=== PATIENT | female | born 1940 | race Caucasian/White ===

== ENCOUNTER 2018-06-20 01:19 | Inpatient (IN) | payer MEDICARE, OTHER ==
[~2018-06-20] VITALS: Ht 167.6 cm; Wt 76.4 kg
[2018-06-20] VITALS (7 sets, daily range): BP systolic 95–132; BP diastolic 48–68
[2018-06-20] MEDS ORDERED: Isovue-300 100ml vial INJ PRN (02:00)
[2018-06-20] MEDS ORDERED: Morphine Sulfate 4mg/ml Inj (IV/IM USE ONLY) IVP ONE ×2 (02:00→03:30)
--- NOTE | 2018-06-20 02:21 | Emergency Room Report ---
History of Present Illness General Chief Complaint: Abdominal Pain Source: Patient, Family Member Present Illness HPI Patient presents with severe abdominal pain. The began earlier this morning. She feels it across her lower abdomen. She states that she feels that her colon is going to explode. She moved her bowels last night without difficulty. She feels nausea without vomiting. There is no blood in the stool. She denies any dysuria. She's never had this pain before. The pain is constant and nonradiating. The pain is rated 10/10. No medicines were taken. No fevers. No URI sy, chest pain, cough, dyspnea, rashes, headache, joint pain. The pain makes her feel anxious. She feels like she needs to pass gas. H/O valve surgery (details unclear), not on anticoagulation. No DM, HTN. Allergies: Coded Allergies: No Known Allergies (Unverified , 06/20/18) Patient History Past Medical History: see triage record Past Surgical History: other - valve surgery Social History: Denies: smoking, alcohol use, drug use Social History Narrative with sig other Last Menstrual Period: 4 decades ago Now: No Reviewed Nursing Documentation: PMH: Agreed; PSxH: Agreed Nursing Documentation-PMH Hx Cardiac Problems: Yes - heart valve surgery Review of Systems All Other Systems: negative except mentioned in HPI Physical Exam Vital Signs Date Time Temp Pulse Resp B/P (MAP) Pulse Ox O2 Delivery O2 Flow Rate FiO2 06/20/18 01:39 99.5 66 12 127/64 96 Room Air Sp02 EP Interpretation: reviewed, normal General Appearance: no apparent distress, GCS 15, mild distress Head: normocephalic Eyes: bilateral eye normal inspection, bilateral eye PERRL ENT: moist mucus membranes Neck: supple Respiratory: lungs clear, normal breath sounds Cardiovascular #1: regular rate, rhythm Cardiovascular #2: 2+ radial (R) Gastrointestinal: normal inspection, no mass, non-distended, no rebound, guarding, tenderness - diffuse, other - no referred pain Genitourinary: no CVA tenderness Musculoskeletal: back normal, gait/station normal, normal range of motion Neurologic: alert, oriented x3, grossly normal Psychiatric: anxious Skin: normal inspection, warm/dry Medical Decision Making Diagnostic Impression: Primary Impression: Abdominal pain Qualified Codes: R10.84 - Generalized abdominal pain Additional Impressions: Duodenitis Pancratic lesions Cholelithiasis Qualified Codes: K80.20 - Calculus of gallbladder without cholecystitis without obstruction ER Course Patient presents with severe lower abdominal pain. Differential includes appendicitis, diverticulitis, UTI, pyelonephritis amongst others. Evaluation will be with labs, CT the abdomen and pelvis, EKG and chest x-ray. The patient will be treated with IV hydration and analgesia. Temporal low threshold for starting antibiotics based on the CT read report. EKG with normal sinus rhythm with a right axis deviation no acute changes. Leukocytosis. Awaiting CT but will need admission as still with pain (though improved). Delay due to problems with CT scan. CT with question of pancreatitis vs duodenitis. (Lipase normal). Start Cefepime and Flagyl. Patient still with pain but periods of improvement. Contact Dr. Romero for admission. Also contact Dr. Carlson. Laboratory Tests Test 06/20/18 01:45 06/20/18 01:50 Urine Color Yellow Urine Appearance Clear Urine pH 7 (4.5-8.0) Urine Specific [place] 1.010 (1.005-1.035) Urine Protein 1+ (NEGATIVE) H Urine Glucose (UA) Negative (NEGATIVE) Urine Ketones Negative (NEGATIVE) Urine Blood 3+ (NEGATIVE) H Urine Nitrite Negative (NEGATIVE) Urine Bilirubin Negative (NEGATIVE) Urine Urobilinogen 1 MG/DL (0.0-1.0) H Urine Leukocyte Esterase 1+ (NEGATIVE) H Urine RBC 2-4 /HPF (0 - 2) H Urine WBC 2-4 /HPF (0 - 2) Urine Squamous Epithelial Cells Occasional /LPF Urine Bacteria Occasional /HPF (NONE) White Blood Count 14.3 K/UL (4.8-10.8) H Red Blood Count 4.98 M/UL (4.20-5.40) Hemoglobin 14.6 G/DL (12.0-16.0) Hematocrit 43.7 % (37.0-47.0) Mean Corpuscular Volume 88 FL (80-99) Mean Corpuscular Hemoglobin 29.4 PG (27.0-31.0) Mean Corpuscular Hemoglobin Concent 33.5 G/DL (32.0-36.0) Red Cell Distribution Width 11.6 % (11.6-14.8) Platelet Count 241 K/UL (150-450) Mean Platelet Volume 7.4 FL (6.5-10.1) Neutrophils (%) (Auto) 83.3 % (45.0-75.0) H Lymphocytes (%) (Auto) 8.6 % (20.0-45.0) L Monocytes (%) (Auto) 6.8 % (1.0-10.0) Eosinophils (%) (Auto) 0.6 % (0.0-3.0) Basophils (%) (Auto) 0.7 % (0.0-2.0) Prothrombin Time 12.3 SEC (9.30-11.50) H Prothrombin Time INR 1.2 (0.9-1.1) H PTT 32 SEC (23-33) Sodium Level 135 MMOL/L (136-145) L Potassium Level 4.2 MMOL/L (3.5-5.1) Chloride Level 99 MMOL/L (98-107) Carbon Dioxide Level 34 MMOL/L (21-32) H Anion Gap 3 mmol/L (5-15) L Blood Urea Nitrogen 13 mg/dL (7-18) Creatinine 0.8 MG/DL (0.55-1.30) Estimate Glomerular Filtration Rate mL/min (>60) Glucose Level 149 MG/DL (74-106) H Calcium Level 9.4 MG/DL (8.5-10.1) Total Bilirubin 0.8 MG/DL (0.2-1.0) Aspartate Amino Transferase (AST) 14 U/L (15-37) L Alanine Aminotransferase (ALT) 16 U/L (12-78) Alkaline Phosphatase 46 U/L (46-116) Troponin I 0.000 ng/mL (0.000-0.056) Total Protein 8.3 G/DL (6.4-8.2) H Albumin 3.4 G/DL (3.4-5.0) Globulin 4.9 g/dL Albumin/Globulin Ratio 0.7 (1.0-2.7) L Lipase 309 U/L (73-393) EKG Diagnostic Results Rate: normal Rhythm: NSR ST Segments: no acute changes - R axis Rhythm Strip Diag. Results EP Interpretation: yes Rhythm: NSR, no PVC's, no ectopy Chest X-Ray Diagnostic Results Chest X-Ray Diagnostic Results : Chest X-Ray Ordered: Yes # of Views/Limited/Complete: 1 View Indication: Other EP Interpretation: Yes Interpretation: no consolidation, no effusion, no pneumothorax Impression: No acute disease Electronically Signed by: Roverto Acosta MD CT/MRI/US Diagnostic Results CT/MRI/US Diagnostic Results : Imaging Test Ordered: abd/pelvis Impression Cholelithiasis. Infiltration mesenteric root - non-specific though suspect infiltration around duodenum and pancreas. Ectatic biliary tree with punctate debris in CBD. Cystic lesions in region of uncinate process of pancreas. Wall thickening of duodenum Diverticulosis. Appendix normal. Fibroid uterus. Last Vital Signs Date Time Temp Pulse Resp B/P (MAP) Pulse Ox O2 Delivery O2 Flow Rate FiO2 06/20/18 10:51 Room Air 06/20/18 09:00 97.7 65 18 108/55 (72) 98 Status: improved Disposition: ADMITTED INPATIENT Condition: Serious Roverto Acosta MD Jun 20, 2018 02:21
[2018-06-20 02:23] LABS: APPEARANCE,URINE CLEAR; BILIRUBIN, URINE NEGATIVE (NEGATIVE); GLUCOSE, URINE (UA) NEGATIVE (NEGATIVE); KETONES,URINE NEGATIVE (NEGATIVE); LEUKOCYTE ESTERASE ,URINE 1+ (NEGATIVE); NITRITE,URINE NEGATIVE (NEGATIVE); PH,URINE 7 (4.5-8.0); PROTEIN,URINE 1+ (NEGATIVE); UROBILINOGEN,URINE 1 MG/DL (0.0-1.0)
[2018-06-20 02:23] LABS: BASOPHILS % (AUTO) 0.7 % (0.0-2.0); EOSINOPHILS % (AUTO) 0.6 % (0.0-3.0); HEMATOCRIT 43.7 % (37.0-47.0); HEMOGLOBIN 14.6 G/DL (12.0-16.0); LYMPHOCYTES % (AUTO) 8.6 % (20.0-45.0); MEAN CORPUSCULAR VOLUME 88 FL (80-99); MONOCYTES % (AUTO) 6.8 % (1.0-10.0); NEUTROPHILS % (AUTO) 83.3 % (45.0-75.0); PLATELET COUNT 241 K/UL (150-450); RED BLOOD COUNT 4.98 M/UL (4.20-5.40); RED CELL DISTRIBUTION WIDTH 11.6 % (11.6-14.8); WHITE BLOOD COUNT 14.3 K/UL (4.8-10.8)
[2018-06-20 02:29] LABS: COLOR,URINE YELLOW
[2018-06-20 02:32] LABS: ANION GAP 3 mmol/L (5-15); BLOOD UREA NITROGEN 13 mg/dL (7-18); CALCIUM 9.4 MG/DL (8.5-10.1); CARBON DIOXIDE 34 MMOL/L (21-32); CHLORIDE 99 MMOL/L (98-107); CREATININE 0.8 MG/DL (0.55-1.30); POTASSIUM 4.2 MMOL/L (3.5-5.1); SODIUM 135 MMOL/L (136-145)
[2018-06-20 02:33] LABS: INR 1.2 (0.9-1.1)
[2018-06-20 02:37] LABS: ALANINE AMINOTRANSFERASE 16 U/L (12-78); ALBUMIN 3.4 G/DL (3.4-5.0); ALBUMIN/GLOBULIN RATIO 0.7 (1.0-2.7); ALKALINE PHOSPHATASE 46 U/L (46-116); ASPARTATE AMINO TRANSFERASE 14 U/L (15-37); BILIRUBIN,TOTAL 0.8 MG/DL (0.2-1.0)
--- NOTE | 2018-06-20 03:42 | Diagnostic Imaging Report ---
EXAM: XR Chest, 1 View CLINICAL HISTORY: ABD PAIN TECHNIQUE: Frontal view of the chest. COMPARISON: 01/26/07 chest radiography. FINDINGS: Lungs: No consolidation, pleural effusion or pneumothorax. Pleural space: See above. Heart: Cardiomegaly demonstrated. Mediastinum: No mediastinal or hilar enlargement. Trachea is unremarkable. Bones/joints: Evidence of prior valvuloplasty with intact sternotomy wires. No concerning bony abnormalities. Vasculature: Atherosclerotic calcifications of the nonenlarged thoracic aortic arch. IMPRESSION: No acute cardiopulmonary disease.
[2018-06-20] MEDS ORDERED: Cefepime HCl 1 GM in D5W 55 ML IVPB ONE (06:30)
[2018-06-20] MEDS ORDERED: Morphine Sulfate 4mg/ml Inj (IV/IM USE ONLY) ONE (06:58)
[2018-06-20] MEDS: Morphine Sulfate 4mg/ml Inj (IV/IM USE ONLY) IVP PRN ×2 (07:00→20:27)
[2018-06-20] MEDS ORDERED: UNOBMED (07:29)
--- NOTE | 2018-06-20 07:32 | Diagnostic Imaging Report ---
EXAM: CT Abdomen and Pelvis With Intravenous Contrast. CLINICAL HISTORY: ABD PAIN TECHNIQUE: Axial computed tomography images of the abdomen and pelvis with intravenous contrast. CTDI is 16.7 mGy and DLP is 757 mGy-cm. One or more of the following dose reduction techniques were used: automated exposure control, adjustment of the mA and/or kV according to patient size, use of iterative reconstruction technique. COMPARISON: No relevant prior studies available. FINDINGS: Lower thorax: No acute findings. ABDOMEN: Liver: Unremarkable. No mass. Gallbladder and bile ducts: A gallstone is seen within the gallbladder lumen. No gallbladder distention. No evidence of biliary obstruction. Pancreas: Moderate edema seen within the pancreatic head and uncinate process, with peripancreatic infiltrative changes. Findings are most likely due to a focal acute pancreatitis. There is a cyst or dilated side duct within the uncinate process, measuring up to 20 mm in diameter. The main pancreatic duct is of normal caliber. The pancreatic body and tail are within normal limits. Spleen: Unremarkable. No splenomegaly. Adrenals: Unremarkable. No mass. Kidneys and ureters: Unremarkable. No hydronephrosis. No solid mass. PELVIS: Bladder: Unremarkable. No mass. Reproductive: Unremarkable as visualized. Appendix: No findings to suggest acute appendicitis. ABDOMEN + PELVIS: Stomach and bowel: Mild reactive wall thickening of the duodenum. No bowel obstruction. Scattered colonic diverticulosis without evidence of an acute diverticulitis. Peritoneum: Unremarkable. No significant fluid collection. No free air. Lymph nodes: Unremarkable. No enlarged lymph nodes. Vasculature: Unremarkable. No aortic aneurysm. Bones: No acute fracture. IMPRESSION: Peripancreatic infiltrative changes with edema of the pancreatic head and uncinate process, as well as reactive wall thickening of the adjacent duodenum. Findings are most likely due to an acute pancreatitis. Please correlate with serum pancreatic enzymes. A primary infectious/inflammatory duodenitis is less likely. Dilated pancreatic side duct or 2 cm cyst seen within the uncinate process. This can be further evaluated on follow-up CT or MRI. Cholelithiasis, without evidence of biliary obstruction. Colonic diverticulosis, without evidence of acute diverticulitis.
[2018-06-20] MEDS ORDERED: Cefepime 1gm vial ONE (07:50)
--- NOTE | 2018-06-20 08:59 | History and Physical ---
History of Present Illness General Date patient seen: Jun 20, 2018 Time patient seen: 08:48 Reason for Hospitalization: Abdominal Pain Present Illness HPI 78 yo female with h/o cad s/p cabg presents with severe epigastric pain. States pain is midepigastric, nonradiating, burning, 10/10 in severity, associated with nausea and vomiting. Patient states this started two days ago. Denies any diarrhea/constipation or dysuria. social hx: denies alcohol use, denies drug use, denies smoking. code status reviewed with patient: FULL CODE fam hx: reviewed, denies any significant past family history Allergies: Coded Allergies: No Known Allergies (Unverified , 06/20/18) Medication History Miscellaneous Medications Unable to Obtain Medications (Unable To Obtain Meds), (Reported) Patient History History Provided By: Patient Healthcare decision maker Resuscitation status Advanced Directive on File Review of Systems Constitutional: Reports: weakness; Denies: no symptoms, see HPI, chills, sweats , fever, malaise, other Eye: Denies: no symptoms, see HPI, eye pain, blurred vision, tearing, double vision, nose pain, nose congestion, acuity changes, discharge, other ENT: Denies: no symptoms, see HPI, ear pain, ear discharge, nose pain, nose congestion, throat pain, throat swelling, mouth pain, hearing loss, nasal discharge, other Respiratory: Denies: no symptoms, see HPI, cough, orthopnea, shortness of breath, stridor, wheezing, LALA, sputum, other Cardiovascular: Denies: no symptoms, see HPI, chest pain, edema, palpitations, syncope, PND, other Gastrointestinal: Reports: abdominal pain; Denies: no symptoms, see HPI, constipation, diarrhea, nausea, vomiting, melena, hematemesis, other Genitourinary: Denies: no symptoms, see HPI, discharge, dysuria, frequency, hematuria, pain, retention, incontinence, urgency, vag bleed/dc, other Musculoskeletal: Denies: no symptoms, see HPI, back pain, gout, joint pain, joint swelling, muscle pain, muscle stiffness, other Skin: Denies: no symptoms, see HPI, rash, change in color, change in hair/nails , dryness, lesions, other Psychiatric: Denies: no symptoms, see HPI, prior hx, anxiety, depressed feelings, emotional problems, SI, HI, hallucinations, other Neurological: Denies: no symptoms, see HPI, headache, numbness, paresthesia, seizure, tingling, tremors, focal weakness, syncope, dizziness, other Endocrine: Denies: no symptoms, see HPI, excessive sweating, flushing, intolerance to temperature, increased thirst, increased urine, unexplained weight loss, other Hematologic/Lymphatic: Denies: no symptoms, see HPI, anemia, blood clots, easy bleeding, easy bruising, swollen glands, diathesis, other Physical Exam General Appearance: WD/WN, alert, moderate distress Lines, tubes and drains: peripheral HEENT: normocephalic, atraumatic, anicteric, mucous membranes moist, PERRL Neck: non-tender, normal alignment, supple, normal inspection Respiratory/Chest: chest wall non-tender, lungs clear, normal breath sounds, no respiratory distress, no accessory muscle use Cardiovascular/Chest: normal peripheral pulses Abdomen: normal bowel sounds, soft, no organomegaly, no mass, tender - midepigastric ttp Extremities: normal range of motion, non-tender, normal inspection, no calf tenderness, normal capillary refill Skin Exam: normal pigmentation, warm/dry 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, no motor/sensory deficits, alert, oriented x 3, responsive, normal mood/affect Last 24 Hour Vital Signs Date Time Temp Pulse Resp B/P (MAP) Pulse Ox O2 Delivery O2 Flow Rate FiO2 06/20/18 08:40 98.0 90 16 102/73 100 Room Air 06/20/18 07:35 97.5 06/20/18 07:18 97.5 79 14 99/56 100 Room Air 06/20/18 05:15 99.5 81 18 124/48 98 Room Air 06/20/18 04:05 99.5 06/20/18 03:00 99.0 84 12 129/58 99 Room Air 06/20/18 02:50 99.5 06/20/18 02:00 66 12 Room Air 06/20/18 01:39 99.5 66 12 127/64 96 Room Air Laboratory Tests Test 06/20/18 01:45 06/20/18 01:50 Urine Color Yellow Urine Appearance Clear Urine pH 7 (4.5-8.0) Urine Specific [place] 1.010 (1.005-1.035) Urine Protein 1+ (NEGATIVE) H Urine Glucose (UA) Negative (NEGATIVE) Urine Ketones Negative (NEGATIVE) Urine Blood 3+ (NEGATIVE) H Urine Nitrite Negative (NEGATIVE) Urine Bilirubin Negative (NEGATIVE) Urine Urobilinogen 1 MG/DL (0.0-1.0) H Urine Leukocyte Esterase 1+ (NEGATIVE) H Urine RBC 2-4 /HPF (0 - 2) H Urine WBC 2-4 /HPF (0 - 2) Urine Squamous Epithelial Cells Occasional /LPF Urine Bacteria Occasional /HPF (NONE) White Blood Count 14.3 K/UL (4.8-10.8) H Red Blood Count 4.98 M/UL (4.20-5.40) Hemoglobin 14.6 G/DL (12.0-16.0) Hematocrit 43.7 % (37.0-47.0) Mean Corpuscular Volume 88 FL (80-99) Mean Corpuscular Hemoglobin 29.4 PG (27.0-31.0) Mean Corpuscular Hemoglobin Concent 33.5 G/DL (32.0-36.0) Red Cell Distribution Width 11.6 % (11.6-14.8) Platelet Count 241 K/UL (150-450) Mean Platelet Volume 7.4 FL (6.5-10.1) Neutrophils (%) (Auto) 83.3 % (45.0-75.0) H Lymphocytes (%) (Auto) 8.6 % (20.0-45.0) L Monocytes (%) (Auto) 6.8 % (1.0-10.0) Eosinophils (%) (Auto) 0.6 % (0.0-3.0) Basophils (%) (Auto) 0.7 % (0.0-2.0) Prothrombin Time 12.3 SEC (9.30-11.50) H Prothromb Time International Ratio 1.2 (0.9-1.1) H Activated Partial Thromboplast Time 32 SEC (23-33) Sodium Level 135 MMOL/L (136-145) L Potassium Level 4.2 MMOL/L (3.5-5.1) Chloride Level 99 MMOL/L (98-107) Carbon Dioxide Level 34 MMOL/L (21-32) H Anion Gap 3 mmol/L (5-15) L Blood Urea Nitrogen 13 mg/dL (7-18) Creatinine 0.8 MG/DL (0.55-1.30) Estimat Glomerular Filtration Rate mL/min (>60) Glucose Level 149 MG/DL (74-106) H Calcium Level 9.4 MG/DL (8.5-10.1) Total Bilirubin 0.8 MG/DL (0.2-1.0) Aspartate Amino Transf (AST/SGOT) 14 U/L (15-37) L Alanine Aminotransferase (ALT/SGPT) 16 U/L (12-78) Alkaline Phosphatase 46 U/L (46-116) Troponin I 0.000 ng/mL (0.000-0.056) Total Protein 8.3 G/DL (6.4-8.2) H Albumin 3.4 G/DL (3.4-5.0) Globulin 4.9 g/dL Albumin/Globulin Ratio 0.7 (1.0-2.7) L Lipase 309 U/L (73-393) Serum Alcohol Pending Height (Feet): 5 Height (Inches): 6.00 Weight (Pounds): 152 Medications Current Medications Medications (Trade) Dose Ordered Sig/Bettina Route PRN Reason Start Time Stop Time Status Last Admin Dose Admin Barium Sulfate (Readi-Cat 2) 450 ml NOW PRN ORAL Radiology Procedure 06/20/18 02:00 06/22/18 01:56 Cefepime HCl 1 gm/ Dextrose 55 ml @ 110 mls/hr EVERY 12 HOURS IVPB 06/20/18 09:00 06/27/18 08:59 UNV Heparin Sodium (Porcine) (Heparin 5000 units/ml) 5,000 units EVERY 12 HOURS SUBQ 06/20/18 09:00 07/20/18 08:59 Iopamidol (Isovue-300 100ml) 100 ml NOW PRN INJ Radiology Procedure 06/20/18 02:00 Metronidazole 100 ml @ 100 mls/hr Q8HR IVPB 06/20/18 14:00 06/27/18 13:59 UNV Morphine Sulfate (Morphine Sulfate) 4 mg Q4H PRN IVP For Pain 06/20/18 06:45 06/27/18 06:44 06/20/18 07:00 Sodium Chloride 1,000 ml @ 100 mls/hr Q10H IV 06/20/18 08:45 07/20/18 08:44 Sodium Chloride 1,000 ml @ 300 mls/hr Q3H20M IV 06/20/18 02:00 07/20/18 01:59 06/20/18 05:51 Assessment/Plan Problem List: (1) Acute pancreatitis Assessment & Plan: Lipase 309 CT abd/pelvis reviewed, showing concerns for pancreatitis gen surg consulted by ED pending recs npo IVF prn antiemetics pain control monitor closely ICD Codes: K85.90 - Acute pancreatitis without necrosis or infection, unspecified SNOMED: 317825304 (2) Intractable nausea and vomiting Assessment & Plan: prn antiemetics due to pancreatitis bowel rest pain control ICD Codes: R11.2 - Nausea with vomiting, unspecified SNOMED: 081393106 (3) Intractable abdominal pain Assessment & Plan: pain control due to pancreatitis/duodenitis cont current management with abx and sx management ICD Codes: R10.9 - Unspecified abdominal pain SNOMED: 44139221, 168394301 (4) Duodenitis Assessment & Plan: per ct read cefepime flagyl bcx x 2 sent ICD Codes: K29.80 - Duodenitis without bleeding SNOMED: 43775857 (5) Leukocytosis Assessment & Plan: wbc 14 not septic criteria abx fluids npo except for meds pain control gen surg consulted ICD Codes: D72.829 - Elevated white blood cell count, unspecified SNOMED: 362658346, 934173116 (6) CAD (coronary artery disease) Assessment & Plan: family to bring her home meds start asa for now resume home meds when arrives ICD Codes: I25.10 - Atherosclerotic heart disease of [place] coronary artery without angina pectoris SNOMED: 75342344 (7) S/P CABG (coronary artery bypass graft) Assessment & Plan: resume home meds when arrives stable ICD Codes: Z95.1 - Presence of aortocoronary bypass graft SNOMED: 42306189, 433665047, 852994763 Status: stable Assessment/Plan ppx: heparin, scd diet: npo except for meds I have have spent over77 minutes regarding patient care and counseling and 46 minutes of face to face time Liliana Romero MD Jun 20, 2018 08:59
[2018-06-20] MEDS ORDERED: Heparin 5000 units/ml inj SUBQ SCH (09:00)
[2018-06-20] MEDS: Aspirin Baby 81mg NG SCH (09:31)
[2018-06-20] MEDS ORDERED: Tubing IV Secondary IV ONE (14:55)
[2018-06-20] MEDS ORDERED: AMIODARONE HCL400 M1 ORAL (16:18)
[2018-06-20] MEDS ORDERED: WARFARIN SODIUM3 MG ORAL (16:18)
[2018-06-20] MEDS ORDERED: ATORVASTATIN CA20 MG ORAL (16:18)
[2018-06-20] MEDS ORDERED: VITAMIN D250000 UNI1 ORAL (16:18)
[2018-06-20] MEDS ORDERED: FEMHRT 0.5 MG-1 EACH PO (16:18)
[2018-06-20] MEDS ORDERED: CARDIZEM CD120 MG ORAL (16:18)
[2018-06-20] MEDS ORDERED: FUROSEMIDE40 MG ORAL (16:18)
[2018-06-20] MEDS ORDERED: DONEPEZIL HCL10 M2 ORAL (16:18)
[2018-06-20] MEDS ORDERED: OMEPRAZOLE20 M2 ORAL (16:18)
[2018-06-20] MEDS ORDERED: ROPINIROLE HC0.25 MG PO (16:18)
[2018-06-20] MEDS ORDERED: Vitamin D 1000 IU Tab ORAL SCH (16:30)
--- NOTE | 2018-06-20 17:53 | Consultation ---
History of Present Illness General Date patient seen: Jun 20, 2018 Chief Complaint: Abdominal Pain Reason for Consultation: abdominal pain Present Illness HPI 78 year old female with history of CAD s/p CABG presented with severe epigastric pain since 1-2 days ago. States pain is midepigastric, nonradiating, burning, 10/10 in severity, associated with nausea and vomiting. Was unable to tolerate pain and came for evaluation. Noted to have leukocytosis, abnormal labs, and CT with possible duodenitis / pancreatic head inflammation. Surgery called to evaluate. patient seen, chart reviewed, patient examined. Currently still with pain but states more generalized and somewhat improved. currently no n/v/f/c. Allergies: Coded Allergies: No Known Allergies (Unverified , 06/20/18) Medication History Scheduled Amiodarone Hcl* (Amiodarone Hcl*), 200 MG ORAL DAILY, (Reported) Atorvastatin Calcium* (Atorvastatin Calcium*), 20 MG ORAL BEDTIME, (Reported) Diltiazem Hcl* (Cardizem Cd*), 120 MG ORAL DAILY, (Reported) Donepezil Hcl* (Donepezil Hcl*), 10 MG ORAL DAILY, (Reported) Ergocalciferol (Vitamin D2)* (Vitamin D*), 50,000 UNIT ORAL ONCE A WEEK, ( Reported) Furosemide* (Lasix*), 40 MG ORAL DAILY, (Reported) Norethind Ac/Ethinyl Estradiol (Femhrt 0.5 Mg-2.5 Mcg Tablet), 1 EACH PO DAILY, (Reported) Omeprazole (Omeprazole), 20 MG ORAL DAILY, (Reported) Ropinirole Hcl* (Ropinirole Hcl*), 0.25 MG PO TID, (Reported) Warfarin Sod* (Warfarin Sod*), 3 MG ORAL DAILY, (Reported) Miscellaneous Medications Unable to Obtain Medications (Unable To Obtain Meds), (Reported) Patient History History Provided By: Patient, Medical Record, PMD Healthcare decision maker Resuscitation status Full Code Advanced Directive on File Past Medical/Surgical History Past Medical/Surgical History: (1) Acute pancreatitis (2) Leukocytosis (3) Intractable abdominal pain (4) Intractable nausea and vomiting (5) CAD (coronary artery disease) (6) Cholelithiasis (7) Abdominal pain (8) Duodenitis Review of Systems All Other Systems: negative except mentioned in HPI Physical Exam General Appearance: no apparent distress, alert Lines, tubes and drains: peripheral HEENT: mucous membranes moist Neck: supple, normal inspection Respiratory/Chest: normal breath sounds, no respiratory distress, no accessory muscle use Cardiovascular/Chest: normal peripheral pulses, normal rate Abdomen: normal bowel sounds, soft, no organomegaly, no mass, guarding, tender Extremities: normal inspection Skin Exam: warm/dry Neurologic: alert, responsive Last 24 Hour Vital Signs Date Time Temp Pulse Resp B/P (MAP) Pulse Ox O2 Delivery O2 Flow Rate FiO2 06/20/18 16:00 99.1 65 19 109/54 (72) 98 06/20/18 11:52 98.9 64 19 95/58 (70) 98 06/20/18 10:51 Room Air 06/20/18 09:00 97.7 65 18 108/55 (72) 98 06/20/18 07:35 97.5 06/20/18 07:18 97.5 79 14 99/56 100 Room Air 06/20/18 05:15 99.5 81 18 124/48 98 Room Air 06/20/18 04:05 99.5 06/20/18 03:00 99.0 84 12 129/58 99 Room Air 06/20/18 02:50 99.5 06/20/18 02:00 66 12 Room Air 06/20/18 01:39 99.5 66 12 127/64 96 Room Air Laboratory Tests Test 06/20/18 01:45 06/20/18 01:50 06/20/18 11:25 Urine Color Yellow Urine Appearance Clear Urine pH 7 (4.5-8.0) Urine Specific [place] 1.010 (1.005-1.035) Urine Protein 1+ (NEGATIVE) H Urine Glucose (UA) Negative (NEGATIVE) Urine Ketones Negative (NEGATIVE) Urine Blood 3+ (NEGATIVE) H Urine Nitrite Negative (NEGATIVE) Urine Bilirubin Negative (NEGATIVE) Urine Urobilinogen 1 MG/DL (0.0-1.0) H Urine Leukocyte Esterase 1+ (NEGATIVE) H Urine RBC 2-4 /HPF (0 - 2) H Urine WBC 2-4 /HPF (0 - 2) Urine Squamous Epithelial Cells Occasional /LPF Urine Bacteria Occasional /HPF (NONE) White Blood Count 14.3 K/UL (4.8-10.8) H Red Blood Count 4.98 M/UL (4.20-5.40) Hemoglobin 14.6 G/DL (12.0-16.0) Hematocrit 43.7 % (37.0-47.0) Mean Corpuscular Volume 88 FL (80-99) Mean Corpuscular Hemoglobin 29.4 PG (27.0-31.0) Mean Corpuscular Hemoglobin Concent 33.5 G/DL (32.0-36.0) Red Cell Distribution Width 11.6 % (11.6-14.8) Platelet Count 241 K/UL (150-450) Mean Platelet Volume 7.4 FL (6.5-10.1) Neutrophils (%) (Auto) 83.3 % (45.0-75.0) H Lymphocytes (%) (Auto) 8.6 % (20.0-45.0) L Monocytes (%) (Auto) 6.8 % (1.0-10.0) Eosinophils (%) (Auto) 0.6 % (0.0-3.0) Basophils (%) (Auto) 0.7 % (0.0-2.0) Prothrombin Time 12.3 SEC (9.30-11.50) H Prothromb Time International Ratio 1.2 (0.9-1.1) H Activated Partial Thromboplast Time 32 SEC (23-33) Sodium Level 135 MMOL/L (136-145) L Potassium Level 4.2 MMOL/L (3.5-5.1) Chloride Level 99 MMOL/L (98-107) Carbon Dioxide Level 34 MMOL/L (21-32) H Anion Gap 3 mmol/L (5-15) L Blood Urea Nitrogen 13 mg/dL (7-18) Creatinine 0.8 MG/DL (0.55-1.30) Estimat Glomerular Filtration Rate mL/min (>60) Glucose Level 149 MG/DL (74-106) H Calcium Level 9.4 MG/DL (8.5-10.1) Total Bilirubin 0.8 MG/DL (0.2-1.0) Aspartate Amino Transf (AST/SGOT) 14 U/L (15-37) L Alanine Aminotransferase (ALT/SGPT) 16 U/L (12-78) Alkaline Phosphatase 46 U/L (46-116) Troponin I 0.000 ng/mL (0.000-0.056) Total Protein 8.3 G/DL (6.4-8.2) H Albumin 3.4 G/DL (3.4-5.0) Globulin 4.9 g/dL Albumin/Globulin Ratio 0.7 (1.0-2.7) L Lipase 309 U/L (73-393) Serum Alcohol < 3 mg/dL Urine Opiates Screen Positive (NEGATIVE) H Urine Barbiturates Screen Negative (NEGATIVE) Phencyclidine (PCP) Screen Negative (NEGATIVE) Urine Amphetamines Screen Negative (NEGATIVE) Urine Benzodiazepines Screen Negative (NEGATIVE) Urine Cocaine Screen Negative (NEGATIVE) Urine Marijuana (THC) Screen Negative (NEGATIVE) Height (Feet): 5 Height (Inches): 6.00 Weight (Pounds): 152 Medications Current Medications Medications (Trade) Dose Ordered Sig/Bettina Route PRN Reason Start Time Stop Time Status Last Admin Dose Admin Amiodarone HCl (Cordarone) 400 mg DAILY ORAL 06/21/18 09:00 07/21/18 08:59 Aspirin (ASA) 81 mg DAILY NG 06/20/18 09:00 07/20/18 08:59 06/20/18 09:31 Atorvastatin Calcium (Lipitor) 20 mg BEDTIME ORAL 06/20/18 21:00 07/20/18 20:59 Barium Sulfate (Readi-Cat 2) 450 ml NOW PRN ORAL Radiology Procedure 06/20/18 02:00 06/22/18 01:56 Cefepime HCl 1 gm/ Dextrose 55 ml @ 110 mls/hr Q24H IVPB 06/20/18 18:00 06/27/18 17:59 Donepezil HCl (Aricept) 10 mg QHS ORAL 06/20/18 21:00 07/20/18 20:59 Ergocalciferol (Drisdol) 50,000 intlu ONCE A WEEK ORAL 06/20/18 18:00 07/20/18 17:59 Furosemide (Lasix) 40 mg DAILY ORAL 06/21/18 09:00 07/21/18 08:59 Heparin Sodium (Porcine) (Heparin 5000 units/ml) 5,000 units EVERY 12 HOURS SUBQ 06/20/18 09:00 07/20/18 08:59 06/20/18 09:35 Iopamidol (Isovue-300 100ml) 100 ml NOW PRN INJ Radiology Procedure 06/20/18 02:00 Metronidazole 100 ml @ 100 mls/hr Q8HR IVPB 06/20/18 14:00 06/27/18 13:59 06/20/18 14:14 Morphine Sulfate (Morphine Sulfate) 4 mg Q4H PRN IVP For Pain 06/20/18 06:45 06/27/18 06:44 06/20/18 07:00 Ondansetron HCl (Zofran) 4 mg Q6H PRN IVP Nausea & Vomiting 06/20/18 09:00 07/20/18 08:59 Patient Own Medication (Patient's Own Med) 1 ea DAILY ORAL 06/21/18 09:00 07/21/18 08:59 Patient Own Medication (Patient's Own Med) 1 ea DAILY ORAL 06/21/18 09:00 07/21/18 08:59 Ropinirole HCl (Requip) 0.25 mg THREE TIMES A DAY ORAL 06/20/18 18:00 07/20/18 17:59 Sodium Chloride 1,000 ml @ 100 mls/hr Q10H IV 06/20/18 08:45 07/20/18 08:44 06/20/18 09:31 Warfarin Sodium (Coumadin per pharmacy) 1 ea DAILY PRN MISC Per rx protocol 06/20/18 16:30 07/20/18 16:29 Warfarin Sodium (Coumadin) 5 mg COUMADIN ORAL 06/21/18 17:00 06/21/18 18:00 Assessment/Plan Problem List: (1) Acute pancreatitis Assessment & Plan: seen as radiographic finding and clinically symptoms can correlate lipase normal possible resolving trend labs will treat clinically ICD Codes: K85.90 - Acute pancreatitis without necrosis or infection, unspecified SNOMED: 221295024 (2) Leukocytosis Assessment & Plan: UTI? on Abx trend labs ICD Codes: D72.829 - Elevated white blood cell count, unspecified SNOMED: 976916606, 486024131 (3) Intractable abdominal pain Assessment & Plan: possibly related to duodenitis or pancreatitis labs noted CT noted will follow clinically serial exams thank you US ordered may consider MRI ICD Codes: R10.9 - Unspecified abdominal pain SNOMED: 24490875, [id number] Eliel Carlson Jun 20, 2018 17:53
[2018-06-20] MEDS: Cefepime HCl 1 GM in D5W 55 ML IVPB SCH (18:10)
[2018-06-20] MEDS: rOPINIRole 0.25mg tab ORAL SCH (18:10)
[2018-06-20] MEDS: Vitamin D 50,000 units cap ORAL SCH (18:10)
[2018-06-20] MEDS ORDERED: Warfarin Sodium 5mg ORAL SCH (19:00)
[2018-06-20] MEDS: Donepezil 10mg tab ORAL SCH (20:21)
[2018-06-20] MEDS: Atorvastatin 20mg tab ORAL SCH (20:21)
[2018-06-21] VITALS (7 sets, daily range): BP systolic 97–141; BP diastolic 44–61
[2018-06-21 07:16] LABS: HEMATOCRIT 37.8 % (37.0-47.0); HEMOGLOBIN 12.5 G/DL (12.0-16.0); MEAN CORPUSCULAR VOLUME 91 FL (80-99); PLATELET COUNT 195 K/UL (150-450); RED BLOOD COUNT 4.16 M/UL (4.20-5.40); WHITE BLOOD COUNT 15.2 K/UL (4.8-10.8)
[2018-06-21 07:41] LABS: ALANINE AMINOTRANSFERASE 14 U/L (12-78); ALBUMIN 2.6 G/DL (3.4-5.0); ALBUMIN/GLOBULIN RATIO 0.6 (1.0-2.7); ALKALINE PHOSPHATASE 40 U/L (46-116); AMYLASE 45 U/L (25-115); ANION GAP 8 mmol/L (5-15); ASPARTATE AMINO TRANSFERASE 13 U/L (15-37); BILIRUBIN,TOTAL 0.6 MG/DL (0.2-1.0); BLOOD UREA NITROGEN 15 mg/dL (7-18); CALCIUM 8.2 MG/DL (8.5-10.1); CARBON DIOXIDE 28 MMOL/L (21-32); CHLORIDE 105 MMOL/L (98-107); CREATININE 0.7 MG/DL (0.55-1.30); POTASSIUM 3.9 MMOL/L (3.5-5.1); SODIUM 141 MMOL/L (136-145)
[2018-06-21] MEDS: rOPINIRole 0.25mg tab ORAL SCH ×3 (09:16→19:03)
[2018-06-21] MEDS: Aspirin Baby 81mg NG SCH (09:16)
[2018-06-21] MEDS: Amiodarone 200mg tab ORAL SCH (09:16)
[2018-06-21] MEDS: Furosemide 40mg tab ORAL SCH (09:16)
[2018-06-21] MEDS: OMEPRAZOLE 20MG ORAL SCH (09:17)
[2018-06-21] MEDS: NORETHINDRONE ACETATE ORAL SCH (09:17)
[2018-06-21] MEDS: ETHINYL ESTRADIOL ORAL SCH (09:17)
--- NOTE | 2018-06-21 09:57 | General Progress Note ---
Assessment/Plan Problem List: (1) Acute pancreatitis Assessment & Plan: Lipase 309 CT abd/pelvis reviewed, showing concerns for pancreatitis gen surg recs much appreciated clear liquid diet IVF prn antiemetics pain control monitor closely ICD Codes: K85.90 - Acute pancreatitis without necrosis or infection, unspecified SNOMED: 565362375 (2) Intractable nausea and vomiting Assessment & Plan: prn antiemetics due to pancreatitis bowel rest pain control ICD Codes: R11.2 - Nausea with vomiting, unspecified SNOMED: 821975962 (3) Intractable abdominal pain Assessment & Plan: pain control due to pancreatitis/duodenitis cont current management with abx and sx management abdomen is very distended, NO bms overnight, will focus on bowel care today as this could be hunt to all her sx... enema, docusate/senna clear liquid diet ICD Codes: R10.9 - Unspecified abdominal pain SNOMED: 25669245, 552366997 (4) Duodenitis Assessment & Plan: per ct read cefepime flagyl bcx x 2 sent ICD Codes: K29.80 - Duodenitis without bleeding SNOMED: 15359078 (5) Leukocytosis Assessment & Plan: wbc 14 not septic criteria abx fluids npo except for meds pain control gen surg consulted ICD Codes: D72.829 - Elevated white blood cell count, unspecified SNOMED: 830460460, 822232494 (6) CAD (coronary artery disease) Assessment & Plan: resume home meds stable ICD Codes: I25.10 - Atherosclerotic heart disease of [place] coronary artery without angina pectoris SNOMED: 50154924 Qualifiers: Qualified Codes: I25.10 - Atherosclerotic heart disease of [place] coronary artery without angina pectoris (7) S/P CABG (coronary artery bypass graft) Assessment & Plan: resume home meds when arrives stable ICD Codes: Z95.1 - Presence of aortocoronary bypass graft SNOMED: 19539168, 496340755, 359356737 Status: stable Assessment/Plan ppx: coumadin, scd diet:clear liquid diet as tolerated I have have spent over 44 minutes regarding patient care and counseling and 30 minutes of face to face time Subjective Date patient seen: Jun 21, 2018 Time patient seen: 09:52 Allergies: Coded Allergies: No Known Allergies (Unverified , 06/20/18) Subjective f/u intractable abdominal pain, intractable nausea/vomiting, pancreatitis nausea and vomiting seem to be improving a bit however still has occasional sx denies any BMs still denies any fevers/chills states abd pain is improving however patient is on opiates and antiemetics ROS: 12 point ros reviewed and negative except for the above Objective Last 24 Hour Vital Signs Date Time Temp Pulse Resp B/P (MAP) Pulse Ox O2 Delivery O2 Flow Rate FiO2 06/21/18 04:00 98.1 72 19 111/57 (75) 92 06/21/18 00:46 66 110/53 (72) 06/21/18 00:40 97.7 67 19 97/44 (61) 94 06/21/18 00:10 67 20 Nasal Cannula 2.0 28 06/20/18 21:28 Nasal Cannula 2.0 06/20/18 20:57 99.1 06/20/18 20:00 99.1 69 19 132/68 (89) 95 06/20/18 16:00 99.1 65 19 109/54 (72) 98 06/20/18 11:52 98.9 64 19 95/58 (70) 98 06/20/18 10:51 Room Air Intake and Output 06/20/18 06/21/18 19:00 07:00 Intake Total 800 ml 1000 ml Balance 800 ml 1000 ml Intake IV Total 800 ml 1000 ml # Voids 3 4 Laboratory Tests 06/20/18 11:25: Urine Opiates Screen PositiveH, Urine Barbiturates Screen Negative, Phencyclidine (PCP) Screen Negative, Urine Amphetamines Screen Negative, Urine Benzodiazepines Screen Negative, Urine Cocaine Screen Negative, Urine Marijuana (THC) Screen Negative 06/21/18 05:50: White Blood Count 15.2H, Red Blood Count 4.16L, Hemoglobin 12.5, Hematocrit 37.8 , Mean Corpuscular Volume 91, Mean Corpuscular Hemoglobin 30.0, Mean Corpuscular Hemoglobin Concent 33.1, Red Cell Distribution Width 12.0, Platelet Count 195, Mean Platelet Volume 7.0, Neutrophils (%) (Auto) , Lymphocytes (%) ( Auto) , Monocytes (%) (Auto) , Eosinophils (%) (Auto) , Basophils (%) (Auto) , Differential Total Cells Counted 100, Neutrophils % (Manual) 84H, Lymphocytes % (Manual) 11L, Monocytes % (Manual) 5, Eosinophils % (Manual) 0, Basophils % ( Manual) 0, Band Neutrophils 0, Platelet Estimate Adequate, Platelet Morphology Normal, Red Blood Cell Morphology Normal, Erythrocyte Sedimentation Rate 64H, Sodium Level 141, Potassium Level 3.9, Chloride Level 105, Carbon Dioxide Level 28, Anion Gap 8, Blood Urea Nitrogen 15, Creatinine 0.7, Estimat Glomerular Filtration Rate , Glucose Level 75, Calcium Level 8.2L, Total Bilirubin 0.6, Aspartate Amino Transf (AST/SGOT) 13L, Alanine Aminotransferase (ALT/SGPT) 14, Alkaline Phosphatase 40L, C-Reactive Protein, Quantitative 33.0H, Total Protein 7.2, Albumin 2.6L, Globulin 4.6, Albumin/Globulin Ratio 0.6L, Amylase Level 45, Lipase 116 Height (Feet): 5 Height (Inches): 6.00 Weight (Pounds): 152 General Appearance: WD/WN, no apparent distress EENT: PERRL/EOMI, normal ENT inspection, TMs normal, pharynx normal Neck: non-tender, normal alignment, supple Cardiovascular: normal peripheral pulses, normal rate, regular rhythm Respiratory/Chest: chest wall non-tender, lungs clear, normal breath sounds, no respiratory distress, no accessory muscle use, respiratory distress Abdomen: distended, other - mild ttp, tense abdomen Extremities: normal range of motion, non-tender, normal inspection, no calf tenderness 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
[2018-06-21] MEDS ORDERED: Docusate Sod/Senna tab ORAL PRN (10:00)
[2018-06-21 10:19] LABS: INR 1.8 (0.9-1.1)
[2018-06-21] MEDS ORDERED: Gadavist 7.5mMol/7.5ml vial IV ONE (10:45)
[2018-06-21] MEDS ORDERED: Gadavist 7.5mMol/7.5ml vial IV PRN (10:45)
--- NOTE | 2018-06-21 11:00 | Diagnostic Imaging Report ---
Indication: Abdominal distention Technique: Supine view of the abdomen Comparison: [employer] image from CT scan dated 06/20/2018 Findings: Contrast from previously demonstrated CT scan is seen in the ascending and transverse colon. Prominent but not frankly dilated descending and sigmoid colon loops are demonstrated. No evidence of small bowel distention. Bowel gas pattern is similar to that seen on prior topogram except that colonic stool appears less abundant currently Impression: No acute process. Note transit of bowel contrast ingested for the CT scan into the colon
--- NOTE | 2018-06-21 11:01 | General Surgery Progress Note ---
General Surgery-Progress Note Subjective Additional Comments states abdominal pain improved today. still distended. no BM. no n/v/f/c. hungry. KUB noted labs noted Objective Last 24 Hour Vital Signs Date Time Temp Pulse Resp B/P (MAP) Pulse Ox O2 Delivery O2 Flow Rate FiO2 06/21/18 08:06 53 20 Nasal Cannula 2.0 28 06/21/18 04:00 98.1 72 19 111/57 (75) 92 06/21/18 00:46 66 110/53 (72) 06/21/18 00:40 97.7 67 19 97/44 (61) 94 06/21/18 00:10 67 20 Nasal Cannula 2.0 28 06/20/18 21:28 Nasal Cannula 2.0 06/20/18 20:57 99.1 06/20/18 20:00 99.1 69 19 132/68 (89) 95 06/20/18 16:00 99.1 65 19 109/54 (72) 98 06/20/18 11:52 98.9 64 19 95/58 (70) 98 I&O Intake and Output 06/20/18 06/21/18 19:00 07:00 Intake Total 800 ml 1000 ml Balance 800 ml 1000 ml Intake IV Total 800 ml 1000 ml # Voids 3 4 Drains: none Cardiovascular: RSR Respiratory: clear Abdomen: soft, distended, non-tender, present bowel sounds Extremities: no tenderness, no cyanosis Laboratory Tests Test 06/20/18 11:25 06/21/18 05:50 06/21/18 09:50 Urine Opiates Screen Positive (NEGATIVE) H Urine Barbiturates Screen Negative (NEGATIVE) Phencyclidine (PCP) Screen Negative (NEGATIVE) Urine Amphetamines Screen Negative (NEGATIVE) Urine Benzodiazepines Screen Negative (NEGATIVE) Urine Cocaine Screen Negative (NEGATIVE) Urine Marijuana (THC) Screen Negative (NEGATIVE) White Blood Count 15.2 K/UL (4.8-10.8) H Red Blood Count 4.16 M/UL (4.20-5.40) L Hemoglobin 12.5 G/DL (12.0-16.0) Hematocrit 37.8 % (37.0-47.0) Mean Corpuscular Volume 91 FL (80-99) Mean Corpuscular Hemoglobin 30.0 PG (27.0-31.0) Mean Corpuscular Hemoglobin Concent 33.1 G/DL (32.0-36.0) Red Cell Distribution Width 12.0 % (11.6-14.8) Platelet Count 195 K/UL (150-450) Mean Platelet Volume 7.0 FL (6.5-10.1) Neutrophils (%) (Auto) % (45.0-75.0) Lymphocytes (%) (Auto) % (20.0-45.0) Monocytes (%) (Auto) % (1.0-10.0) Eosinophils (%) (Auto) % (0.0-3.0) Basophils (%) (Auto) % (0.0-2.0) Differential Total Cells Counted 100 Neutrophils % (Manual) 84 % (45-75) H Lymphocytes % (Manual) 11 % (20-45) L Monocytes % (Manual) 5 % (1-10) Eosinophils % (Manual) 0 % (0-3) Basophils % (Manual) 0 % (0-2) Band Neutrophils 0 % (0-8) Platelet Estimate Adequate Platelet Morphology Normal Red Blood Cell Morphology Normal Erythrocyte Sedimentation Rate 64 MM/HR (0-30) H Sodium Level 141 MMOL/L (136-145) Potassium Level 3.9 MMOL/L (3.5-5.1) Chloride Level 105 MMOL/L (98-107) Carbon Dioxide Level 28 MMOL/L (21-32) Anion Gap 8 mmol/L (5-15) Blood Urea Nitrogen 15 mg/dL (7-18) Creatinine 0.7 MG/DL (0.55-1.30) Estimat Glomerular Filtration Rate mL/min (>60) Glucose Level 75 MG/DL (74-106) Calcium Level 8.2 MG/DL (8.5-10.1) L Total Bilirubin 0.6 MG/DL (0.2-1.0) Aspartate Amino Transf (AST/SGOT) 13 U/L (15-37) L Alanine Aminotransferase (ALT/SGPT) 14 U/L (12-78) Alkaline Phosphatase 40 U/L (46-116) L C-Reactive Protein, Quantitative 33.0 mg/dL (0.00-0.90) H Total Protein 7.2 G/DL (6.4-8.2) Albumin 2.6 G/DL (3.4-5.0) L Globulin 4.6 g/dL Albumin/Globulin Ratio 0.6 (1.0-2.7) L Amylase Level 45 U/L (25-115) Lipase 116 U/L (73-393) Prothrombin Time 18.1 SEC (9.30-11.50) H Prothromb Time International Ratio 1.8 (0.9-1.1) H Plan Problems: (1) Acute pancreatitis Assessment & Plan: seen as radiographic finding and clinically symptoms can correlate lipase normal possible resolving trend labs will treat clinically (2) Leukocytosis Assessment & Plan: UTI? on Abx trend labs (3) Intractable abdominal pain Assessment & Plan: possibly related to duodenitis or pancreatitis labs noted CT noted will follow clinically serial exams will start clear liquids bowel care as seems to be constipated thank you Eliel Carlson Jun 21, 2018 11:01
[2018-06-21] MEDS ORDERED: Fleet's Mineral Oil Enema RECTAL SCH (13:30)
[2018-06-21] MEDS: Docusate 100mg cap ORAL SCH ×2 (14:34→19:03)
--- NOTE | 2018-06-21 15:52 | Diagnostic Imaging Report ---
Indication: Abdominal pain, nausea, vomiting, abnormal lipase Technique: Uriostegui-scale and duplex images of the upper abdomen were obtained. Doppler interrogation of the hepatic and pancreatic vessels Comparison: CT abdomen and pelvis 06/20/2018 Findings: There is trace right pleural effusion. Gallbladder demonstrates a gallstone. No gallbladder wall thickening nor pericholecystic fluid Sonographic Zurita's sign is negative. Common bile duct measures 7 mm in diameter. No intrahepatic biliary ductal dilatation. Liver demonstrates normal echogenicity, no focal abnormality. Portal vein and hepatic veins are patent. The pancreas demonstrates ectasia of the main pancreatic duct, which measures 3 mm in diameter. A cyst is seen in the uncinate process of the pancreas, measuring 18 x 17 mm. This is also described on recent CT. Spleen is unremarkable. Left kidney measures 11.4 cm in length. Right kidney measures 11.1 cm length. Both kidneys demonstrate normal echogenicity. There is mild fullness the right renal collecting system. No focal abnormality. Bilateral ureteral jets are noted within the bladder indicating ureteral patency. Abdominal aorta is partially obscured by bowel gas, visualized portions are non-aneurysmal . Impression: Cholelithiasis, also described on recent CT scan Mildly ectatic common bile duct. Significance uncertain as recent CT did not demonstrate any downstream obstructive lesion. Correlate with liver function tests Mildly ectatic main pancreatic duct, significance uncertain. Note patient has diagnosis of pancreatitis on recent CT 18 x 17 mm cyst within the uncinate process of the pancreas. Given history of pancreatitis, likely a small pseudocyst. However, a cystic neoplasm such as branch duct intraductal papillary mucinous neoplasm is also a possibility Mild right renal collecting system fullness, but no evidence of ureteral obstruction Note incomplete visualization of the abdominal aorta
[2018-06-21] MEDS ORDERED: Warfarin Sodium 3mg ORAL ONE (17:00)
[2018-06-21] MEDS ORDERED: Warfarin Sodium 5mg ORAL SCH (17:00)
[2018-06-21] MEDS ORDERED: Magnesium Citrate Liq Btl ORAL ONE (17:30)
[2018-06-21] MEDS: Cefepime HCl 1 GM in D5W 55 ML IVPB SCH (19:03)
[2018-06-21] MEDS: Donepezil 10mg tab ORAL SCH (20:14)
[2018-06-21] MEDS: Atorvastatin 20mg tab ORAL SCH (20:15)
[2018-06-22] VITALS: BP 131/80
[2018-06-22 04:00] VITALS: BP 111/58
[2018-06-22 07:06] LABS: INR 2.8 (0.9-1.1)
[2018-06-22 07:12] LABS: HEMOGLOBIN 12.2 G/DL (12.0-16.0); MEAN CORPUSCULAR VOLUME 90 FL (80-99); PLATELET COUNT 208 K/UL (150-450); RED CELL DISTRIBUTION WIDTH 11.9 % (11.6-14.8); WHITE BLOOD COUNT 14.1 K/UL (4.8-10.8)
[2018-06-22 07:28] LABS: ALANINE AMINOTRANSFERASE 11 U/L (12-78); ALBUMIN 2.5 G/DL (3.4-5.0); ALBUMIN/GLOBULIN RATIO 0.5 (1.0-2.7); ALKALINE PHOSPHATASE 44 U/L (46-116); ANION GAP 2 mmol/L (5-15); ASPARTATE AMINO TRANSFERASE 18 U/L (15-37); BILIRUBIN,TOTAL 0.4 MG/DL (0.2-1.0); BLOOD UREA NITROGEN 13 mg/dL (7-18); CALCIUM 8.1 MG/DL (8.5-10.1); CARBON DIOXIDE 35 MMOL/L (21-32); CHLORIDE 104 MMOL/L (98-107); CREATININE 0.6 MG/DL (0.55-1.30); SODIUM 141 MMOL/L (136-145)
[2018-06-22 08:00] VITALS: BP 121/63
--- NOTE | 2018-06-22 08:49 | General Progress Note ---
Assessment/Plan Problem List: (1) Acute pancreatitis Assessment & Plan: Lipase 309 CT abd/pelvis reviewed, showing concerns for pancreatitis gen surg recs much appreciated clear liquid diet IVF prn antiemetics pain control monitor closely ICD Codes: K85.90 - Acute pancreatitis without necrosis or infection, unspecified SNOMED: 300538100 (2) Intractable nausea and vomiting Assessment & Plan: prn antiemetics due to pancreatitis bowel rest pain control ICD Codes: R11.2 - Nausea with vomiting, unspecified SNOMED: 509981518 (3) Intractable abdominal pain Assessment & Plan: pain control due to pancreatitis/duodenitis cont current management with abx and sx management abdomen is very distended, NO bms overnight, will focus on bowel care today as this could be hunt to all her sx... cont liquid diet appreciate surgery recs cont bowel care, magnesium citrate to be given again and possibly another enema ICD Codes: R10.9 - Unspecified abdominal pain SNOMED: 87578132, 689154263 (4) Duodenitis Assessment & Plan: per ct read cefepime flagyl bcx x 2 sent ICD Codes: K29.80 - Duodenitis without bleeding SNOMED: 66290887 (5) Leukocytosis Assessment & Plan: wbc 14 not septic criteria abx fluids npo except for meds pain control gen surg consulted ICD Codes: D72.829 - Elevated white blood cell count, unspecified SNOMED: 230441744, 632531758 (6) CAD (coronary artery disease) Assessment & Plan: resume home meds stable ICD Codes: I25.10 - Atherosclerotic heart disease of [place] coronary artery without angina pectoris SNOMED: 14887619 Qualifiers: Qualified Codes: I25.10 - Atherosclerotic heart disease of [place] coronary artery without angina pectoris (7) S/P CABG (coronary artery bypass graft) Assessment & Plan: resume home meds when arrives stable ICD Codes: Z95.1 - Presence of aortocoronary bypass graft SNOMED: 40025634, 058808189, 263005418 (8) Constipation Assessment & Plan: continue with bowel care likely main cause of her sx appreciate surg recs ICD Codes: K59.00 - Constipation, unspecified SNOMED: 99203501 (9) Weakness generalized Assessment & Plan: will get PT and OT eval seems that she has become more weak during admission needs to start ambulating more, discussed with RN ICD Codes: R53.1 - Weakness SNOMED: 90070280 Assessment/Plan ppx: coumadin, scd diet:clear liquid diet as tolerated I have have spent over 44 minutes regarding patient care and counseling and 30 minutes of face to face time Subjective Allergies: Coded Allergies: No Known Allergies (Unverified , 06/20/18) Subjective f/u intractable abdominal pain, intractable nausea/vomiting, pancreatitis states nausea and vomiting improving, patient had two bowel movements yesterday after enema and magnesium citrate was given.. still feels constipated. 2nd BM was small. states she still doesnt have much of an appetite gen surg ofllowing denies any fevers/chills ROS: 12 point ros reviewed and negative except for the above Objective Last 24 Hour Vital Signs Date Time Temp Pulse Resp B/P (MAP) Pulse Ox O2 Delivery O2 Flow Rate FiO2 06/22/18 04:00 100.1 79 18 111/58 (75) 94 06/22/18 00:00 97.7 72 18 131/80 (97) 98 06/21/18 21:00 Nasal Cannula 2.0 Room Air 06/21/18 20:00 99.5 72 18 141/61 (87) 98 06/21/18 20:00 Nasal Cannula 2.0 28 06/21/18 20:00 92 Nasal Cannula 2.0 28 06/21/18 20:00 60 20 Nasal Cannula 2.0 28 06/21/18 16:00 98.2 66 20 103/50 (67) 95 06/21/18 12:00 97.7 69 21 117/60 (79) 96 06/21/18 09:00 Nasal Cannula 2.0 Intake and Output 06/21/18 06/22/18 18:59 06:59 Intake Total 480 ml Output Total 700 ml 600 ml Balance -220 ml -600 ml Intake Oral 480 ml Output Urine Total 700 ml 600 ml # Voids 2 # Bowel Movements 5 Laboratory Tests 06/21/18 09:50: Prothrombin Time 18.1H, Prothromb Time International Ratio 1.8H 06/22/18 06:00: Prothrombin Time 27.7H, Prothromb Time International Ratio 2.8H, White Blood Count 14.1H, Red Blood Count 4.10L, Hemoglobin 12.2, Hematocrit 37.0, Mean Corpuscular Volume 90, Mean Corpuscular Hemoglobin 29.7, Mean Corpuscular Hemoglobin Concent 32.9, Red Cell Distribution Width 11.9, Platelet Count 208, Mean Platelet Volume 7.0, Neutrophils (%) (Auto) , Lymphocytes (%) (Auto) , Monocytes (%) (Auto) , Eosinophils (%) (Auto) , Basophils (%) (Auto) , Neutrophils % (Manual) [Pending], Lymphocytes % (Manual) [Pending], Platelet Estimate [Pending], Platelet Morphology [Pending], Sodium Level 141, Potassium Level 4.0, Chloride Level 104, Carbon Dioxide Level 35H, Anion Gap 2L, Blood Urea Nitrogen 13, Creatinine 0.6, Estimat Glomerular Filtration Rate , Glucose Level 128H, Calcium Level 8.1L, Total Bilirubin 0.4, Aspartate Amino Transf (AST /SGOT) 18, Alanine Aminotransferase (ALT/SGPT) 11L, Alkaline Phosphatase 44L, Total Protein 7.1, Albumin 2.5L, Globulin 4.6, Albumin/Globulin Ratio 0.5L Height (Feet): 5 Height (Inches): 6.00 Weight (Pounds): 152 General Appearance: no apparent distress, alert EENT: PERRL/EOMI, normal ENT inspection, TMs normal, pharynx normal Neck: non-tender, normal alignment, supple, normal inspection Cardiovascular: normal peripheral pulses, normal rate, regular rhythm Respiratory/Chest: chest wall non-tender, lungs clear, normal breath sounds, no respiratory distress, no accessory muscle use Abdomen: normal bowel sounds, distended - distended and tense abdomen, non ttp Extremities: normal range of motion, non-tender, normal inspection 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
[2018-06-22] MEDS: Aspirin Baby 81mg NG SCH (09:03)
[2018-06-22] MEDS: Docusate 100mg cap ORAL SCH ×3 (09:04→17:42)
[2018-06-22] MEDS: Amiodarone 200mg tab ORAL SCH (09:05)
[2018-06-22] MEDS: ETHINYL ESTRADIOL ORAL SCH (09:06)
[2018-06-22] MEDS: Furosemide 40mg tab ORAL SCH (09:06)
[2018-06-22] MEDS: NORETHINDRONE ACETATE ORAL SCH (09:06)
[2018-06-22] MEDS: OMEPRAZOLE 20MG ORAL SCH (09:07)
[2018-06-22] MEDS: rOPINIRole 0.25mg tab ORAL SCH ×3 (09:08→17:42)
[2018-06-22] MEDS ORDERED: Magnesium Citrate Liq Btl ORAL SCH (10:00)
--- NOTE | 2018-06-22 10:11 | Diagnostic Imaging Report ---
Indication: Abdominal distention Technique: Supine view of the abdomen Comparison: 06/21/2018 Findings: Previously demonstrated: Contrast is no longer evident. Colon is prominent, gas-filled, but nondistended. Gas-filled nondilated small bowel loops are again demonstrated. No unusual masses or calcifications. There are degenerative changes of the thoracic and lumbar spine Impression: No acute process
--- NOTE | 2018-06-22 10:55 | General Surgery Progress Note ---
General Surgery-Progress Note Subjective Additional Comments low grade fevers. pain resolving. no n/v/f/c. tolerating clears labs improved Objective Last 24 Hour Vital Signs Date Time Temp Pulse Resp B/P (MAP) Pulse Ox O2 Delivery O2 Flow Rate FiO2 06/22/18 04:00 100.1 79 18 111/58 (75) 94 06/22/18 00:00 97.7 72 18 131/80 (97) 98 06/21/18 21:00 Nasal Cannula 2.0 Room Air 06/21/18 20:00 99.5 72 18 141/61 (87) 98 06/21/18 20:00 Nasal Cannula 2.0 28 06/21/18 20:00 92 Nasal Cannula 2.0 28 06/21/18 20:00 60 20 Nasal Cannula 2.0 28 06/21/18 16:00 98.2 66 20 103/50 (67) 95 06/21/18 12:00 97.7 69 21 117/60 (79) 96 I&O Intake and Output 06/21/18 06/22/18 19:00 07:00 Intake Total 480 ml Output Total 700 ml 600 ml Balance -220 ml -600 ml Intake Oral 480 ml Output Urine Total 700 ml 600 ml # Voids 2 # Bowel Movements 5 Drains: none Cardiovascular: RSR Respiratory: clear Abdomen: soft, distended, non-tender, present bowel sounds Extremities: no cyanosis Laboratory Tests Test 06/22/18 06:00 White Blood Count 14.1 K/UL (4.8-10.8) H Red Blood Count 4.10 M/UL (4.20-5.40) L Hemoglobin 12.2 G/DL (12.0-16.0) Hematocrit 37.0 % (37.0-47.0) Mean Corpuscular Volume 90 FL (80-99) Mean Corpuscular Hemoglobin 29.7 PG (27.0-31.0) Mean Corpuscular Hemoglobin Concent 32.9 G/DL (32.0-36.0) Red Cell Distribution Width 11.9 % (11.6-14.8) Platelet Count 208 K/UL (150-450) Mean Platelet Volume 7.0 FL (6.5-10.1) Neutrophils (%) (Auto) % (45.0-75.0) Lymphocytes (%) (Auto) % (20.0-45.0) Monocytes (%) (Auto) % (1.0-10.0) Eosinophils (%) (Auto) % (0.0-3.0) Basophils (%) (Auto) % (0.0-2.0) Differential Total Cells Counted 100 Neutrophils % (Manual) 94 % (45-75) H Lymphocytes % (Manual) 3 % (20-45) L Monocytes % (Manual) 3 % (1-10) Eosinophils % (Manual) 0 % (0-3) Basophils % (Manual) 0 % (0-2) Band Neutrophils 0 % (0-8) Platelet Estimate Adequate Platelet Morphology Normal Red Blood Cell Morphology Normal Prothrombin Time 27.7 SEC (9.30-11.50) H Prothromb Time International Ratio 2.8 (0.9-1.1) H Sodium Level 141 MMOL/L (136-145) Potassium Level 4.0 MMOL/L (3.5-5.1) Chloride Level 104 MMOL/L (98-107) Carbon Dioxide Level 35 MMOL/L (21-32) H Anion Gap 2 mmol/L (5-15) L Blood Urea Nitrogen 13 mg/dL (7-18) Creatinine 0.6 MG/DL (0.55-1.30) Estimat Glomerular Filtration Rate mL/min (>60) Glucose Level 128 MG/DL (74-106) H Calcium Level 8.1 MG/DL (8.5-10.1) L Total Bilirubin 0.4 MG/DL (0.2-1.0) Aspartate Amino Transf (AST/SGOT) 18 U/L (15-37) Alanine Aminotransferase (ALT/SGPT) 11 U/L (12-78) L Alkaline Phosphatase 44 U/L (46-116) L Total Protein 7.1 G/DL (6.4-8.2) Albumin 2.5 G/DL (3.4-5.0) L Globulin 4.6 g/dL Albumin/Globulin Ratio 0.5 (1.0-2.7) L Plan Problems: (1) Acute pancreatitis Assessment & Plan: seen as radiographic finding and clinically symptoms can correlate lipase normal possible resolving trend labs will treat clinically (2) Leukocytosis Assessment & Plan: UTI? on Abx trend labs (3) Intractable abdominal pain Assessment & Plan: possibly related to duodenitis or pancreatitis labs noted CT noted will follow clinically serial exams will start clear liquids advance diet as tolerated bowel care as seems to be constipated thank you Eliel Carlson Jun 22, 2018 10:55
[2018-06-22 12:00] VITALS: BP 123/59
[2018-06-22 16:00] VITALS: BP 106/53
[2018-06-22] MEDS ORDERED: Warfarin Sodium 1mg ORAL SCH (17:00)
[2018-06-22] MEDS: Cefepime HCl 1 GM in D5W 55 ML IVPB SCH (17:42)
[2018-06-22 20:00] VITALS: BP 127/66
[2018-06-22] MEDS ORDERED: Zolpidem 5mg tab ORAL SCH (21:30)
[2018-06-22] MEDS: Atorvastatin 20mg tab ORAL SCH (21:32)
[2018-06-22] MEDS: Donepezil 10mg tab ORAL SCH (21:32)
[2018-06-23] VITALS: BP 133/73
[2018-06-23 04:00] VITALS: BP 141/79
[2018-06-23 06:32] LABS: HEMATOCRIT 39.9 % (37.0-47.0); HEMOGLOBIN 12.9 G/DL (12.0-16.0); MEAN CORPUSCULAR VOLUME 92 FL (80-99); PLATELET COUNT 236 K/UL (150-450); RED BLOOD COUNT 4.36 M/UL (4.20-5.40); WHITE BLOOD COUNT 11.3 K/UL (4.8-10.8)
[2018-06-23 06:33] LABS: INR 3.3 (0.9-1.1)
[2018-06-23 06:54] LABS: ALANINE AMINOTRANSFERASE 11 U/L (12-78); ALBUMIN 2.4 G/DL (3.4-5.0); ALBUMIN/GLOBULIN RATIO 0.5 (1.0-2.7); ALKALINE PHOSPHATASE 50 U/L (46-116); AMYLASE 24 U/L (25-115); ANION GAP 1 mmol/L (5-15); ASPARTATE AMINO TRANSFERASE 17 U/L (15-37); BILIRUBIN,TOTAL 0.3 MG/DL (0.2-1.0); BLOOD UREA NITROGEN 11 mg/dL (7-18); CARBON DIOXIDE 39 MMOL/L (21-32); CHLORIDE 103 MMOL/L (98-107); CREATININE 0.6 MG/DL (0.55-1.30); POTASSIUM 3.7 MMOL/L (3.5-5.1); SODIUM 143 MMOL/L (136-145)
[2018-06-23] MEDS ORDERED: Fleet's Mineral Oil Enema RECTAL SCH (07:47)
--- NOTE | 2018-06-23 07:50 | General Progress Note ---
Assessment/Plan Problem List: (1) Acute pancreatitis Assessment & Plan: Lipase 309 CT abd/pelvis reviewed, showing concerns for pancreatitis gen surg recs much appreciated clear liquid diet , advance as tolerated IVF prn antiemetics pain control monitor closely ICD Codes: K85.90 - Acute pancreatitis without necrosis or infection, unspecified SNOMED: 681017334 (2) Intractable nausea and vomiting Assessment & Plan: prn antiemetics due to pancreatitis bowel rest pain control ICD Codes: R11.2 - Nausea with vomiting, unspecified SNOMED: 806381941 (3) Intractable abdominal pain Assessment & Plan: pain control due to pancreatitis/duodenitis cont current management with abx and sx management abdomen is very distended, NO bms overnight, will focus on bowel care today as this could be hunt to all her sx... cont liquid diet appreciate surgery recs cont bowel care, magnesium citrate to be given again and possibly another enema ICD Codes: R10.9 - Unspecified abdominal pain SNOMED: 96073653, 689126153 (4) Duodenitis Assessment & Plan: per ct read cefepime flagyl bcx x 2 sent ICD Codes: K29.80 - Duodenitis without bleeding SNOMED: 57209300 (5) Leukocytosis Assessment & Plan: wbc 14 not septic criteria abx fluids npo except for meds pain control gen surg consulted ICD Codes: D72.829 - Elevated white blood cell count, unspecified SNOMED: 863698482, 755519275 (6) CAD (coronary artery disease) Assessment & Plan: resume home meds stable ICD Codes: I25.10 - Atherosclerotic heart disease of [place] coronary artery without angina pectoris SNOMED: 75661504 Qualifiers: Qualified Codes: I25.10 - Atherosclerotic heart disease of [place] coronary artery without angina pectoris (7) S/P CABG (coronary artery bypass graft) Assessment & Plan: resume home meds when arrives stable ICD Codes: Z95.1 - Presence of aortocoronary bypass graft SNOMED: 91415839, 640926126, 160624940 (8) Constipation Assessment & Plan: continue with bowel care likely main cause of her sx appreciate surg recs ICD Codes: K59.00 - Constipation, unspecified SNOMED: 11673773 (9) Weakness generalized Assessment & Plan: will get PT and OT eval seems that she has become more weak during admission needs to start ambulating more, discussed with RN ICD Codes: R53.1 - Weakness SNOMED: 62201195 Status: stable Assessment/Plan ppx: coumadin, scd diet:clear liquid diet as tolerated I have have spent over 44 minutes regarding patient care and counseling and 32 minutes of face to face time Subjective Date patient seen: Jun 23, 2018 Time patient seen: 07:46 Allergies: Coded Allergies: No Known Allergies (Unverified , 06/20/18) Subjective f/u intractable abdominal pain, intractable nausea/vomiting, pancreatitis, duodenitis, uti n/v slowly improving still having abdominal distention having liquid BMs however she still feels as if she has a lot of stool denies any fevers or chills is very uncomfortable tolerated clear liquid diet cont to advance diet as tolerated will need to continue bowel care gen surg following ROS: 12 point ros reviewed and negative except for the above Objective Last 24 Hour Vital Signs Date Time Temp Pulse Resp B/P (MAP) Pulse Ox O2 Delivery O2 Flow Rate FiO2 06/23/18 04:00 97.3 104 20 141/79 (99) 99 06/23/18 00:00 97.7 111 20 133/73 (93) 93 06/22/18 21:00 Room Air Room Air 06/22/18 20:00 97.2 90 20 127/66 (86) 98 06/22/18 16:00 98.1 80 18 106/53 (70) 98 06/22/18 12:00 96.7 84 18 123/59 (80) 98 06/22/18 09:00 Nasal Cannula 2.0 Room Air 06/22/18 08:00 97.9 98 19 121/63 (82) 94 Intake and Output 06/22/18 06/23/18 18:59 06:59 Intake Total 680 ml 1100 ml Balance 680 ml 1100 ml Intake Oral 680 ml IV Total 1100 ml # Voids 1 5 # Bowel Movements 4 3 Laboratory Tests 06/22/18 11:20: Lactic Acid Level 0.70 06/23/18 05:05: White Blood Count 11.3H, Red Blood Count 4.36, Hemoglobin 12.9, Hematocrit 39.9 , Mean Corpuscular Volume 92, Mean Corpuscular Hemoglobin 29.7, Mean Corpuscular Hemoglobin Concent 32.4, Red Cell Distribution Width 12.0, Platelet Count 236, Mean Platelet Volume 6.7, Neutrophils (%) (Auto) , Lymphocytes (%) ( Auto) , Monocytes (%) (Auto) , Eosinophils (%) (Auto) , Basophils (%) (Auto) , Neutrophils % (Manual) [Pending], Lymphocytes % (Manual) [Pending], Platelet Estimate [Pending], Platelet Morphology [Pending], Erythrocyte Sedimentation Rate [Pending], Prothrombin Time 32.6H, Prothromb Time International Ratio 3.3H , Sodium Level 143, Potassium Level 3.7, Chloride Level 103, Carbon Dioxide Level 39H, Anion Gap 1L, Blood Urea Nitrogen 11, Creatinine 0.6, Estimat Glomerular Filtration Rate , Glucose Level 126H, Calcium Level 8.0L, Total Bilirubin 0.3, Aspartate Amino Transf (AST/SGOT) 17, Alanine Aminotransferase ( ALT/SGPT) 11L, Alkaline Phosphatase 50, C-Reactive Protein, Quantitative 36.4H, Total Protein 7.2, Albumin 2.4L, Globulin 4.8, Albumin/Globulin Ratio 0.5L, Amylase Level 24L Height (Feet): 5 Height (Inches): 6.00 Weight (Pounds): 168 General Appearance: no apparent distress, alert EENT: PERRL/EOMI, normal ENT inspection, TMs normal, pharynx normal Neck: non-tender, normal alignment, supple Cardiovascular: normal peripheral pulses, normal rate, regular rhythm Respiratory/Chest: chest wall non-tender, lungs clear, normal breath sounds Abdomen: normal bowel sounds, non tender, no organomegaly, no mass, distended Extremities: normal range of motion, non-tender 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
[2018-06-23 08:00] VITALS: BP 129/67
[2018-06-23] MEDS: Docusate 100mg cap ORAL SCH ×3 (08:29→17:19)
[2018-06-23] MEDS: Aspirin Baby 81mg ORAL SCH (08:29)
[2018-06-23] MEDS: Furosemide 40mg tab ORAL SCH (08:29)
[2018-06-23] MEDS: Amiodarone 200mg tab ORAL SCH (08:29)
[2018-06-23] MEDS: ETHINYL ESTRADIOL ORAL SCH (08:39)
[2018-06-23] MEDS: OMEPRAZOLE 20MG ORAL SCH (08:39)
[2018-06-23] MEDS: NORETHINDRONE ACETATE ORAL SCH (08:39)
[2018-06-23] MEDS: rOPINIRole 0.25mg tab ORAL SCH ×3 (08:49→17:19)
[2018-06-23] MEDS ORDERED: Fleet's Enema 133ml RECTAL ONE (11:45)
--- NOTE | 2018-06-23 11:56 | General Surgery Progress Note ---
General Surgery-Progress Note Subjective Additional Comments no acute events. +BM. states she still feels unwell. no n/v. low grade fevers Objective Last 24 Hour Vital Signs Date Time Temp Pulse Resp B/P (MAP) Pulse Ox O2 Delivery O2 Flow Rate FiO2 06/23/18 09:00 Room Air Room Air 06/23/18 08:00 99.5 99 20 129/67 (87) 96 06/23/18 04:00 97.3 104 20 141/79 (99) 99 06/23/18 00:00 97.7 111 20 133/73 (93) 93 06/22/18 21:00 Room Air Room Air 06/22/18 20:00 97.2 90 20 127/66 (86) 98 06/22/18 16:00 98.1 80 18 106/53 (70) 98 06/22/18 12:00 96.7 84 18 123/59 (80) 98 I&O Intake and Output 06/22/18 06/23/18 18:59 06:59 Intake Total 680 ml 1100 ml Balance 680 ml 1100 ml Intake Oral 680 ml IV Total 1100 ml # Voids 1 5 # Bowel Movements 4 3 Drains: none Cardiovascular: RSR Respiratory: clear Abdomen: soft, distended, non-tender, present bowel sounds Extremities: no cyanosis Laboratory Tests Test 06/23/18 05:05 White Blood Count 11.3 K/UL (4.8-10.8) H Red Blood Count 4.36 M/UL (4.20-5.40) Hemoglobin 12.9 G/DL (12.0-16.0) Hematocrit 39.9 % (37.0-47.0) Mean Corpuscular Volume 92 FL (80-99) Mean Corpuscular Hemoglobin 29.7 PG (27.0-31.0) Mean Corpuscular Hemoglobin Concent 32.4 G/DL (32.0-36.0) Red Cell Distribution Width 12.0 % (11.6-14.8) Platelet Count 236 K/UL (150-450) Mean Platelet Volume 6.7 FL (6.5-10.1) Neutrophils (%) (Auto) % (45.0-75.0) Lymphocytes (%) (Auto) % (20.0-45.0) Monocytes (%) (Auto) % (1.0-10.0) Eosinophils (%) (Auto) % (0.0-3.0) Basophils (%) (Auto) % (0.0-2.0) Differential Total Cells Counted 100 Neutrophils % (Manual) 86 % (45-75) H Lymphocytes % (Manual) 6 % (20-45) L Monocytes % (Manual) 5 % (1-10) Eosinophils % (Manual) 3 % (0-3) Basophils % (Manual) 0 % (0-2) Band Neutrophils 0 % (0-8) Platelet Estimate Adequate Platelet Morphology Normal Erythrocyte Sedimentation Rate 48 MM/HR (0-30) H Prothrombin Time 32.6 SEC (9.30-11.50) H Prothromb Time International Ratio 3.3 (0.9-1.1) H Sodium Level 143 MMOL/L (136-145) Potassium Level 3.7 MMOL/L (3.5-5.1) Chloride Level 103 MMOL/L (98-107) Carbon Dioxide Level 39 MMOL/L (21-32) H Anion Gap 1 mmol/L (5-15) L Blood Urea Nitrogen 11 mg/dL (7-18) Creatinine 0.6 MG/DL (0.55-1.30) Estimat Glomerular Filtration Rate mL/min (>60) Glucose Level 126 MG/DL (74-106) H Calcium Level 8.0 MG/DL (8.5-10.1) L Total Bilirubin 0.3 MG/DL (0.2-1.0) Aspartate Amino Transf (AST/SGOT) 17 U/L (15-37) Alanine Aminotransferase (ALT/SGPT) 11 U/L (12-78) L Alkaline Phosphatase 50 U/L (46-116) C-Reactive Protein, Quantitative 36.4 mg/dL (0.00-0.90) H Total Protein 7.2 G/DL (6.4-8.2) Albumin 2.4 G/DL (3.4-5.0) L Globulin 4.8 g/dL Albumin/Globulin Ratio 0.5 (1.0-2.7) L Amylase Level 24 U/L (25-115) L Plan Problems: (1) Acute pancreatitis Assessment & Plan: seen as radiographic finding and clinically symptoms can correlate lipase normal possible resolving trend labs will treat clinically (2) Leukocytosis Assessment & Plan: UTI? colitis/enteritis? on Abx trend labs (3) Intractable abdominal pain Assessment & Plan: possibly related to duodenitis or pancreatitis labs noted CT noted will follow clinically serial exams will start clear liquids advance diet as tolerated bowel care as seems to be constipated thank you Eliel Carlson Jun 23, 2018 11:56
[2018-06-23 12:00] VITALS: BP 135/79
[2018-06-23 16:00] VITALS: BP 136/79
--- NOTE | 2018-06-23 17:02 | Cardiology Report ---
APPROVED REPORT EKG Measurement Heart [id number] Sinus bradycardia with sinus arrhythmia Rightward axis Prolonged QT Abnormal ECG
[2018-06-23] MEDS: Cefepime HCl 1 GM in D5W 55 ML IVPB SCH (17:20)
[2018-06-23 20:00] VITALS: BP 155/82
[2018-06-23] MEDS: Pantoprazole Inj IVP SCH (21:07)
[2018-06-23] MEDS: Atorvastatin 20mg tab ORAL SCH (21:07)
[2018-06-23] MEDS: Donepezil 10mg tab ORAL SCH (21:08)
[2018-06-24] VITALS: BP 124/74
[2018-06-24 04:00] VITALS: BP 136/80
[2018-06-24 07:12] LABS: BASOPHILS % (AUTO) 0.5 % (0.0-2.0); EOSINOPHILS % (AUTO) 2.8 % (0.0-3.0); HEMATOCRIT 38.5 % (37.0-47.0); HEMOGLOBIN 12.7 G/DL (12.0-16.0); LYMPHOCYTES % (AUTO) 8.4 % (20.0-45.0); MEAN CORPUSCULAR VOLUME 90 FL (80-99); MONOCYTES % (AUTO) 7.6 % (1.0-10.0); NEUTROPHILS % (AUTO) 80.8 % (45.0-75.0); PLATELET COUNT 232 K/UL (150-450); RED BLOOD COUNT 4.26 M/UL (4.20-5.40); RED CELL DISTRIBUTION WIDTH 11.7 % (11.6-14.8); WHITE BLOOD COUNT 10.2 K/UL (4.8-10.8)
[2018-06-24 07:37] LABS: INR 3.3 (0.9-1.1)
[2018-06-24 07:44] LABS: ALANINE AMINOTRANSFERASE 13 U/L (12-78); ALBUMIN 2.4 G/DL (3.4-5.0); ALBUMIN/GLOBULIN RATIO 0.5 (1.0-2.7); ALKALINE PHOSPHATASE 48 U/L (46-116); AMYLASE 25 U/L (25-115); ANION GAP 1 mmol/L (5-15); ASPARTATE AMINO TRANSFERASE 15 U/L (15-37); BILIRUBIN,TOTAL 0.2 MG/DL (0.2-1.0); BLOOD UREA NITROGEN 6 mg/dL (7-18); CALCIUM 8.2 MG/DL (8.5-10.1); CARBON DIOXIDE 40 MMOL/L (21-32); CHLORIDE 102 MMOL/L (98-107); CREATININE 0.5 MG/DL (0.55-1.30); POTASSIUM 3.5 MMOL/L (3.5-5.1); SODIUM 143 MMOL/L (136-145)
[2018-06-24 08:00] VITALS: BP 149/69
--- NOTE | 2018-06-24 08:23 | General Progress Note ---
Assessment/Plan Problem List: (1) Acute pancreatitis Assessment & Plan: Lipase 309 CT abd/pelvis reviewed, showing concerns for pancreatitis gen surg recs much appreciated clear liquid diet , advance as tolerated IVF prn antiemetics pain control monitor closely ICD Codes: K85.90 - Acute pancreatitis without necrosis or infection, unspecified SNOMED: 638759375 (2) Intractable nausea and vomiting Assessment & Plan: prn antiemetics due to pancreatitis bowel rest pain control stable ICD Codes: R11.2 - Nausea with vomiting, unspecified SNOMED: 660118273 (3) Intractable abdominal pain Assessment & Plan: pain control due to pancreatitis/duodenitis/severe constipation continue bowel care, having a lot of BMs overnight however abd still distended GI consulted for evaluation as well, may need disimpaction ICD Codes: R10.9 - Unspecified abdominal pain SNOMED: 87518108, 014137015 (4) Duodenitis Assessment & Plan: per ct read cefepime flagyl bcx x 2 sent ICD Codes: K29.80 - Duodenitis without bleeding SNOMED: 51800840 (5) Leukocytosis Assessment & Plan: wbc 14 on admit, now 10.2 not septic criteria abx fluids pain control gen surg consulted ICD Codes: D72.829 - Elevated white blood cell count, unspecified SNOMED: 449383948, 811925707 Qualifiers: Qualified Codes: D72.829 - Elevated white blood cell count, unspecified (6) CAD (coronary artery disease) Assessment & Plan: resume home meds stable ICD Codes: I25.10 - Atherosclerotic heart disease of [place] coronary artery without angina pectoris SNOMED: 27953499 Qualifiers: Qualified Codes: I25.10 - Atherosclerotic heart disease of [place] coronary artery without angina pectoris (7) S/P CABG (coronary artery bypass graft) Assessment & Plan: resume home meds when arrives stable ICD Codes: Z95.1 - Presence of aortocoronary bypass graft SNOMED: 87906792, 376853385, 394208904 (8) Constipation Assessment & Plan: continue with bowel care likely main cause of her sx appreciate surg recs Gi consulted, may need manual disimpaction ICD Codes: K59.00 - Constipation, unspecified SNOMED: 92790694 (9) Weakness generalized Assessment & Plan: is able to ambulate however poor effort discussed with nursing to ambulate patient ICD Codes: R53.1 - Weakness SNOMED: 62539384 Status: unchanged Assessment/Plan ppx: coumadin, scd diet:clear liquid diet as tolerated I have have spent over 49 minutes regarding patient care and counseling and 35 minutes of face to face time Subjective Date patient seen: Jun 24, 2018 Time patient seen: 08:23 Allergies: Coded Allergies: No Known Allergies (Unverified , 06/20/18) Subjective f/u intractable abdominal pain, intractable nausea/vomiting, pancreatitis, duodenitis, constipation. n/v stable still having abdominal distention has been having multiple BMs overnight with laxative/enemas given GI consulted today AM for evaluation, may need manual disimpaction gen surg following patient is in distress due to discomfort from abd distention ROS: 12 point ros reviewed and negative except for the above Objective Last 24 Hour Vital Signs Date Time Temp Pulse Resp B/P (MAP) Pulse Ox O2 Delivery O2 Flow Rate FiO2 06/24/18 05:54 98.2 06/24/18 04:00 98.2 103 18 136/80 (98) 95 06/24/18 00:00 99.4 94 20 124/74 (91) 93 06/23/18 20:01 Room Air Room Air 06/23/18 20:00 99.7 84 20 155/82 (106) 100 06/23/18 16:00 98.4 91 20 136/79 (98) 98 06/23/18 12:00 98.7 100 20 135/79 (97) 98 06/23/18 09:00 Room Air Room Air Intake and Output 06/23/18 06/24/18 18:59 06:59 Intake Total 1635 ml 1240 ml Output Total 504 ml Balance 1635 ml 736 ml Intake Oral 180 ml IV Total 1455 ml 1000 ml Other 240 ml Output Urine Total 500 ml Stool Total 4 ml # Voids 5 # Bowel Movements 3 4 Laboratory Tests 06/23/18 23:00: Stool Occult Blood [Pending] 06/24/18 05:20: White Blood Count 10.2, Red Blood Count 4.26, Hemoglobin 12.7, Hematocrit 38.5, Mean Corpuscular Volume 90, Mean Corpuscular Hemoglobin 29.7, Mean Corpuscular Hemoglobin Concent 32.9, Red Cell Distribution Width 11.7, Platelet Count 232, Mean Platelet Volume 6.8, Neutrophils (%) (Auto) 80.8H, Lymphocytes (%) (Auto) 8.4L, Monocytes (%) (Auto) 7.6, Eosinophils (%) (Auto) 2.8, Basophils (%) (Auto ) 0.5, Erythrocyte Sedimentation Rate [Pending], Prothrombin Time 32.3H, Prothromb Time International Ratio 3.3H, Sodium Level 143, Potassium Level 3.5, Chloride Level 102, Carbon Dioxide Level 40H, Anion Gap 1L, Blood Urea Nitrogen 6L, Creatinine 0.5L, Estimat Glomerular Filtration Rate , Glucose Level 116H, Calcium Level 8.2L, Total Bilirubin 0.2, Aspartate Amino Transf (AST/SGOT) 15, Alanine Aminotransferase (ALT/SGPT) 13, Alkaline Phosphatase 48, C-Reactive Protein, Quantitative 22.5H, Total Protein 7.1, Albumin 2.4L, Globulin 4.7, Albumin/Globulin Ratio 0.5L, Amylase Level 25, Lipase 117 Height (Feet): 5 Height (Inches): 6.00 Weight (Pounds): 168 General Appearance: moderate distress EENT: PERRL/EOMI, normal ENT inspection, TMs normal, pharynx normal Neck: non-tender, normal alignment, supple, normal inspection Cardiovascular: normal peripheral pulses, normal rate, regular rhythm Respiratory/Chest: chest wall non-tender, lungs clear, normal breath sounds, no respiratory distress, no accessory muscle use Abdomen: normal bowel sounds, non tender, distended, tender Extremities: normal range of motion, non-tender, normal inspection 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
[2018-06-24] MEDS: Aspirin Baby 81mg ORAL SCH (08:51)
[2018-06-24] MEDS: Docusate 100mg cap ORAL SCH ×4 (08:51→17:33)
[2018-06-24] MEDS: Furosemide 40mg tab ORAL SCH (08:51)
[2018-06-24] MEDS: Amiodarone 200mg tab ORAL SCH (08:51)
[2018-06-24] MEDS: rOPINIRole 0.25mg tab ORAL SCH ×3 (08:51→17:18)
[2018-06-24] MEDS: ETHINYL ESTRADIOL ORAL SCH (08:52)
[2018-06-24] MEDS: Pantoprazole Inj IVP SCH ×2 (08:52→22:03)
[2018-06-24] MEDS: NORETHINDRONE ACETATE ORAL SCH (08:52)
[2018-06-24] MEDS: OMEPRAZOLE 20MG ORAL SCH (08:52)
[2018-06-24] MEDS ORDERED: Isovue-300 100ml vial INJ PRN ×2 (11:00→11:45)
--- NOTE | 2018-06-24 11:12 | GI Initial Consult Note ---
History of Present Illness General Date patient seen: Jun 24, 2018 Time patient seen: 11:39 Reason for Hospitalization: Abdominal Pain Referring physician: [place] Reason for Consultation: abdominal pain Present Illness HPI Patient presents with severe abdominal pain. The began earlier this morning. She feels it across her lower abdomen. She states that she feels that her colon is going to explode. She moved her bowels last night without difficulty. She feels nausea without vomiting. There is no blood in the stool. She denies any dysuria. She's never had this pain before. The pain is constant and nonradiating. The pain is rated 10/10. No medicines were taken. No fevers. No URI sy, chest pain, cough, dyspnea, rashes, headache, joint pain. The pain makes her feel anxious. She feels like she needs to pass gas. H/O valve surgery (details unclear), not on anticoagulation. No DM, HTN. GI consulted for abdominal distention. Pt seen, awake A&O NAD c/o of abdominal distention. Abdomen assessed noted with bloating and mild distention, tympanic , tenderness with guarding. The patient reports she' had a normal bowel movement last night. CTAP shows 18 x 17 mm cyst within the uncinate process of the pancreas, otherwise negative. KUB and abdominal US also unremarkable. Labs reviewed; no anemia, no leukocytosis, no transaminitis. Denies any history of endoscopy / colonoscopy. Home Meds Reported Medications Norethind Ac/Ethinyl Estradiol (FEMHRT 0.5 MG-2.5 MCG TABLET) 1 Each Tablet, 1 EACH PO DAILY, TAB 06/20/18 Atorvastatin Calcium* (ATORVASTATIN CALCIUM*) 20 Mg Tablet, 20 MG ORAL BEDTIME, TAB 06/20/18 Warfarin Sod* (WARFARIN SOD*) 3 Mg Tablet, 3 MG ORAL DAILY, TAB 06/20/18 Omeprazole (OMEPRAZOLE) 20 Mg Capsule.dr, 20 MG ORAL DAILY, CAP 06/20/18 Diltiazem Hcl* (CARDIZEM CD*) 120 Mg Cap.er.24h, 120 MG ORAL DAILY, CAP Do not open, chew or crush capsule; swallow whole 06/20/18 Ergocalciferol (Vitamin D2)* (VITAMIN D*) 50,000 Unit Capsule, 77209 UNIT ORAL ONCE A WEEK, CAP 06/20/18 Donepezil Hcl* (DONEPEZIL HCL*) 10 Mg Tab.rapdis, 10 MG ORAL DAILY, TAB 06/20/18 Furosemide* (LASIX*) 40 Mg Tablet, 40 MG ORAL DAILY, TAB 06/20/18 Amiodarone Hcl* (AMIODARONE HCL*) 400 Mg Tablet, 200 MG ORAL DAILY, TAB 06/20/18 Ropinirole Hcl* (ROPINIROLE HCL*) 0.25 Mg Tablet, 0.25 MG PO TID, TAB 06/20/18 Unable to Obtain Medications (UNABLE TO OBTAIN MEDS) 1 Ea Ea 06/20/18 Med list reviewed/reconciled: Yes Allergies: Coded Allergies: No Known Allergies (Unverified , 06/20/18) Patient History History Provided By: Patient, Family Member PMH Narrative Past Medical History: see triage record Past Surgical History: other - valve surgery Social History: Denies: smoking, alcohol use, drug use Social History Narrative with sig other Last Menstrual Period: 4 decades ago Now: No Reviewed Nursing Documentation: PMH: Agreed; PSxH: Agreed Social History: Denies: smoking, alcohol use, drug use, other Review of Systems All Other Systems: negative except mentioned in HPI Physical Exam Vital Signs Date Time Temp Pulse Resp B/P (MAP) Pulse Ox O2 Delivery O2 Flow Rate FiO2 06/20/18 07:18 97.5 79 14 99/56 100 Room Air 06/20/18 21:28 2.0 06/21/18 00:10 28 Sp02 EP Interpretation: reviewed, normal Labs Laboratory Tests Test 06/23/18 23:00 06/24/18 05:20 Stool Occult Blood Negative (NEGATIVE) White Blood Count 10.2 K/UL (4.8-10.8) Red Blood Count 4.26 M/UL (4.20-5.40) Hemoglobin 12.7 G/DL (12.0-16.0) Hematocrit 38.5 % (37.0-47.0) Mean Corpuscular Volume 90 FL (80-99) Mean Corpuscular Hemoglobin 29.7 PG (27.0-31.0) Mean Corpuscular Hemoglobin Concent 32.9 G/DL (32.0-36.0) Red Cell Distribution Width 11.7 % (11.6-14.8) Platelet Count 232 K/UL (150-450) Mean Platelet Volume 6.8 FL (6.5-10.1) Neutrophils (%) (Auto) 80.8 % (45.0-75.0) H Lymphocytes (%) (Auto) 8.4 % (20.0-45.0) L Monocytes (%) (Auto) 7.6 % (1.0-10.0) Eosinophils (%) (Auto) 2.8 % (0.0-3.0) Basophils (%) (Auto) 0.5 % (0.0-2.0) Erythrocyte Sedimentation Rate 55 MM/HR (0-30) H Prothrombin Time 32.3 SEC (9.30-11.50) H Prothromb Time International Ratio 3.3 (0.9-1.1) H Sodium Level 143 MMOL/L (136-145) Potassium Level 3.5 MMOL/L (3.5-5.1) Chloride Level 102 MMOL/L (98-107) Carbon Dioxide Level 40 MMOL/L (21-32) H Anion Gap 1 mmol/L (5-15) L Blood Urea Nitrogen 6 mg/dL (7-18) L Creatinine 0.5 MG/DL (0.55-1.30) L Estimat Glomerular Filtration Rate mL/min (>60) Glucose Level 116 MG/DL (74-106) H Calcium Level 8.2 MG/DL (8.5-10.1) L Total Bilirubin 0.2 MG/DL (0.2-1.0) Aspartate Amino Transf (AST/SGOT) 15 U/L (15-37) Alanine Aminotransferase (ALT/SGPT) 13 U/L (12-78) Alkaline Phosphatase 48 U/L (46-116) C-Reactive Protein, Quantitative 22.5 mg/dL (0.00-0.90) H Total Protein 7.1 G/DL (6.4-8.2) Albumin 2.4 G/DL (3.4-5.0) L Globulin 4.7 g/dL Albumin/Globulin Ratio 0.5 (1.0-2.7) L Amylase Level 25 U/L (25-115) Lipase 117 U/L (73-393) General Appearance: well appearing, no apparent distress, alert Head: normocephalic EENT: PERRL/EOMI, normal ENT inspection Neck: supple Respiratory: normal breath sounds, no respiratory distress Cardiovascular: normal rate Gastrointestinal: normal inspection, non tender, soft, normal bowel sounds, non -distended, distended Rectal: deferred Genitourinary: no CVA tenderness Musculoskeletal: normal inspection, back normal Neurologic: normal inspection, alert, oriented x3, responsive Psychiatric: normal inspection, judgement/insight normal, memory normal Skin: normal inspection, normal color, no rash, warm/dry, palpation normal, well hydrated Lymphatic: normal inspection, no adenopathy Current Medications Current Medications Medications (Trade) Dose Ordered Sig/Bettina Route PRN Reason Start Time Stop Time Status Last Admin Dose Admin Acetaminophen (Tylenol) 650 mg Q6H PRN ORAL Mild Pain/Temp > 100.5 06/21/18 20:00 07/21/18 19:59 06/24/18 05:25 Amiodarone HCl (Cordarone) 400 mg DAILY ORAL 06/21/18 09:00 07/21/18 08:59 06/24/18 08:51 Aspirin (ASA) 81 mg DAILY ORAL 06/23/18 09:00 07/20/18 08:59 06/24/18 08:51 Atorvastatin Calcium (Lipitor) 20 mg BEDTIME ORAL 06/20/18 21:00 07/20/18 20:59 06/23/18 21:07 Barium Sulfate (Readi-Cat 2) 450 ml NOW PRN ORAL Radiology Procedure 06/24/18 11:00 06/26/18 10:59 Bisacodyl (Dulcolax) 10 mg DAILYPRN PRN RECTAL Constipation 06/23/18 07:45 07/23/18 07:44 06/23/18 17:16 Cefepime HCl 1 gm/ Dextrose 55 ml @ 110 mls/hr Q24H IVPB 06/20/18 18:00 06/27/18 17:59 06/23/18 17:20 Docusate Sodium (Colace) 100 mg THREE TIMES A DAY ORAL 06/21/18 13:00 07/21/18 12:59 06/23/18 17:19 Donepezil HCl (Aricept) 10 mg QHS ORAL 06/20/18 21:00 07/20/18 20:59 06/23/18 21:08 Ergocalciferol (Drisdol) 50,000 intlu ONCE A WEEK ORAL 06/20/18 18:00 07/20/18 17:59 06/20/18 18:10 Furosemide (Lasix) 40 mg DAILY ORAL 06/21/18 09:00 07/21/18 08:59 06/24/18 08:51 Iopamidol (Isovue-300 100ml) 100 ml NOW PRN INJ Radiology Procedure 06/24/18 11:00 06/26/18 10:59 Metronidazole 100 ml @ 100 mls/hr Q8HR IVPB 06/20/18 14:00 06/27/18 13:59 06/24/18 05:04 Ondansetron HCl (Zofran) 4 mg Q6H PRN IVP Nausea & Vomiting 06/20/18 09:00 07/20/18 08:59 Pantoprazole (Protonix) 40 mg EVERY 12 HOURS IVP 06/23/18 21:00 07/23/18 20:59 06/24/18 08:52 Patient Own Medication (Patient's Own Med) 1 ea DAILY ORAL 06/21/18 09:00 07/21/18 08:59 06/24/18 08:52 Patient Own Medication (Patient's Own Med) 1 ea DAILY ORAL 06/21/18 09:00 07/21/18 08:59 06/24/18 08:52 Ropinirole HCl (Requip) 0.25 mg THREE TIMES A DAY ORAL 06/20/18 18:00 07/20/18 17:59 06/24/18 08:51 Senna/Docusate Sodium (Jania-Colace) 1 tab BID PRN ORAL Constipation 06/21/18 10:00 07/21/18 09:59 Sodium Chloride 1,000 ml @ 100 mls/hr Q10H IV 06/20/18 08:45 07/20/18 08:44 06/24/18 04:13 Warfarin Sodium (Coumadin per pharmacy) 1 ea DAILY PRN MISC Per rx protocol 06/20/18 16:30 07/20/18 16:29 Warfarin Sodium (Coumadin) 0.5 mg ONCE ORAL 06/24/18 17:00 06/24/18 19:00 GI: Plan Problems: (1) Abdominal bloating (2) Ileus (3) Constipation (4) Abdominal pain (5) Intractable nausea and vomiting (6) Acute pancreatitis Plan abdominal distention most likely from post pancreatic ileus fu CT AP with oral contrast IV hydration encourage turning q2 hours and ambulation as tolerated zofran prn fu labs, CA19-9, lipid panel needs outpatient EGD/colonoscopy screening, EUS to evaluate pancreatic cyst. Discussed with Dr. Garcia. Thank you for this patient referral, we will follow. The patient was seen and examined at bedside and all new and available data was reviewed in the patients chart. I agree with the above findings, impression and plan. (Patient seen earlier today. Signature stamp does not reflect patient encounter time.). - MD Moira Issa,[facility] THEATRICAL PERFORMER Jun 24, 2018 11:12
[2018-06-24] MEDS ORDERED: Simethicone 80mg tab ORAL SCH (11:15)
[2018-06-24 12:00] VITALS: BP 134/77
[2018-06-24] MEDS ORDERED: Simethicone 80mg tab ORAL PRN (13:00)
[2018-06-24 16:00] VITALS: BP 140/79
--- NOTE | 2018-06-24 16:15 | Diagnostic Imaging Report ---
Clinical Indication: Intractable abdominal pain, acute pancreatitis, leukocytosis Technique: Patient given oral contrast. IV administration nonionic contrast. Venous phase spiral acquisition obtained through the abdomen and pelvis. Multiplanar reconstructions were generated. Total dose length product 863.65 mGycm. CTDIvol(s) 17.73 mGy. Dose reduction achieved using automated exposure control Comparison: 06/20/2018 Findings: There is enlargement of the pancreatic head and uncinate process. Multiple cysts are seen within the uncinate, measuring up to 2 cm in diameter. There is extensive infiltration of the fat of the mesenteric root inferior to the pancreas and ligament of [place]. Prominent lymph nodes are seen within the mesentery this level. These appear somewhat larger than on the prior exam, currently measuring up to 11 mm long axis dimension. The pancreas enhances normally. The amount of infiltration of the fat appears slightly increased, with both increased attenuation and slightly greater inferior extent of the phlegmon. No new fluid collections are demonstrated. The gallbladder contains a small gallbladder neck stone, as previously. There is mild ectasia of the extrahepatic bile ducts, but no definite downstream obstructive process is demonstrated. The liver demonstrates a few subcentimeter low-attenuation lesions which are too small to characterize. The spleen, adrenals, kidneys are unremarkable. Some inflammatory change and fluid is seen surrounding the uterus and bilateral ovaries. There is suggestion of slight wall thickening of the distal rectum. There is circumferential edema of the posterior pelvic fat which is a new finding since the prior study. A small amount of fluid is seen in the mesenteric root immediately anterior and superior to the urinary bladder. There is equivocal mild wall thickening of the distal rectum. There is colonic diverticulosis. No evidence of diverticulitis. Normal appendix. Contrast is seen throughout the entirety of the small bowel and the colon. No small bowel distention or small bowel wall thickening. No free intraperitoneal gas. The distal esophagus demonstrates small sliding type hiatal hernia. The remainder the stomach is unremarkable. The duodenum demonstrates slight wall thickening which is probably reactive due to the surrounding peripancreatic inflammation and appears similar to the previous exam. The included lung bases demonstrate interim development of moderate to large bilateral pleural effusions. There are compressive atelectatic changes of the posterior lower lobes bilaterally. There is on the lung window images, on the highest cut a questionable 12 mm masslike lesion. This is not seen previously but may have been excluded from the prior imaging volume. The bones demonstrate degenerative spondylosis changes. A tricuspid valve prosthesis is demonstrated, not included on the prior images. Impression: Findings compatible with acute pancreatitis of the pancreatic head and uncinate, also previously reported. There is slight progression of phlegmon along the adjacent mesenteric root. Extensive disease otherwise similar to previous exam. No evidence of necrosis or new peripancreatic fluid collection demonstrated Enlarged lymph nodes in the mesenteric root near its inflammation, slightly larger than on the prior study. Presumed reactive secondary to the pancreatic inflammation Small cystic lesions versus multilobulated single lesion within the in segment 8 process of the pancreas. This may reflect an old pseudocyst or a branch duct intraductal papillary mucinous neoplasm. Further follow-up imaging recommended when the acute disease subsides. Inflammatory changes in the pelvis with stranding of the pelvic fat. These are nonspecific, may be related to the pancreatic inflammation (although somewhat remote from such),, or could indicate pelvic inflammatory changes either of the uterus/ovaries or rectum Mild distal rectal wall thickening, may be artifact of under distention, but could indicate proctitis and possibly explain the above findings Cholelithiasis, also previously described Subcentimeter low-attenuation liver lesions, to small to characterize, most likely benign simple cysts or bile hamartomas. No further follow-up necessary Moderate to large bilateral pleural effusions, new since the previous exam. Questionable 12 mm masslike lesion, seen on the highest cut of the lung window images on the right. Consider follow-up chest CT for further evaluation Other findings as noted, including degenerative spondylosis, tricuspid valve prosthesis The CT scanner at [facility] is accredited by the [employer] and the scans are performed using protocols designed to limit radiation exposure to as low as reasonably achievable to attain images of sufficient resolution adequate for diagnostic evaluation.
[2018-06-24] MEDS ORDERED: Warfarin Sodium 1mg ORAL SCH (17:00)
[2018-06-24] MEDS: Cefepime HCl 1 GM in D5W 55 ML IVPB SCH (17:18)
--- NOTE | 2018-06-24 17:50 | General Surgery Progress Note ---
General Surgery-Progress Note Subjective Symptoms: improved, tolerating diet, passing flatus, BM Additional Comments states abdominal pain present but improving. feels bloated. no n/v/f/c. tolerating full liquids without pain. leukocytosis resolved. CT noted Objective Last 24 Hour Vital Signs Date Time Temp Pulse Resp B/P (MAP) Pulse Ox O2 Delivery O2 Flow Rate FiO2 06/24/18 16:00 99.0 75 20 140/79 (99) 99 06/24/18 12:00 98.7 84 20 134/77 (96) 99 06/24/18 09:00 Room Air Room Air 06/24/18 08:00 97.7 105 20 149/69 (95) 99 06/24/18 05:54 98.2 06/24/18 04:00 98.2 103 18 136/80 (98) 95 06/24/18 00:00 99.4 94 20 124/74 (91) 93 06/23/18 20:01 Room Air Room Air 06/23/18 20:00 99.7 84 20 155/82 (106) 100 I&O Intake and Output 06/23/18 06/24/18 19:00 07:00 Intake Total 1735 ml 1240 ml Output Total 504 ml Balance 1735 ml 736 ml Intake Oral 180 ml IV Total 1555 ml 1000 ml Other 240 ml Output Urine Total 500 ml Stool Total 4 ml # Voids 5 # Bowel Movements 3 4 Drains: none Cardiovascular: RSR Respiratory: clear Abdomen: soft, distended, non-tender, present bowel sounds Extremities: no tenderness, no cyanosis Laboratory Tests Test 06/23/18 23:00 06/24/18 05:20 Stool Occult Blood Negative (NEGATIVE) White Blood Count 10.2 K/UL (4.8-10.8) Red Blood Count 4.26 M/UL (4.20-5.40) Hemoglobin 12.7 G/DL (12.0-16.0) Hematocrit 38.5 % (37.0-47.0) Mean Corpuscular Volume 90 FL (80-99) Mean Corpuscular Hemoglobin 29.7 PG (27.0-31.0) Mean Corpuscular Hemoglobin Concent 32.9 G/DL (32.0-36.0) Red Cell Distribution Width 11.7 % (11.6-14.8) Platelet Count 232 K/UL (150-450) Mean Platelet Volume 6.8 FL (6.5-10.1) Neutrophils (%) (Auto) 80.8 % (45.0-75.0) H Lymphocytes (%) (Auto) 8.4 % (20.0-45.0) L Monocytes (%) (Auto) 7.6 % (1.0-10.0) Eosinophils (%) (Auto) 2.8 % (0.0-3.0) Basophils (%) (Auto) 0.5 % (0.0-2.0) Erythrocyte Sedimentation Rate 55 MM/HR (0-30) H Prothrombin Time 32.3 SEC (9.30-11.50) H Prothromb Time International Ratio 3.3 (0.9-1.1) H Sodium Level 143 MMOL/L (136-145) Potassium Level 3.5 MMOL/L (3.5-5.1) Chloride Level 102 MMOL/L (98-107) Carbon Dioxide Level 40 MMOL/L (21-32) H Anion Gap 1 mmol/L (5-15) L Blood Urea Nitrogen 6 mg/dL (7-18) L Creatinine 0.5 MG/DL (0.55-1.30) L Estimat Glomerular Filtration Rate mL/min (>60) Glucose Level 116 MG/DL (74-106) H Calcium Level 8.2 MG/DL (8.5-10.1) L Total Bilirubin 0.2 MG/DL (0.2-1.0) Aspartate Amino Transf (AST/SGOT) 15 U/L (15-37) Alanine Aminotransferase (ALT/SGPT) 13 U/L (12-78) Alkaline Phosphatase 48 U/L (46-116) C-Reactive Protein, Quantitative 22.5 mg/dL (0.00-0.90) H Total Protein 7.1 G/DL (6.4-8.2) Albumin 2.4 G/DL (3.4-5.0) L Globulin 4.7 g/dL Albumin/Globulin Ratio 0.5 (1.0-2.7) L Amylase Level 25 U/L (25-115) Lipase 117 U/L (73-393) Plan Problems: (1) Acute pancreatitis Assessment & Plan: seen as radiographic finding and clinically symptoms can correlate lipase normal possible resolving trend labs will treat clinically Ct noted. worsening phlegmon/edema clinically improving and tolerating diet cont current care. if condition changes need to manage. not ready for d/c ct impressive (2) Leukocytosis Assessment & Plan: UTI? colitis/enteritis? pancreatitis resolved on Abx trend labs (3) Intractable abdominal pain Assessment & Plan: possibly related to duodenitis or pancreatitis labs noted CT noted will follow clinically serial exams will start clear liquids advance diet as tolerated bowel care as seems to be constipated thank you Eliel Carlson Jun 24, 2018 17:50
[2018-06-24 20:00] VITALS: BP 130/79
[2018-06-24] MEDS: Hydromorphone 0.5mg/0.5ml inj IVP PRN (22:03)
[2018-06-24] MEDS: Donepezil 10mg tab ORAL SCH (22:03)
[2018-06-24] MEDS: Atorvastatin 20mg tab ORAL SCH (22:03)
[2018-06-25] VITALS: BP 122/73
[2018-06-25 04:00] VITALS: BP 153/92
[2018-06-25] MEDS: Hydromorphone 0.5mg/0.5ml inj IVP PRN (06:38)
[2018-06-25 08:00] VITALS: BP 138/84
[2018-06-25] MEDS: Aspirin Baby 81mg ORAL SCH (08:56)
[2018-06-25] MEDS: Pantoprazole Inj IVP SCH ×2 (08:56→21:18)
[2018-06-25] MEDS: Docusate 100mg cap ORAL SCH ×3 (08:57→18:12)
[2018-06-25] MEDS: Amiodarone 200mg tab ORAL SCH (08:57)
[2018-06-25] MEDS: rOPINIRole 0.25mg tab ORAL SCH ×3 (08:57→18:12)
[2018-06-25] MEDS: Furosemide 40mg tab ORAL SCH (08:57)
[2018-06-25] MEDS: OMEPRAZOLE 20MG ORAL SCH (08:58)
[2018-06-25] MEDS: NORETHINDRONE ACETATE ORAL SCH (08:58)
[2018-06-25] MEDS: ETHINYL ESTRADIOL ORAL SCH (08:58)
[2018-06-25 09:14] LABS: INR 2.6 (0.9-1.1)
[2018-06-25 09:39] LABS: BASOPHILS % (AUTO) 0.7 % (0.0-2.0); EOSINOPHILS % (AUTO) 3.2 % (0.0-3.0); HEMATOCRIT 40.1 % (37.0-47.0); HEMOGLOBIN 13.1 G/DL (12.0-16.0); LYMPHOCYTES % (AUTO) 8.6 % (20.0-45.0); MEAN CORPUSCULAR VOLUME 91 FL (80-99); MONOCYTES % (AUTO) 7.4 % (1.0-10.0); NEUTROPHILS % (AUTO) 80.1 % (45.0-75.0); PLATELET COUNT 267 K/UL (150-450); RED BLOOD COUNT 4.42 M/UL (4.20-5.40); RED CELL DISTRIBUTION WIDTH 11.7 % (11.6-14.8); WHITE BLOOD COUNT 10.1 K/UL (4.8-10.8)
[2018-06-25 09:49] LABS: ANION GAP 5 mmol/L (5-15); BLOOD UREA NITROGEN 8 mg/dL (7-18); CALCIUM 8.6 MG/DL (8.5-10.1); CARBON DIOXIDE 37 MMOL/L (21-32); CHLORIDE 101 MMOL/L (98-107); CHOLESTEROL 109 MG/DL (< 200); CREATININE 0.5 MG/DL (0.55-1.30); HDL CHOLESTEROL 51 MG/DL (40-60); POTASSIUM 3.6 MMOL/L (3.5-5.1); SODIUM 143 MMOL/L (136-145); TRIGLYCERIDES 57 MG/DL (30-150)
--- NOTE | 2018-06-25 11:40 | General Progress Note ---
Assessment/Plan Problem List: (1) Acute pancreatitis Assessment & Plan: Lipase 309 CT abd/pelvis reviewed, showing concerns for pancreatitis gen surg recs much appreciated ADAT, will try regular diet IVF prn antiemetics pain control monitor closely repeat ct showing fat stranding with pseudocyst ICD Codes: K85.90 - Acute pancreatitis without necrosis or infection, unspecified SNOMED: 639561408 (2) Intractable nausea and vomiting Assessment & Plan: prn antiemetics due to pancreatitis bowel rest pain control stable ICD Codes: R11.2 - Nausea with vomiting, unspecified SNOMED: 895449493 (3) Intractable abdominal pain Assessment & Plan: pain control due to pancreatitis/duodenitis/severe constipation continue bowel care, having a lot of BMs overnight however abd still distended GI consulted for evaluation as well, may need disimpaction ICD Codes: R10.9 - Unspecified abdominal pain SNOMED: 20518376, 415901437 (4) Duodenitis Assessment & Plan: per ct read cefepime flagyl bcx x 2 sent ICD Codes: K29.80 - Duodenitis without bleeding SNOMED: 84256967 (5) Leukocytosis Assessment & Plan: wbc 14 on admit, now 10.2 not septic criteria abx fluids pain control gen surg consulted ICD Codes: D72.829 - Elevated white blood cell count, unspecified SNOMED: 039008990, 637182783 Qualifiers: Qualified Codes: D72.829 - Elevated white blood cell count, unspecified (6) CAD (coronary artery disease) Assessment & Plan: resume home meds stable ICD Codes: I25.10 - Atherosclerotic heart disease of [place] coronary artery without angina pectoris SNOMED: 94994937 Qualifiers: Qualified Codes: I25.10 - Atherosclerotic heart disease of [place] coronary artery without angina pectoris (7) S/P CABG (coronary artery bypass graft) Assessment & Plan: resume home meds when arrives stable ICD Codes: Z95.1 - Presence of aortocoronary bypass graft SNOMED: 63733235, 320214644, 412228568 (8) Constipation Assessment & Plan: continue with bowel care likely main cause of her sx appreciate surg recs Gi consulted, may need manual disimpaction ICD Codes: K59.00 - Constipation, unspecified SNOMED: 36830006 (9) Weakness generalized Assessment & Plan: is able to ambulate however poor effort discussed with nursing to ambulate patient ICD Codes: R53.1 - Weakness SNOMED: 54770834 (10) Failure to thrive Assessment & Plan: advance diet as tolerated will try to give regular diet prn antiemetics pain control appreciate gen surg recs 2/2 severe acute pancreatitis with pseudocyst noted on ct. SNOMED: 35285570 (11) Pseudocyst of pancreas Assessment & Plan: will need outpt f/u rrepeat ct in 6 weeks outpt ICD Codes: K86.3 - Pseudocyst of pancreas SNOMED: 512875354 Status: stable Assessment/Plan ppx: coumadin, scd diet:clear liquid diet as tolerated I have have spent over 44 minutes regarding patient care and counseling and 35 minutes of face to face time patient's case has been complicated by acute severe pancreatitis, repeat ct scan still showing inflammatory pancreatic changes along with pseudocyst will need outpt repeat ct scan in 6 weeks Subjective Date patient seen: Jun 25, 2018 Time patient seen: 11:36 Allergies: Coded Allergies: No Known Allergies (Unverified , 06/20/18) Subjective f/u intractable abdominal pain, intractable nausea/vomiting, pancreatitis, duodenitis, constipation. n/v improving a bit still having abdominal pain, severe difficult to tolerate diet discussed case with gen surg, this is acute severe pancreatitis patient also noted to have pseudocyst on ct will need to continue pain control ROS: 12 point ros reviewed and negative except for the above Objective Last 24 Hour Vital Signs Date Time Temp Pulse Resp B/P (MAP) Pulse Ox O2 Delivery O2 Flow Rate FiO2 06/25/18 09:00 Room Air Room Air 06/25/18 08:00 97.9 116 20 138/84 (102) 95 06/25/18 04:00 97.4 100 20 153/92 (112) 93 06/25/18 00:00 96.6 94 20 122/73 (89) 96 06/24/18 21:00 Room Air Room Air 06/24/18 20:00 97.9 84 20 130/79 (96) 100 06/24/18 16:00 99.0 75 20 140/79 (99) 99 06/24/18 12:00 98.7 84 20 134/77 (96) 99 Intake and Output 06/24/18 06/25/18 18:59 06:59 Intake Total 835 ml 1120 ml Output Total 2 ml Balance 833 ml 1120 ml Intake Oral 480 ml 120 ml IV Total 355 ml 1000 ml Output Urine Total 2 ml # Voids 4 3 # Bowel Movements 3 Laboratory Tests 06/25/18 06:35: White Blood Count 10.1, Red Blood Count 4.42, Hemoglobin 13.1, Hematocrit 40.1, Mean Corpuscular Volume 91, Mean Corpuscular Hemoglobin 29.7, Mean Corpuscular Hemoglobin Concent 32.7, Red Cell Distribution Width 11.7, Platelet Count 267, Mean Platelet Volume 6.0L, Neutrophils (%) (Auto) 80.1H, Lymphocytes (%) (Auto) 8.6L, Monocytes (%) (Auto) 7.4, Eosinophils (%) (Auto) 3.2H, Basophils (%) (Auto ) 0.7, Prothrombin Time 26.5H, Prothromb Time International Ratio 2.6H, Sodium Level 143, Potassium Level 3.6, Chloride Level 101, Carbon Dioxide Level 37H, Anion Gap 5, Blood Urea Nitrogen 8, Creatinine 0.5L, Estimat Glomerular Filtration Rate , Glucose Level 115H, Calcium Level 8.6, Triglycerides Level 57 , Cholesterol Level 109, LDL Cholesterol 42, HDL Cholesterol 51, Cholesterol/ HDL Ratio 2.1L, CA 19-9 Antigen [Pending] Height (Feet): 5 Height (Inches): 6.00 Weight (Pounds): 168 General Appearance: no apparent distress, alert EENT: PERRL/EOMI, normal ENT inspection Neck: non-tender, normal alignment, supple Cardiovascular: normal peripheral pulses, normal rate, regular rhythm Respiratory/Chest: chest wall non-tender, lungs clear Abdomen: normal bowel sounds, non tender, soft, no organomegaly, no mass Extremities: normal range of motion, non-tender, normal inspection, no calf tenderness 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
[2018-06-25] MEDS ORDERED: Fleet's Enema 133ml RECTAL PRN (11:45)
[2018-06-25 12:00] VITALS: BP 155/89
--- NOTE | 2018-06-25 12:34 | GI Progress Note ---
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 - Pseudocyst of pancreas SNOMED: 351772057 (2) Abdominal bloating ICD Codes: R14.0 - Abdominal distension (gaseous) SNOMED: 778126479 (3) Ileus ICD Codes: K56.7 - Ileus, unspecified SNOMED: 087748917 (4) Constipation ICD Codes: K59.00 - Constipation, unspecified SNOMED: 54898479 (5) Abdominal pain ICD Codes: R10.9 - Unspecified abdominal pain SNOMED: 29247839 Qualifiers: Qualified Codes: R10.84 - Generalized abdominal pain (6) Acute pancreatitis ICD Codes: K85.90 - Acute pancreatitis without necrosis or infection, unspecified SNOMED: 697160671 Status: progressing Status Narrative Discussed with Dr. Garcia. Assessment/Plan CT AP reviewed >> Findings compatible with acute pancreatitis of the pancreatic head and uncinate, also previously reported. No evidence of necrosis or new peripancreatic fluid collection demonstrated. abdominal distention most likely due to pancreatitis adv diet as tolerated IV hydration encourage turning q2 hours and ambulation as tolerated zofran prn fu labs, CA19-9, lipid panel needs outpatient EGD/colonoscopy screening, EUS to evaluate pancreatic cyst. The patient was seen and examined at bedside and all new and available data was reviewed in the patients chart. I agree with the above findings, impression and plan. (Patient seen earlier today. Signature stamp does not reflect patient encounter time.). - Heath Garcia MD Subjective Gastrointestinal/Abdominal: Reports: abdomen distended, abdominal pain Subjective abdominal bloating Objective Last 24 Hour Vital Signs Date Time Temp Pulse Resp B/P (MAP) Pulse Ox O2 Delivery O2 Flow Rate FiO2 06/25/18 12:00 97.7 95 20 155/89 (111) 95 06/25/18 09:00 Room Air Room Air 06/25/18 08:00 97.9 116 20 138/84 (102) 95 06/25/18 04:00 97.4 100 20 153/92 (112) 93 06/25/18 00:00 96.6 94 20 122/73 (89) 96 06/24/18 21:00 Room Air Room Air 06/24/18 20:00 97.9 84 20 130/79 (96) 100 06/24/18 16:00 99.0 75 20 140/79 (99) 99 Intake and Output 06/24/18 06/25/18 18:59 06:59 Intake Total 835 ml 1120 ml Output Total 2 ml Balance 833 ml 1120 ml Intake Oral 480 ml 120 ml IV Total 355 ml 1000 ml Output Urine Total 2 ml # Voids 4 3 # Bowel Movements 3 Laboratory Tests Test 06/25/18 06:35 White Blood Count 10.1 K/UL (4.8-10.8) Red Blood Count 4.42 M/UL (4.20-5.40) Hemoglobin 13.1 G/DL (12.0-16.0) Hematocrit 40.1 % (37.0-47.0) Mean Corpuscular Volume 91 FL (80-99) Mean Corpuscular Hemoglobin 29.7 PG (27.0-31.0) Mean Corpuscular Hemoglobin Concent 32.7 G/DL (32.0-36.0) Red Cell Distribution Width 11.7 % (11.6-14.8) Platelet Count 267 K/UL (150-450) Mean Platelet Volume 6.0 FL (6.5-10.1) L Neutrophils (%) (Auto) 80.1 % (45.0-75.0) H Lymphocytes (%) (Auto) 8.6 % (20.0-45.0) L Monocytes (%) (Auto) 7.4 % (1.0-10.0) Eosinophils (%) (Auto) 3.2 % (0.0-3.0) H Basophils (%) (Auto) 0.7 % (0.0-2.0) Prothrombin Time 26.5 SEC (9.30-11.50) H Prothromb Time International Ratio 2.6 (0.9-1.1) H Sodium Level 143 MMOL/L (136-145) Potassium Level 3.6 MMOL/L (3.5-5.1) Chloride Level 101 MMOL/L (98-107) Carbon Dioxide Level 37 MMOL/L (21-32) H Anion Gap 5 mmol/L (5-15) Blood Urea Nitrogen 8 mg/dL (7-18) Creatinine 0.5 MG/DL (0.55-1.30) L Estimat Glomerular Filtration Rate mL/min (>60) Glucose Level 115 MG/DL (74-106) H Calcium Level 8.6 MG/DL (8.5-10.1) Triglycerides Level 57 MG/DL (30-150) Cholesterol Level 109 MG/DL (< 200) LDL Cholesterol 42 mg/dL (<100) HDL Cholesterol 51 MG/DL (40-60) Cholesterol/HDL Ratio 2.1 (3.3-4.4) L CA 19-9 Antigen Pending Height (Feet): 5 Height (Inches): 6.00 Weight (Pounds): 168 General Appearance: WD/WN, no apparent distress, alert Cardiovascular: normal rate Respiratory/Chest: normal breath sounds, no respiratory distress Abdominal Exam: normal bowel sounds, non tender, soft Extremities: normal range of motion, non-tender Vannessa Pizarro NP Jun 25, 2018 12:34
[2018-06-25 16:00] VITALS: BP 111/87
--- NOTE | 2018-06-25 16:48 | General Surgery Progress Note ---
General Surgery-Progress Note Subjective Additional Comments leukocytosis resolved. labs noted. headache. abd cramping but slowly improving. no n/v/f/c. tolerating diet without pain Objective Last 24 Hour Vital Signs Date Time Temp Pulse Resp B/P (MAP) Pulse Ox O2 Delivery O2 Flow Rate FiO2 06/25/18 16:00 97.9 92 20 111/87 (95) 98 06/25/18 12:00 97.7 95 20 155/89 (111) 95 06/25/18 09:00 Room Air Room Air 06/25/18 08:00 97.9 116 20 138/84 (102) 95 06/25/18 04:00 97.4 100 20 153/92 (112) 93 06/25/18 00:00 96.6 94 20 122/73 (89) 96 06/24/18 21:00 Room Air Room Air 06/24/18 20:00 97.9 84 20 130/79 (96) 100 I&O Intake and Output 06/24/18 06/25/18 18:59 06:59 Intake Total 835 ml 1120 ml Output Total 2 ml Balance 833 ml 1120 ml Intake Oral 480 ml 120 ml IV Total 355 ml 1000 ml Output Urine Total 2 ml # Voids 4 3 # Bowel Movements 3 Drains: none Cardiovascular: RSR Respiratory: clear Abdomen: soft, distended, non-tender, present bowel sounds Extremities: no tenderness, no cyanosis Laboratory Tests Test 06/25/18 06:35 White Blood Count 10.1 K/UL (4.8-10.8) Red Blood Count 4.42 M/UL (4.20-5.40) Hemoglobin 13.1 G/DL (12.0-16.0) Hematocrit 40.1 % (37.0-47.0) Mean Corpuscular Volume 91 FL (80-99) Mean Corpuscular Hemoglobin 29.7 PG (27.0-31.0) Mean Corpuscular Hemoglobin Concent 32.7 G/DL (32.0-36.0) Red Cell Distribution Width 11.7 % (11.6-14.8) Platelet Count 267 K/UL (150-450) Mean Platelet Volume 6.0 FL (6.5-10.1) L Neutrophils (%) (Auto) 80.1 % (45.0-75.0) H Lymphocytes (%) (Auto) 8.6 % (20.0-45.0) L Monocytes (%) (Auto) 7.4 % (1.0-10.0) Eosinophils (%) (Auto) 3.2 % (0.0-3.0) H Basophils (%) (Auto) 0.7 % (0.0-2.0) Prothrombin Time 26.5 SEC (9.30-11.50) H Prothromb Time International Ratio 2.6 (0.9-1.1) H Sodium Level 143 MMOL/L (136-145) Potassium Level 3.6 MMOL/L (3.5-5.1) Chloride Level 101 MMOL/L (98-107) Carbon Dioxide Level 37 MMOL/L (21-32) H Anion Gap 5 mmol/L (5-15) Blood Urea Nitrogen 8 mg/dL (7-18) Creatinine 0.5 MG/DL (0.55-1.30) L Estimat Glomerular Filtration Rate mL/min (>60) Glucose Level 115 MG/DL (74-106) H Calcium Level 8.6 MG/DL (8.5-10.1) Triglycerides Level 57 MG/DL (30-150) Cholesterol Level 109 MG/DL (< 200) LDL Cholesterol 42 mg/dL (<100) HDL Cholesterol 51 MG/DL (40-60) Cholesterol/HDL Ratio 2.1 (3.3-4.4) L CA 19-9 Antigen Pending Plan Problems: (1) Acute pancreatitis Assessment & Plan: seen as radiographic finding and clinically symptoms can correlate lipase normal possible resolving trend labs will treat clinically Ct noted. worsening phlegmon/edema clinically improving and tolerating diet cont current care. if condition changes need to manage. not ready for d/c ct impressive (2) Leukocytosis Assessment & Plan: UTI? colitis/enteritis? pancreatitis resolved on Abx trend labs (3) Intractable abdominal pain Assessment & Plan: possibly related to duodenitis or pancreatitis labs noted CT noted will follow clinically serial exams will start clear liquids advance diet as tolerated bowel care as seems to be constipated thank you Eliel Carlson Jun 25, 2018 16:48
[2018-06-25] MEDS ORDERED: Warfarin Sodium 3mg ORAL ONE (17:00)
--- NOTE | 2018-06-25 17:21 | Consultation ---
History of Present Illness General Date patient seen: Jun 25, 2018 Chief Complaint: Abdominal Pain Referring physician: [place] Reason for Consultation: abdominal pain Present Illness HPI 78 y/o F w/ hx of CAD s/p CABG, valve surgery (details unclear) presented to ED with 1-2 days of severe epigastric pain (non radiating, burning sensation, 10/ 10), nausea and vomiting. Upon admission noted to ahve leukocytosis, CT abd/p w / possible duodenitis/pancreatic head inflammation. Denied dysuria, melena, fever, CP, cough, URI symptoms upon admission. Allergies: Coded Allergies: No Known Allergies (Unverified , 06/20/18) Medication History Scheduled Amiodarone Hcl* (Amiodarone Hcl*), 200 MG ORAL DAILY, (Reported) Atorvastatin Calcium* (Atorvastatin Calcium*), 20 MG ORAL BEDTIME, (Reported) Diltiazem Hcl* (Cardizem Cd*), 120 MG ORAL DAILY, (Reported) Donepezil Hcl* (Donepezil Hcl*), 10 MG ORAL DAILY, (Reported) Ergocalciferol (Vitamin D2)* (Vitamin D*), 50,000 UNIT ORAL ONCE A WEEK, ( Reported) Furosemide* (Lasix*), 40 MG ORAL DAILY, (Reported) Norethind Ac/Ethinyl Estradiol (Femhrt 0.5 Mg-2.5 Mcg Tablet), 1 EACH PO DAILY, (Reported) Omeprazole (Omeprazole), 20 MG ORAL DAILY, (Reported) Ropinirole Hcl* (Ropinirole Hcl*), 0.25 MG PO TID, (Reported) Warfarin Sod* (Warfarin Sod*), 3 MG ORAL DAILY, (Reported) Miscellaneous Medications Unable to Obtain Medications (Unable To Obtain Meds), (Reported) Patient History Healthcare decision maker Resuscitation status Full Code Advanced Directive on File Patient History Narrative General Appearance: WD/WN, alert, moderate distress Lines, tubes and drains: peripheral HEENT: normocephalic, atraumatic, anicteric, mucous membranes moist, PERRL Neck: non-tender, normal alignment, supple, normal inspection Respiratory/Chest: chest wall non-tender, lungs clear, normal breath sounds, no respiratory distress, no accessory muscle use Cardiovascular/Chest: normal peripheral pulses Abdomen: normal bowel sounds, soft, no organomegaly, no mass, tender - midepigastric ttp Extremities: normal range of motion, non-tender, normal inspection, no calf tenderness, normal capillary refill Skin Exam: normal pigmentation, warm/dry 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, no motor/sensory deficits, alert, oriented x 3, responsive, normal mood/affect Physical Exam Physical Exam Narrative Pmhx: as above Shx: Denies: smoking, alcohol use, drug use Fhx: non contributory Last 24 Hour Vital Signs Date Time Temp Pulse Resp B/P (MAP) Pulse Ox O2 Delivery O2 Flow Rate FiO2 06/25/18 16:00 97.9 92 20 111/87 (95) 98 06/25/18 12:00 97.7 95 20 155/89 (111) 95 06/25/18 09:00 Room Air Room Air 06/25/18 08:00 97.9 116 20 138/84 (102) 95 06/25/18 04:00 97.4 100 20 153/92 (112) 93 06/25/18 00:00 96.6 94 20 122/73 (89) 96 06/24/18 21:00 Room Air Room Air 06/24/18 20:00 97.9 84 20 130/79 (96) 100 Intake and Output 06/24/18 06/25/18 18:59 06:59 Intake Total 835 ml 1120 ml Output Total 2 ml Balance 833 ml 1120 ml Intake Oral 480 ml 120 ml IV Total 355 ml 1000 ml Output Urine Total 2 ml # Voids 4 3 # Bowel Movements 3 Laboratory Tests Test 06/25/18 06:35 White Blood Count 10.1 K/UL (4.8-10.8) Red Blood Count 4.42 M/UL (4.20-5.40) Hemoglobin 13.1 G/DL (12.0-16.0) Hematocrit 40.1 % (37.0-47.0) Mean Corpuscular Volume 91 FL (80-99) Mean Corpuscular Hemoglobin 29.7 PG (27.0-31.0) Mean Corpuscular Hemoglobin Concent 32.7 G/DL (32.0-36.0) Red Cell Distribution Width 11.7 % (11.6-14.8) Platelet Count 267 K/UL (150-450) Mean Platelet Volume 6.0 FL (6.5-10.1) L Neutrophils (%) (Auto) 80.1 % (45.0-75.0) H Lymphocytes (%) (Auto) 8.6 % (20.0-45.0) L Monocytes (%) (Auto) 7.4 % (1.0-10.0) Eosinophils (%) (Auto) 3.2 % (0.0-3.0) H Basophils (%) (Auto) 0.7 % (0.0-2.0) Prothrombin Time 26.5 SEC (9.30-11.50) H Prothromb Time International Ratio 2.6 (0.9-1.1) H Sodium Level 143 MMOL/L (136-145) Potassium Level 3.6 MMOL/L (3.5-5.1) Chloride Level 101 MMOL/L (98-107) Carbon Dioxide Level 37 MMOL/L (21-32) H Anion Gap 5 mmol/L (5-15) Blood Urea Nitrogen 8 mg/dL (7-18) Creatinine 0.5 MG/DL (0.55-1.30) L Estimat Glomerular Filtration Rate mL/min (>60) Glucose Level 115 MG/DL (74-106) H Calcium Level 8.6 MG/DL (8.5-10.1) Triglycerides Level 57 MG/DL (30-150) Cholesterol Level 109 MG/DL (< 200) LDL Cholesterol 42 mg/dL (<100) HDL Cholesterol 51 MG/DL (40-60) Cholesterol/HDL Ratio 2.1 (3.3-4.4) L CA 19-9 Antigen Pending Height (Feet): 5 Height (Inches): 6.00 Weight (Pounds): 168 Medications Current Medications Medications (Trade) Dose Ordered Sig/Bettina Route PRN Reason Start Time Stop Time Status Last Admin Dose Admin Acetaminophen (Tylenol) 650 mg Q6H PRN ORAL Mild Pain/Temp > 100.5 06/21/18 20:00 07/21/18 19:59 06/24/18 18:56 Amiodarone HCl (Cordarone) 400 mg DAILY ORAL 06/21/18 09:00 07/21/18 08:59 06/25/18 08:57 Aspirin (ASA) 81 mg DAILY ORAL 06/23/18 09:00 07/20/18 08:59 06/25/18 08:56 Atorvastatin Calcium (Lipitor) 20 mg BEDTIME ORAL 06/20/18 21:00 07/20/18 20:59 06/24/18 22:03 Barium Sulfate (Readi-Cat 2) 450 ml NOW PRN ORAL Radiology Procedure 06/24/18 11:00 06/26/18 10:59 Barium Sulfate (Readi-Cat 2) 450 ml NOW PRN ORAL Radiology Procedure 06/24/18 11:45 06/26/18 11:38 Bisacodyl (Dulcolax) 10 mg DAILYPRN PRN RECTAL Constipation 06/23/18 07:45 07/23/18 07:44 06/23/18 17:16 Cefepime HCl 1 gm/ Dextrose 55 ml @ 110 mls/hr Q24H IVPB 06/20/18 18:00 06/27/18 17:59 06/24/18 17:18 Docusate Sodium (Colace) 100 mg THREE TIMES A DAY ORAL 06/21/18 13:00 07/21/18 12:59 06/25/18 13:49 Donepezil HCl (Aricept) 10 mg QHS ORAL 06/20/18 21:00 07/20/18 20:59 06/24/18 22:03 Ergocalciferol (Drisdol) 50,000 intlu ONCE A WEEK ORAL 06/20/18 18:00 07/20/18 17:59 06/20/18 18:10 Furosemide (Lasix) 40 mg DAILY IV 06/26/18 09:00 07/26/18 08:59 Hydromorphone HCl (Dilaudid) 0.5 mg Q4H PRN IVP For Pain 06/24/18 19:30 07/01/18 19:29 06/25/18 06:38 Iopamidol (Isovue-300 100ml) 100 ml NOW PRN INJ Radiology Procedure 06/24/18 11:00 06/26/18 10:59 Metronidazole 100 ml @ 100 mls/hr Q8HR IVPB 06/20/18 14:00 06/27/18 13:59 06/25/18 13:49 Ondansetron HCl (Zofran) 4 mg Q6H PRN IVP Nausea & Vomiting 06/20/18 09:00 07/20/18 08:59 Pantoprazole (Protonix) 40 mg EVERY 12 HOURS IVP 06/23/18 21:00 07/23/18 20:59 06/25/18 08:56 Patient Own Medication (Patient's Own Med) 1 ea DAILY ORAL 06/21/18 09:00 07/21/18 08:59 06/25/18 08:58 Patient Own Medication (Patient's Own Med) 1 ea DAILY ORAL 06/21/18 09:00 07/21/18 08:59 06/25/18 08:58 Ropinirole HCl (Requip) 0.25 mg THREE TIMES A DAY ORAL 06/20/18 18:00 07/20/18 17:59 06/25/18 13:49 Senna/Docusate Sodium (Jania-Colace) 1 tab BID PRN ORAL Constipation 06/21/18 10:00 07/21/18 09:59 Simethicone (Mylicon) 80 mg QIDPRN PRN ORAL GAS PAIN 06/24/18 13:00 07/24/18 12:59 Sodium Phosphate (Fleet's Sodium Phosl Enema) 133 ml DAILY PRN RECTAL Constipation 06/25/18 11:45 07/25/18 11:44 Warfarin Sodium (Coumadin per pharmacy) 1 ea DAILY PRN MISC Per rx protocol 06/20/18 16:30 07/20/18 16:29 Warfarin Sodium (Coumadin) 3 mg COUMADIN ONCE ORAL 06/25/18 17:00 06/25/18 17:01 Assessment/Plan Assessment/Plan Abx: Cefepime 06/20- Flagyl 06/20- Assessment: Acute pancreatitis -06/24 CT abd/p: : Findings compatible with acute pancreatitis of the pancreatic head and uncinate, also previously reported. There is slight progression of phlegmon along the adjacent mesenteric root. Extensive disease otherwise similar to previous exam. No evidence of necrosis or new peripancreatic fluid collection demonstrated. Small cystic lesions versus multilobulated single lesion within the in segment 8 process of the pancreas. This may reflect an old pseudocyst or a branch duct intraductal papillary mucinous neoplasm. Inflammatory changes in the pelvis with stranding of the pelvic fat. These are nonspecific, may be related to the pancreatic inflammation (although somewhat remote from such),, or could indicate pelvic inflammatory changes either of the uterus/ovaries or rectum. Mild distal rectal wall thickening, may be artifact of under distention, but could indicate proctitis and possibly explain the above findings -06/20 Abd US: Cholelithiasis, also described on recent CT scan. Mildly ectatic main pancreatic duct, significance uncertain. Note patient has diagnosis of pancreatitis on recent CT. 18 x 17 mm cyst within the uncinate process of the pancreas. Given history of pancreatitis, likely a small pseudocyst. However, a cystic neoplasm such as branch duct intraductal papillary mucinous neoplasm is also a possibility -06/20 CT abd/p : Peripancreatic infiltrative changes with edema of the pancreatic head and uncinate process, as well as reactive wall thickening of the adjacent duodenum. Findings are most likely due to an acute pancreatitis. Please correlate with serum pancreatic enzymes. A primary infectious/ inflammatory duodenitis is less likely. Dilated pancreatic side duct or 2 cm cyst seen within the uncinate process. Cholelithiasis, without evidence of biliary obstruction. Low grade fever, SP Leukocytosis, SP -Bcx NTD -u/a neg -Cdiff neg CAD s/p CABG valve surgery (details unclear) Plan: -Continue empiric Cefepime and Flagyl #6/7 in the setting of pancreatitis/ phlegmon. -f/u cx -Monitor CBC/CMP, temperatures\ -Sx f/u -Aspiration precautions Thank you for this consultation. Will continue to follow along with you. Discussed with Maria Guadalupe Yin M.D. Jun 25, 2018 17:21
[2018-06-25] MEDS: Cefepime HCl 1 GM in D5W 55 ML IVPB SCH (18:13)
[2018-06-25 20:00] VITALS: BP 148/80
[2018-06-25] MEDS: Donepezil 10mg tab ORAL SCH (21:17)
[2018-06-25] MEDS: Atorvastatin 20mg tab ORAL SCH (21:19)
[2018-06-26] VITALS: BP 137/77
[2018-06-26 04:00] VITALS: BP 158/78
--- NOTE | 2018-06-26 06:33 | General Progress Note ---
Assessment/Plan Problem List: (1) Pancreatic cyst ICD Codes: K86.2 - Cyst of pancreas SNOMED: 54650022 (2) Acute pancreatitis ICD Codes: K85.90 - Acute pancreatitis without necrosis or infection, unspecified SNOMED: 525806803 (3) Leukocytosis ICD Codes: D72.829 - Elevated white blood cell count, unspecified SNOMED: 408178144, 077779222 Qualifiers: Qualified Codes: D72.829 - Elevated white blood cell count, unspecified (4) Cholelithiasis ICD Codes: K80.20 - Calculus of gallbladder without cholecystitis without obstruction SNOMED: 234217784 Qualifiers: Qualified Codes: K80.20 - Calculus of gallbladder without cholecystitis without obstruction (5) Duodenitis ICD Codes: K29.80 - Duodenitis without bleeding SNOMED: 03137158 (6) Constipation ICD Codes: K59.00 - Constipation, unspecified SNOMED: 37351890 (7) S/P CABG (coronary artery bypass graft) ICD Codes: Z95.1 - Presence of aortocoronary bypass graft SNOMED: 27768152, 808852540, 303386677 Assessment/Plan CT AP reviewed >> Findings compatible with acute pancreatitis of the pancreatic head and uncinate, also previously reported. No evidence of necrosis or new peripancreatic fluid collection demonstrated. abdominal distention most likely due to pancreatitis ? due to gallstones will order MRCP on diet with minimal po intake +BM IV hydration encourage turning q2 hours and ambulation as tolerated zofran prn fu labs, CA19-9, lipid panel needs outpatient EGD/colonoscopy screening, EUS to evaluate pancreatic cyst. dc protonix Subjective ROS Limited/Unobtainable: Yes Allergies: Coded Allergies: No Known Allergies (Unverified , 06/20/18) Subjective abd pain Objective Last 24 Hour Vital Signs Date Time Temp Pulse Resp B/P (MAP) Pulse Ox O2 Delivery O2 Flow Rate FiO2 06/26/18 04:00 99.2 83 18 158/78 (104) 100 06/26/18 00:00 98.6 80 18 137/77 (97) 100 06/25/18 21:00 Room Air Room Air 06/25/18 20:00 99.2 81 18 148/80 (102) 100 06/25/18 16:00 97.9 92 20 111/87 (95) 98 06/25/18 12:00 97.7 95 20 155/89 (111) 95 06/25/18 09:00 Room Air Room Air 06/25/18 08:00 97.9 116 20 138/84 (102) 95 Intake and Output 06/25/18 06/26/18 19:00 07:00 Intake Total 1080 ml 100 ml Balance 1080 ml 100 ml Intake Oral 480 ml IV Total 600 ml 100 ml # Voids 5 # Bowel Movements 3 Laboratory Tests 06/25/18 06:35: White Blood Count 10.1, Red Blood Count 4.42, Hemoglobin 13.1, Hematocrit 40.1, Mean Corpuscular Volume 91, Mean Corpuscular Hemoglobin 29.7, Mean Corpuscular Hemoglobin Concent 32.7, Red Cell Distribution Width 11.7, Platelet Count 267, Mean Platelet Volume 6.0L, Neutrophils (%) (Auto) 80.1H, Lymphocytes (%) (Auto) 8.6L, Monocytes (%) (Auto) 7.4, Eosinophils (%) (Auto) 3.2H, Basophils (%) (Auto ) 0.7, Prothrombin Time 26.5H, Prothromb Time International Ratio 2.6H, Sodium Level 143, Potassium Level 3.6, Chloride Level 101, Carbon Dioxide Level 37H, Anion Gap 5, Blood Urea Nitrogen 8, Creatinine 0.5L, Estimat Glomerular Filtration Rate , Glucose Level 115H, Calcium Level 8.6, Triglycerides Level 57 , Cholesterol Level 109, LDL Cholesterol 42, HDL Cholesterol 51, Cholesterol/ HDL Ratio 2.1L, CA 19-9 Antigen [Pending] 06/26/18 05:55: White Blood Count [Pending], Red Blood Count [Pending], Hemoglobin [Pending], Hematocrit [Pending], Mean Corpuscular Volume [Pending], Mean Corpuscular Hemoglobin [Pending], Mean Corpuscular Hemoglobin Concent [Pending], Red Cell Distribution Width [Pending], Platelet Count [Pending], Mean Platelet Volume [ Pending], Neutrophils (%) (Auto) [Pending], Lymphocytes (%) (Auto) [Pending], Monocytes (%) (Auto) [Pending], Eosinophils (%) (Auto) [Pending], Basophils (%) (Auto) [Pending], Prothrombin Time [Pending], Prothromb Time International Ratio [Pending], Sodium Level [Pending], Potassium Level [Pending], Chloride Level [Pending], Carbon Dioxide Level [Pending], Blood Urea Nitrogen [Pending], Creatinine [Pending], Estimat Glomerular Filtration Rate [Pending], Glucose Level [Pending], Calcium Level [Pending] Height (Feet): 5 Height (Inches): 6.00 Weight (Pounds): 168 General Appearance: alert EENT: normal ENT inspection Neck: supple Cardiovascular: normal rate Respiratory/Chest: decreased breath sounds Abdomen: hypoactive bowel sounds, distended, tender Extremities: swelling Heath Garcia MD Jun 26, 2018 06:33
[2018-06-26 06:47] LABS: BASOPHILS % (AUTO) 0.6 % (0.0-2.0); EOSINOPHILS % (AUTO) 3.7 % (0.0-3.0); HEMATOCRIT 37.8 % (37.0-47.0); HEMOGLOBIN 12.5 G/DL (12.0-16.0); LYMPHOCYTES % (AUTO) 11.6 % (20.0-45.0); MEAN CORPUSCULAR VOLUME 89 FL (80-99); MONOCYTES % (AUTO) 7.8 % (1.0-10.0); NEUTROPHILS % (AUTO) 76.4 % (45.0-75.0); PLATELET COUNT 258 K/UL (150-450); RED BLOOD COUNT 4.24 M/UL (4.20-5.40); RED CELL DISTRIBUTION WIDTH 11.7 % (11.6-14.8); WHITE BLOOD COUNT 9.6 K/UL (4.8-10.8)
[2018-06-26 06:53] LABS: INR 2.9 (0.9-1.1)
[2018-06-26 07:13] LABS: ANION GAP 1 mmol/L (5-15); BLOOD UREA NITROGEN 8 mg/dL (7-18); CALCIUM 8.2 MG/DL (8.5-10.1); CHLORIDE 101 MMOL/L (98-107); CREATININE 0.6 MG/DL (0.55-1.30); POTASSIUM 2.9 MMOL/L (3.5-5.1); SODIUM 144 MMOL/L (136-145)
[2018-06-26 07:15] LABS: CARBON DIOXIDE 44 MMOL/L (21-32)
--- NOTE | 2018-06-26 08:34 | General Progress Note ---
Assessment/Plan Problem List: (1) Acute pancreatitis Assessment & Plan: Lipase 309 CT abd/pelvis reviewed, showing concerns for pancreatitis gen surg recs much appreciated ADAT, will try regular diet IVF prn antiemetics pain control monitor closely repeat ct showing fat stranding with pseudocyst ICD Codes: K85.90 - Acute pancreatitis without necrosis or infection, unspecified SNOMED: 226535164 (2) Intractable nausea and vomiting Assessment & Plan: prn antiemetics due to pancreatitis bowel rest pain control stable ICD Codes: R11.2 - Nausea with vomiting, unspecified SNOMED: 696335128 (3) Intractable abdominal pain Assessment & Plan: pain control due to pancreatitis/duodenitis/severe constipation continue bowel care, having a lot of BMs overnight however abd still distended GI consulted for evaluation as well, may need disimpaction ICD Codes: R10.9 - Unspecified abdominal pain SNOMED: 04463790, 493863288 (4) Duodenitis Assessment & Plan: per ct read cefepime flagyl bcx x 2 sent ICD Codes: K29.80 - Duodenitis without bleeding SNOMED: 19332220 (5) Leukocytosis Assessment & Plan: wbc 14 on admit, now improving not septic criteria abx fluids pain control gen surg consulted ICD Codes: D72.829 - Elevated white blood cell count, unspecified SNOMED: 812016957, 696642487 Qualifiers: Qualified Codes: D72.829 - Elevated white blood cell count, unspecified (6) CAD (coronary artery disease) Assessment & Plan: resume home meds stable ICD Codes: I25.10 - Atherosclerotic heart disease of [place] coronary artery without angina pectoris SNOMED: 29193252 Qualifiers: Qualified Codes: I25.10 - Atherosclerotic heart disease of [place] coronary artery without angina pectoris (7) S/P CABG (coronary artery bypass graft) Assessment & Plan: resume home meds when arrives stable ICD Codes: Z95.1 - Presence of aortocoronary bypass graft SNOMED: 30197205, 703215096, 557914889 (8) Constipation Assessment & Plan: continue with bowel care likely main cause of her sx appreciate surg recs Gi consulted, may need manual disimpaction ICD Codes: K59.00 - Constipation, unspecified SNOMED: 27448948 (9) Weakness generalized Assessment & Plan: is able to ambulate however poor effort discussed with nursing to ambulate patient ICD Codes: R53.1 - Weakness SNOMED: 81230222 (10) Failure to thrive Assessment & Plan: advance diet as tolerated will try to give regular diet prn antiemetics pain control appreciate gen surg recs 2/2 severe acute pancreatitis with pseudocyst noted on ct. SNOMED: 25106059 (11) Pseudocyst of pancreas Assessment & Plan: will need outpt f/u rrepeat ct in 6 weeks outpt ICD Codes: K86.3 - Pseudocyst of pancreas SNOMED: 664297192 (12) Pleural effusion Assessment & Plan: seems like patient did not receive enough diuresis reviewed cxr b/l pleural effusions noted inc diuresis dec fluid intake monitor ICD Codes: J90 - Pleural effusion, not elsewhere classified SNOMED: 37116885 (13) Abdominal distention Assessment & Plan: likely due to pancreatitis monitor may take time to improve appreciate gi and surgery recs ICD Codes: R14.0 - Abdominal distension (gaseous) SNOMED: 00420270 Status: unchanged Assessment/Plan ppx: coumadin, scd diet:clear liquid diet as tolerated I have have spent over 42 minutes regarding patient care and counseling and 23 minutes of face to face time patient's case has been complicated by acute severe pancreatitis, repeat ct scan still showing inflammatory pancreatic changes along with pseudocyst will need outpt repeat ct scan in 6 weeks Subjective Date patient seen: Jun 26, 2018 Time patient seen: 08:28 Allergies: Coded Allergies: No Known Allergies (Unverified , 06/20/18) Subjective f/u intractable abdominal pain, intractable nausea/vomiting, pancreatitis, duodenitis, constipation, pleural effusions n/v improving a bit still having abdominal pain, when eating difficult to tolerate diet discussed case with gen surg, this is acute severe pancreatitis patient also noted to have pseudocyst on ct will need to continue pain control increased diuresis yesterday due to pleural effusions ROS: 12 point ros reviewed and negative except for the above Objective Last 24 Hour Vital Signs Date Time Temp Pulse Resp B/P (MAP) Pulse Ox O2 Delivery O2 Flow Rate FiO2 06/26/18 04:00 99.2 83 18 158/78 (104) 100 06/26/18 00:00 98.6 80 18 137/77 (97) 100 06/25/18 21:00 Room Air Room Air 06/25/18 20:00 99.2 81 18 148/80 (102) 100 06/25/18 16:00 97.9 92 20 111/87 (95) 98 06/25/18 12:00 97.7 95 20 155/89 (111) 95 06/25/18 09:00 Room Air Room Air Intake and Output 06/25/18 06/26/18 19:00 07:00 Intake Total 1080 ml 520 ml Output Total 1300 ml Balance 1080 ml -780 ml Intake Oral 480 ml IV Total 600 ml 100 ml Other 420 ml Output Urine Total 1300 ml # Voids 5 # Bowel Movements 3 Laboratory Tests 06/26/18 05:55: White Blood Count 9.6, Red Blood Count 4.24, Hemoglobin 12.5, Hematocrit 37.8, Mean Corpuscular Volume 89, Mean Corpuscular Hemoglobin 29.6, Mean Corpuscular Hemoglobin Concent 33.2, Red Cell Distribution Width 11.7, Platelet Count 258, Mean Platelet Volume 6.2L, Neutrophils (%) (Auto) 76.4H, Lymphocytes (%) (Auto) 11.6L, Monocytes (%) (Auto) 7.8, Eosinophils (%) (Auto) 3.7H, Basophils (%) ( Auto) 0.6, Prothrombin Time 28.9H, Prothromb Time International Ratio 2.9H, Sodium Level 144, Potassium Level 2.9L, Chloride Level 101, Carbon Dioxide Level 44*H, Anion Gap 1L, Blood Urea Nitrogen 8, Creatinine 0.6, Estimat Glomerular Filtration Rate , Glucose Level 111H, Calcium Level 8.2L, Magnesium Level [Pending] Height (Feet): 5 Height (Inches): 6.00 Weight (Pounds): 168 General Appearance: WD/WN, no apparent distress, alert EENT: PERRL/EOMI, normal ENT inspection, TMs normal, pharynx normal Neck: non-tender, normal alignment, supple, normal inspection Cardiovascular: normal peripheral pulses, normal rate, regular rhythm Respiratory/Chest: chest wall non-tender, other - mild b/l pulm rhonchi Abdomen: normal bowel sounds, soft, no organomegaly, no mass, other - TTP abdominal wall with mild distention Extremities: normal range of motion, non-tender, normal inspection 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
[2018-06-26 08:47] VITALS: BP 132/60
[2018-06-26] MEDS: Pantoprazole Inj IVP SCH (09:31)
[2018-06-26] MEDS: Amiodarone 200mg tab ORAL SCH (09:32)
[2018-06-26] MEDS: NORETHINDRONE ACETATE ORAL SCH (09:32)
[2018-06-26] MEDS: ETHINYL ESTRADIOL ORAL SCH (09:32)
[2018-06-26] MEDS: Docusate 100mg cap ORAL SCH ×3 (09:32→19:24)
[2018-06-26] MEDS: Aspirin Baby 81mg ORAL SCH (09:32)
[2018-06-26] MEDS: rOPINIRole 0.25mg tab ORAL SCH ×3 (09:33→19:25)
[2018-06-26] MEDS: OMEPRAZOLE 20MG ORAL SCH (09:33)
[2018-06-26 12:00] VITALS: BP 130/75
--- NOTE | 2018-06-26 12:13 | Infectious Diseases Prog Note ---
Assessment/Plan Assessment/Plan Abx: Cefepime 06/20- Flagyl 06/20- Assessment: Acute pancreatitis -06/24 CT abd/p: : Findings compatible with acute pancreatitis of the pancreatic head and uncinate, also previously reported. There is slight progression of phlegmon along the adjacent mesenteric root. Extensive disease otherwise similar to previous exam. No evidence of necrosis or new peripancreatic fluid collection demonstrated. Small cystic lesions versus multilobulated single lesion within the in segment 8 process of the pancreas. This may reflect an old pseudocyst or a branch duct intraductal papillary mucinous neoplasm. Inflammatory changes in the pelvis with stranding of the pelvic fat. These are nonspecific, may be related to the pancreatic inflammation (although somewhat remote from such),, or could indicate pelvic inflammatory changes either of the uterus/ovaries or rectum. Mild distal rectal wall thickening, may be artifact of under distention, but could indicate proctitis and possibly explain the above findings -06/20 Abd US: Cholelithiasis, also described on recent CT scan. Mildly ectatic main pancreatic duct, significance uncertain. Note patient has diagnosis of pancreatitis on recent CT. 18 x 17 mm cyst within the uncinate process of the pancreas. Given history of pancreatitis, likely a small pseudocyst. However, a cystic neoplasm such as branch duct intraductal papillary mucinous neoplasm is also a possibility -06/20 CT abd/p : Peripancreatic infiltrative changes with edema of the pancreatic head and uncinate process, as well as reactive wall thickening of the adjacent duodenum. Findings are most likely due to an acute pancreatitis. Please correlate with serum pancreatic enzymes. A primary infectious/ inflammatory duodenitis is less likely. Dilated pancreatic side duct or 2 cm cyst seen within the uncinate process. Cholelithiasis, without evidence of biliary obstruction. Low grade fever, SP Leukocytosis, SP -Bcx NTD -u/a neg -Cdiff neg CAD s/p CABG valve surgery (details unclear) Plan: -Continue empiric Cefepime and Flagyl #7/7 in the setting of pancreatitis/ phlegmon. -f/u cx -Monitor CBC/CMP, temperatures\ -Sx f/u -Aspiration precautions Thank you for this consultation. Will continue to follow along with you. Discussed with RN. Subjective Allergies: Coded Allergies: No Known Allergies (Unverified , 06/20/18) Subjective afebrile no leukocytosis abd pain improving Objective Vital Signs Last 24 Hour Vital Signs Date Time Temp Pulse Resp B/P (MAP) Pulse Ox O2 Delivery O2 Flow Rate FiO2 06/26/18 09:00 Room Air Room Air 06/26/18 08:47 97.0 85 18 132/60 (84) 95 06/26/18 04:00 99.2 83 18 158/78 (104) 100 06/26/18 00:00 98.6 80 18 137/77 (97) 100 06/25/18 21:00 Room Air Room Air 06/25/18 20:00 99.2 81 18 148/80 (102) 100 06/25/18 16:00 97.9 92 20 111/87 (95) 98 Height (Feet): 5 Height (Inches): 6.00 Weight (Pounds): 168 Objective General Appearance: WD/WN, alert, moderate distress Lines, tubes and drains: peripheral HEENT: normocephalic, atraumatic, anicteric, mucous membranes moist, PERRL Neck: non-tender, normal alignment, supple, normal inspection Respiratory/Chest: chest wall non-tender, lungs clear, normal breath sounds, no respiratory distress, no accessory muscle use Cardiovascular/Chest: normal peripheral pulses Abdomen: normal bowel sounds, soft, no organomegaly, no mass, tender - midepigastric ttp Extremities: normal range of motion, non-tender, normal inspection, no calf tenderness, normal capillary refill Skin Exam: normal pigmentation, warm/dry Microbiology Date/Time Source Procedure Growth Status 06/23/18 23:00 Stool Clostridium difficile Toxin Assay - Final Complete Laboratory Tests Test 06/26/18 05:55 White Blood Count 9.6 K/UL (4.8-10.8) Red Blood Count 4.24 M/UL (4.20-5.40) Hemoglobin 12.5 G/DL (12.0-16.0) Hematocrit 37.8 % (37.0-47.0) Mean Corpuscular Volume 89 FL (80-99) Mean Corpuscular Hemoglobin 29.6 PG (27.0-31.0) Mean Corpuscular Hemoglobin Concent 33.2 G/DL (32.0-36.0) Red Cell Distribution Width 11.7 % (11.6-14.8) Platelet Count 258 K/UL (150-450) Mean Platelet Volume 6.2 FL (6.5-10.1) L Neutrophils (%) (Auto) 76.4 % (45.0-75.0) H Lymphocytes (%) (Auto) 11.6 % (20.0-45.0) L Monocytes (%) (Auto) 7.8 % (1.0-10.0) Eosinophils (%) (Auto) 3.7 % (0.0-3.0) H Basophils (%) (Auto) 0.6 % (0.0-2.0) Prothrombin Time 28.9 SEC (9.30-11.50) H Prothromb Time International Ratio 2.9 (0.9-1.1) H Sodium Level 144 MMOL/L (136-145) Potassium Level 2.9 MMOL/L (3.5-5.1) L Chloride Level 101 MMOL/L (98-107) Carbon Dioxide Level 44 MMOL/L (21-32) *H Anion Gap 1 mmol/L (5-15) L Blood Urea Nitrogen 8 mg/dL (7-18) Creatinine 0.6 MG/DL (0.55-1.30) Estimat Glomerular Filtration Rate mL/min (>60) Glucose Level 111 MG/DL (74-106) H Calcium Level 8.2 MG/DL (8.5-10.1) L Magnesium Level 1.7 MG/DL (1.8-2.4) L Current Medications Medications (Trade) Dose Ordered Sig/Bettina Route PRN Reason Start Time Stop Time Status Last Admin Dose Admin Acetaminophen (Tylenol) 650 mg Q6H PRN ORAL Mild Pain/Temp > 100.5 06/21/18 20:00 07/21/18 19:59 06/25/18 19:37 Amiodarone HCl (Cordarone) 400 mg DAILY ORAL 06/21/18 09:00 07/21/18 08:59 06/26/18 09:32 Aspirin (ASA) 81 mg DAILY ORAL 06/23/18 09:00 07/20/18 08:59 06/26/18 09:32 Atorvastatin Calcium (Lipitor) 20 mg BEDTIME ORAL 06/20/18 21:00 07/20/18 20:59 06/25/18 21:19 Bisacodyl (Dulcolax) 10 mg DAILYPRN PRN RECTAL Constipation 06/23/18 07:45 07/23/18 07:44 06/23/18 17:16 Cefepime HCl 1 gm/ Dextrose 55 ml @ 110 mls/hr Q24H IVPB 06/20/18 18:00 06/27/18 17:59 06/25/18 18:13 Diphenhydramine HCl (Benadryl) 25 mg HSPRN PRN ORAL Insomnia 06/25/18 21:00 07/25/18 20:59 06/25/18 21:18 Docusate Sodium (Colace) 100 mg THREE TIMES A DAY ORAL 06/21/18 13:00 07/21/18 12:59 06/26/18 09:32 Donepezil HCl (Aricept) 10 mg QHS ORAL 06/20/18 21:00 07/20/18 20:59 06/25/18 21:17 Ergocalciferol (Drisdol) 50,000 intlu ONCE A WEEK ORAL 06/20/18 18:00 07/20/18 17:59 06/20/18 18:10 Furosemide (Lasix) 40 mg DAILY IV 06/26/18 09:00 07/26/18 08:59 06/26/18 09:31 Hydromorphone HCl (Dilaudid) 0.5 mg Q4H PRN IVP For Pain 06/24/18 19:30 07/01/18 19:29 06/25/18 06:38 Metronidazole 100 ml @ 100 mls/hr Q8HR IVPB 06/20/18 14:00 06/27/18 13:59 06/25/18 21:19 Ondansetron HCl (Zofran) 4 mg Q6H PRN IVP Nausea & Vomiting 06/20/18 09:00 07/20/18 08:59 Pantoprazole (Protonix) 40 mg EVERY 12 HOURS IVP 06/23/18 21:00 07/23/18 20:59 06/26/18 09:31 Patient Own Medication (Patient's Own Med) 1 ea DAILY ORAL 06/21/18 09:00 07/21/18 08:59 06/26/18 09:32 Patient Own Medication (Patient's Own Med) 1 ea DAILY ORAL 06/21/18 09:00 07/21/18 08:59 06/26/18 09:33 Potassium Chloride 100 ml @ 100 mls/hr Q1H IVPB 06/26/18 09:30 06/26/18 13:29 06/26/18 11:09 Ropinirole HCl (Requip) 0.25 mg THREE TIMES A DAY ORAL 06/20/18 18:00 07/20/18 17:59 06/26/18 09:33 Senna/Docusate Sodium (Jania-Colace) 1 tab BID PRN ORAL Constipation 06/21/18 10:00 07/21/18 09:59 Simethicone (Mylicon) 80 mg QIDPRN PRN ORAL GAS PAIN 06/24/18 13:00 07/24/18 12:59 Sodium Phosphate (Fleet's Sodium Phosl Enema) 133 ml DAILY PRN RECTAL Constipation 06/25/18 11:45 07/25/18 11:44 06/25/18 16:58 Warfarin Sodium (Coumadin per pharmacy) 1 ea DAILY PRN MISC Per rx protocol 06/20/18 16:30 07/20/18 16:29 Maria Guadalupe Cordero M.D. Jun 26, 2018 12:13
--- NOTE | 2018-06-26 15:10 | General Surgery Progress Note ---
General Surgery-Progress Note Subjective Symptoms: improved, tolerating diet, passing flatus, BM Additional Comments much more awake and responsive today. pain improved. no n/v/f/c. Objective Last 24 Hour Vital Signs Date Time Temp Pulse Resp B/P (MAP) Pulse Ox O2 Delivery O2 Flow Rate FiO2 06/26/18 12:00 97.1 80 18 130/75 (93) 96 06/26/18 09:00 Room Air Room Air 06/26/18 08:47 97.0 85 18 132/60 (84) 95 06/26/18 04:00 99.2 83 18 158/78 (104) 100 06/26/18 00:00 98.6 80 18 137/77 (97) 100 06/25/18 21:00 Room Air Room Air 06/25/18 20:00 99.2 81 18 148/80 (102) 100 06/25/18 16:00 97.9 92 20 111/87 (95) 98 I&O Intake and Output 06/25/18 06/26/18 19:00 07:00 Intake Total 1080 ml 520 ml Output Total 1300 ml Balance 1080 ml -780 ml Intake Oral 480 ml IV Total 600 ml 100 ml Other 420 ml Output Urine Total 1300 ml # Voids 5 # Bowel Movements 3 Drains: none Cardiovascular: RSR Respiratory: clear Abdomen: soft, distended, tenderness - minimal , present bowel sounds Extremities: no tenderness, no cyanosis Laboratory Tests Test 06/26/18 05:55 White Blood Count 9.6 K/UL (4.8-10.8) Red Blood Count 4.24 M/UL (4.20-5.40) Hemoglobin 12.5 G/DL (12.0-16.0) Hematocrit 37.8 % (37.0-47.0) Mean Corpuscular Volume 89 FL (80-99) Mean Corpuscular Hemoglobin 29.6 PG (27.0-31.0) Mean Corpuscular Hemoglobin Concent 33.2 G/DL (32.0-36.0) Red Cell Distribution Width 11.7 % (11.6-14.8) Platelet Count 258 K/UL (150-450) Mean Platelet Volume 6.2 FL (6.5-10.1) L Neutrophils (%) (Auto) 76.4 % (45.0-75.0) H Lymphocytes (%) (Auto) 11.6 % (20.0-45.0) L Monocytes (%) (Auto) 7.8 % (1.0-10.0) Eosinophils (%) (Auto) 3.7 % (0.0-3.0) H Basophils (%) (Auto) 0.6 % (0.0-2.0) Prothrombin Time 28.9 SEC (9.30-11.50) H Prothromb Time International Ratio 2.9 (0.9-1.1) H Sodium Level 144 MMOL/L (136-145) Potassium Level 2.9 MMOL/L (3.5-5.1) L Chloride Level 101 MMOL/L (98-107) Carbon Dioxide Level 44 MMOL/L (21-32) *H Anion Gap 1 mmol/L (5-15) L Blood Urea Nitrogen 8 mg/dL (7-18) Creatinine 0.6 MG/DL (0.55-1.30) Estimat Glomerular Filtration Rate mL/min (>60) Glucose Level 111 MG/DL (74-106) H Calcium Level 8.2 MG/DL (8.5-10.1) L Magnesium Level 1.7 MG/DL (1.8-2.4) L Plan Problems: (1) Acute pancreatitis Assessment & Plan: seen as radiographic finding and clinically symptoms can correlate lipase normal possible resolving trend labs will treat clinically Ct noted. worsening phlegmon/edema clinically improving and tolerating diet cont current care. if condition changes need to manage. not ready for d/c ct impressive (2) Leukocytosis Assessment & Plan: UTI? colitis/enteritis? pancreatitis resolved on Abx trend labs improving (3) Intractable abdominal pain Assessment & Plan: possibly related to duodenitis or pancreatitis labs noted CT noted will follow clinically serial exams diet as tolerated stable will consider d/c planing soon thank you Eliel Carlson Jun 26, 2018 15:10
[2018-06-26 16:27] VITALS: BP 130/60
[2018-06-26] MEDS: Cefepime HCl 1 GM in D5W 55 ML IVPB SCH (19:28)
[2018-06-26 20:00] VITALS: BP 134/65
[2018-06-26] MEDS: Donepezil 10mg tab ORAL SCH (21:22)
[2018-06-26] MEDS: Atorvastatin 20mg tab ORAL SCH (21:22)
[2018-06-27] VITALS: BP 145/67
[2018-06-27 04:00] VITALS: BP 109/53
[2018-06-27 07:17] LABS: INR 2.5 (0.9-1.1)
[2018-06-27 07:28] LABS: BASOPHILS % (AUTO) 0.7 % (0.0-2.0); EOSINOPHILS % (AUTO) 2.9 % (0.0-3.0); HEMATOCRIT 37.7 % (37.0-47.0); HEMOGLOBIN 12.5 G/DL (12.0-16.0); LYMPHOCYTES % (AUTO) 10.8 % (20.0-45.0); MEAN CORPUSCULAR VOLUME 90 FL (80-99); MONOCYTES % (AUTO) 7.8 % (1.0-10.0); NEUTROPHILS % (AUTO) 77.8 % (45.0-75.0); PLATELET COUNT 287 K/UL (150-450); RED BLOOD COUNT 4.18 M/UL (4.20-5.40); WHITE BLOOD COUNT 10.3 K/UL (4.8-10.8)
[2018-06-27 07:53] LABS: ALANINE AMINOTRANSFERASE 19 U/L (12-78); ALBUMIN 2.4 G/DL (3.4-5.0); ALBUMIN/GLOBULIN RATIO 0.5 (1.0-2.7); ALKALINE PHOSPHATASE 48 U/L (46-116); AMYLASE 38 U/L (25-115); ANION GAP 0 mmol/L (5-15); ASPARTATE AMINO TRANSFERASE 25 U/L (15-37); BILIRUBIN,TOTAL 0.2 MG/DL (0.2-1.0); BLOOD UREA NITROGEN 13 mg/dL (7-18); CALCIUM 8.8 MG/DL (8.5-10.1); CHLORIDE 102 MMOL/L (98-107); CREATININE 0.6 MG/DL (0.55-1.30); POTASSIUM 4.3 MMOL/L (3.5-5.1); SODIUM 143 MMOL/L (136-145)
[2018-06-27 07:55] LABS: CARBON DIOXIDE 41 MMOL/L (21-32)
[2018-06-27 08:00] VITALS: BP 138/69
--- NOTE | 2018-06-27 08:27 | General Progress Note ---
Assessment/Plan Problem List: (1) Pancreatic cyst ICD Codes: K86.2 - Cyst of pancreas SNOMED: 74736555 (2) Acute pancreatitis ICD Codes: K85.90 - Acute pancreatitis without necrosis or infection, unspecified SNOMED: 334616774 (3) Leukocytosis ICD Codes: D72.829 - Elevated white blood cell count, unspecified SNOMED: 561506648, 743190333 Qualifiers: Qualified Codes: D72.829 - Elevated white blood cell count, unspecified (4) Cholelithiasis ICD Codes: K80.20 - Calculus of gallbladder without cholecystitis without obstruction SNOMED: 028130180 Qualifiers: Qualified Codes: K80.20 - Calculus of gallbladder without cholecystitis without obstruction (5) Duodenitis ICD Codes: K29.80 - Duodenitis without bleeding SNOMED: 68211695 (6) Constipation ICD Codes: K59.00 - Constipation, unspecified SNOMED: 79842054 (7) S/P CABG (coronary artery bypass graft) ICD Codes: Z95.1 - Presence of aortocoronary bypass graft SNOMED: 67576291, 855204834, 171946927 Assessment/Plan CT AP reviewed >> Findings compatible with acute pancreatitis of the pancreatic head and uncinate, also previously reported. No evidence of necrosis or new peripancreatic fluid collection demonstrated. abdominal distention most likely due to pancreatitis ? due to gallstones MRCP pending on diet with minimal po intake +BM IV hydration encourage turning q2 hours and ambulation as tolerated zofran prn fu labs, CA19-9, lipid panel needs outpatient EGD/colonoscopy screening, EUS to evaluate pancreatic cyst. dc protonix add pancrease Subjective ROS Limited/Unobtainable: Yes Allergies: Coded Allergies: No Known Allergies (Unverified , 06/20/18) Subjective abd pain better Objective Last 24 Hour Vital Signs Date Time Temp Pulse Resp B/P (MAP) Pulse Ox O2 Delivery O2 Flow Rate FiO2 06/27/18 08:00 97.3 70 19 138/69 (92) 99 06/27/18 04:00 97.0 68 16 109/53 (71) 100 06/27/18 00:00 98.1 69 18 145/67 (93) 94 06/26/18 21:00 Nasal Cannula 2.0 Nasal Cannula 2.0 06/26/18 20:00 98.1 68 17 134/65 (88) 98 06/26/18 16:27 98.2 69 18 130/60 (83) 100 06/26/18 12:00 97.1 80 18 130/75 (93) 96 06/26/18 09:00 Room Air Room Air 06/26/18 08:47 97.0 85 18 132/60 (84) 95 Intake and Output 06/26/18 06/27/18 19:00 07:00 Intake Total 600 ml 255 ml Balance 600 ml 255 ml Intake Oral 600 ml IV Total 255 ml # Voids 6 3 # Bowel Movements 3 1 Laboratory Tests 06/27/18 06:25: White Blood Count 10.3, Red Blood Count 4.18L, Hemoglobin 12.5, Hematocrit 37.7 , Mean Corpuscular Volume 90, Mean Corpuscular Hemoglobin 29.9, Mean Corpuscular Hemoglobin Concent 33.1, Red Cell Distribution Width 12.0, Platelet Count 287, Mean Platelet Volume 6.3L, Neutrophils (%) (Auto) 77.8H, Lymphocytes (%) (Auto) 10.8L, Monocytes (%) (Auto) 7.8, Eosinophils (%) (Auto) 2.9, Basophils (%) (Auto) 0.7, Prothrombin Time 24.9H, Prothromb Time International Ratio 2.5H, Sodium Level 143, Potassium Level 4.3, Chloride Level 102, Carbon Dioxide Level 41*H, Anion Gap 0L, Blood Urea Nitrogen 13, Creatinine 0.6, Estimat Glomerular Filtration Rate , Glucose Level 126H, Lactic Acid Level 0.50 , Calcium Level 8.8, Total Bilirubin 0.2, Aspartate Amino Transf (AST/SGOT) 25, Alanine Aminotransferase (ALT/SGPT) 19, Alkaline Phosphatase 48, Total Protein 7.3, Albumin 2.4L, Globulin 4.9, Albumin/Globulin Ratio 0.5L, Amylase Level 38, Lipase 188 Height (Feet): 5 Height (Inches): 6.00 Weight (Pounds): 168 General Appearance: alert EENT: normal ENT inspection Neck: supple Cardiovascular: normal rate Respiratory/Chest: lungs clear Abdomen: soft, hypoactive bowel sounds Extremities: non-tender Heath Garcia MD Jun 27, 2018 08:27
--- NOTE | 2018-06-27 08:37 | General Progress Note ---
Assessment/Plan Problem List: (1) Abdominal distention Assessment & Plan: likely due to pancreatitis, GS? PENDING MRCP pancrealipase added per GI appreciate GI recs monitor may take time to improve appreciate gi and surgery recs ICD Codes: R14.0 - Abdominal distension (gaseous) SNOMED: 34962162 (2) Acute pancreatitis Assessment & Plan: Lipase 309 CT abd/pelvis reviewed, showing concerns for pancreatitis gen surg recs much appreciated ADAT, will try regular diet IVF prn antiemetics pain control monitor closely repeat ct showing fat stranding with pseudocyst , pending MRCP , may need outpt EUS for cyst evaluation ICD Codes: K85.90 - Acute pancreatitis without necrosis or infection, unspecified SNOMED: 790782664 (3) Intractable nausea and vomiting Assessment & Plan: prn antiemetics due to pancreatitis bowel rest pain control stable ICD Codes: R11.2 - Nausea with vomiting, unspecified SNOMED: 059376333 (4) Intractable abdominal pain Assessment & Plan: pain control due to pancreatitis/duodenitis/severe constipation continue bowel care, having a lot of BMs overnight however abd still distended GI consulted for evaluation as well, may need disimpaction ICD Codes: R10.9 - Unspecified abdominal pain SNOMED: 86364015, 850457388 (5) Duodenitis Assessment & Plan: per ct read cefepime flagyl bcx x 2 sent ICD Codes: K29.80 - Duodenitis without bleeding SNOMED: 99645277 (6) Leukocytosis Assessment & Plan: wbc 14 on admit, now improving not septic criteria abx fluids pain control gen surg consulted ICD Codes: D72.829 - Elevated white blood cell count, unspecified SNOMED: 680457809, 104418426 Qualifiers: Qualified Codes: D72.829 - Elevated white blood cell count, unspecified (7) CAD (coronary artery disease) Assessment & Plan: resume home meds stable ICD Codes: I25.10 - Atherosclerotic heart disease of [place] coronary artery without angina pectoris SNOMED: 91262314 Qualifiers: Qualified Codes: I25.10 - Atherosclerotic heart disease of [place] coronary artery without angina pectoris (8) S/P CABG (coronary artery bypass graft) Assessment & Plan: resume home meds when arrives stable ICD Codes: Z95.1 - Presence of aortocoronary bypass graft SNOMED: 14902102, 787202766, 730448493 (9) Constipation Assessment & Plan: continue with bowel care likely main cause of her sx appreciate surg recs Gi consulted, may need manual disimpaction ICD Codes: K59.00 - Constipation, unspecified SNOMED: 36531176 (10) Weakness generalized Assessment & Plan: is able to ambulate however poor effort discussed with nursing to ambulate patient cont ambulating ICD Codes: R53.1 - Weakness SNOMED: 45162704 (11) Failure to thrive Assessment & Plan: advance diet as tolerated will try to give regular diet prn antiemetics pain control appreciate gen surg recs 2/2 severe acute pancreatitis with pseudocyst noted on ct. SNOMED: 66715289 (12) Pseudocyst of pancreas Assessment & Plan: will need outpt f/u rrepeat ct in 6 weeks outpt pending MRCP will need outpt EUS for cyst evaluation ICD Codes: K86.3 - Pseudocyst of pancreas SNOMED: 182387440 (13) Pleural effusion Assessment & Plan: seems like patient did not receive enough diuresis reviewed cxr b/l pleural effusions noted inc diuresis dec fluid intake monitor ICD Codes: J90 - Pleural effusion, not elsewhere classified SNOMED: 74397227 (14) Hypokalemia Assessment & Plan: K 2.9 yesterday, replenished, Now K 4.3 continue to monitor ICD Codes: E87.6 - Hypokalemia SNOMED: 88220796 Status: unchanged Assessment/Plan ppx: coumadin, scd diet:clear liquid diet as tolerated I have have spent over 41 minutes regarding patient care and counseling and 22 minutes of face to face time patient's case has been complicated by acute severe pancreatitis, repeat ct scan still showing inflammatory pancreatic changes along with pseudocyst will need outpt repeat ct scan in 6 weeks Subjective Date patient seen: Jun 27, 2018 Time patient seen: 08:34 Allergies: Coded Allergies: No Known Allergies (Unverified , 06/20/18) Subjective f/u intractable abdominal pain, intractable nausea/vomiting, pancreatitis, duodenitis, constipation, pleural effusions still having nausea and occasional vomiting, tolerates liquid diet, eats very little currently due to abdominal pain noted to have pancreatic pseudocyst , GI following, will need EUS outpt for cyst eval MRCP pending as well no acute events overnight no fevers/chills/diarrhea/constipation ROS: 12 point ros reviewed and negative except for the above Objective Last 24 Hour Vital Signs Date Time Temp Pulse Resp B/P (MAP) Pulse Ox O2 Delivery O2 Flow Rate FiO2 06/27/18 08:00 97.3 70 19 138/69 (92) 99 06/27/18 04:00 97.0 68 16 109/53 (71) 100 06/27/18 00:00 98.1 69 18 145/67 (93) 94 06/26/18 21:00 Nasal Cannula 2.0 Nasal Cannula 2.0 06/26/18 20:00 98.1 68 17 134/65 (88) 98 06/26/18 16:27 98.2 69 18 130/60 (83) 100 06/26/18 12:00 97.1 80 18 130/75 (93) 96 06/26/18 09:00 Room Air Room Air 06/26/18 08:47 97.0 85 18 132/60 (84) 95 Intake and Output 06/26/18 06/27/18 19:00 07:00 Intake Total 600 ml 255 ml Balance 600 ml 255 ml Intake Oral 600 ml IV Total 255 ml # Voids 6 3 # Bowel Movements 3 1 Laboratory Tests 06/27/18 06:25: White Blood Count 10.3, Red Blood Count 4.18L, Hemoglobin 12.5, Hematocrit 37.7 , Mean Corpuscular Volume 90, Mean Corpuscular Hemoglobin 29.9, Mean Corpuscular Hemoglobin Concent 33.1, Red Cell Distribution Width 12.0, Platelet Count 287, Mean Platelet Volume 6.3L, Neutrophils (%) (Auto) 77.8H, Lymphocytes (%) (Auto) 10.8L, Monocytes (%) (Auto) 7.8, Eosinophils (%) (Auto) 2.9, Basophils (%) (Auto) 0.7, Prothrombin Time 24.9H, Prothromb Time International Ratio 2.5H, Sodium Level 143, Potassium Level 4.3, Chloride Level 102, Carbon Dioxide Level 41*H, Anion Gap 0L, Blood Urea Nitrogen 13, Creatinine 0.6, Estimat Glomerular Filtration Rate , Glucose Level 126H, Lactic Acid Level 0.50 , Calcium Level 8.8, Total Bilirubin 0.2, Aspartate Amino Transf (AST/SGOT) 25, Alanine Aminotransferase (ALT/SGPT) 19, Alkaline Phosphatase 48, Total Protein 7.3, Albumin 2.4L, Globulin 4.9, Albumin/Globulin Ratio 0.5L, Amylase Level 38, Lipase 188 Height (Feet): 5 Height (Inches): 6.00 Weight (Pounds): 168 General Appearance: lethargic, mild distress EENT: PERRL/EOMI, normal ENT inspection, TMs normal Neck: non-tender, normal alignment, supple Cardiovascular: normal peripheral pulses, normal rate, regular rhythm Respiratory/Chest: chest wall non-tender, lungs clear, normal breath sounds, no respiratory distress, no accessory muscle use Abdomen: normal bowel sounds, non tender, soft, no organomegaly, no mass, distended Extremities: normal range of motion, non-tender, normal inspection 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
[2018-06-27] MEDS: Pancrease Cap ORAL SCH ×3 (09:11→17:06)
[2018-06-27] MEDS: Aspirin Baby 81mg ORAL SCH (09:11)
[2018-06-27] MEDS: rOPINIRole 0.25mg tab ORAL SCH ×3 (09:11→17:06)
[2018-06-27] MEDS: Amiodarone 200mg tab ORAL SCH (09:12)
[2018-06-27] MEDS: NORETHINDRONE ACETATE ORAL SCH (09:12)
[2018-06-27] MEDS: OMEPRAZOLE 20MG ORAL SCH (09:12)
[2018-06-27] MEDS: ETHINYL ESTRADIOL ORAL SCH (09:12)
[2018-06-27] MEDS: Docusate 100mg cap ORAL SCH ×3 (09:12→17:06)
[2018-06-27] MEDS ORDERED: Tubing IV Secondary IV ONE (09:47)
[2018-06-27 12:00] VITALS: BP 138/69
--- NOTE | 2018-06-27 13:26 | General Surgery Progress Note ---
General Surgery-Progress Note Subjective Additional Comments labs improved. clinically looks improved. states that has no pain sometimes but then tells family she has pain at other times. history not consistent and unfortunately not sure if patient a good historian Objective Last 24 Hour Vital Signs Date Time Temp Pulse Resp B/P (MAP) Pulse Ox O2 Delivery O2 Flow Rate FiO2 06/27/18 12:00 98.2 70 19 138/69 (92) 99 06/27/18 09:00 Nasal Cannula 2.0 Nasal Cannula 2.0 06/27/18 08:00 97.3 70 19 138/69 (92) 99 06/27/18 04:00 97.0 68 16 109/53 (71) 100 06/27/18 00:00 98.1 69 18 145/67 (93) 94 06/26/18 21:00 Nasal Cannula 2.0 Nasal Cannula 2.0 06/26/18 20:00 98.1 68 17 134/65 (88) 98 06/26/18 16:27 98.2 69 18 130/60 (83) 100 I&O Intake and Output 06/26/18 06/27/18 19:00 07:00 Intake Total 600 ml 255 ml Balance 600 ml 255 ml Intake Oral 600 ml IV Total 255 ml # Voids 6 3 # Bowel Movements 3 1 Cardiovascular: RSR Respiratory: clear Abdomen: soft, distended, non-tender, present bowel sounds Extremities: no cyanosis Laboratory Tests Test 06/27/18 06:25 White Blood Count 10.3 K/UL (4.8-10.8) Red Blood Count 4.18 M/UL (4.20-5.40) L Hemoglobin 12.5 G/DL (12.0-16.0) Hematocrit 37.7 % (37.0-47.0) Mean Corpuscular Volume 90 FL (80-99) Mean Corpuscular Hemoglobin 29.9 PG (27.0-31.0) Mean Corpuscular Hemoglobin Concent 33.1 G/DL (32.0-36.0) Red Cell Distribution Width 12.0 % (11.6-14.8) Platelet Count 287 K/UL (150-450) Mean Platelet Volume 6.3 FL (6.5-10.1) L Neutrophils (%) (Auto) 77.8 % (45.0-75.0) H Lymphocytes (%) (Auto) 10.8 % (20.0-45.0) L Monocytes (%) (Auto) 7.8 % (1.0-10.0) Eosinophils (%) (Auto) 2.9 % (0.0-3.0) Basophils (%) (Auto) 0.7 % (0.0-2.0) Prothrombin Time 24.9 SEC (9.30-11.50) H Prothromb Time International Ratio 2.5 (0.9-1.1) H Sodium Level 143 MMOL/L (136-145) Potassium Level 4.3 MMOL/L (3.5-5.1) Chloride Level 102 MMOL/L (98-107) Carbon Dioxide Level 41 MMOL/L (21-32) *H Anion Gap 0 mmol/L (5-15) L Blood Urea Nitrogen 13 mg/dL (7-18) Creatinine 0.6 MG/DL (0.55-1.30) Estimat Glomerular Filtration Rate mL/min (>60) Glucose Level 126 MG/DL (74-106) H Lactic Acid Level 0.50 mmol/L (0.4-2.0) Calcium Level 8.8 MG/DL (8.5-10.1) Total Bilirubin 0.2 MG/DL (0.2-1.0) Aspartate Amino Transf (AST/SGOT) 25 U/L (15-37) Alanine Aminotransferase (ALT/SGPT) 19 U/L (12-78) Alkaline Phosphatase 48 U/L (46-116) Total Protein 7.3 G/DL (6.4-8.2) Albumin 2.4 G/DL (3.4-5.0) L Globulin 4.9 g/dL Albumin/Globulin Ratio 0.5 (1.0-2.7) L Amylase Level 38 U/L (25-115) Lipase 188 U/L (73-393) Plan Problems: (1) Acute pancreatitis Assessment & Plan: seen as radiographic finding and clinically symptoms can correlate lipase normal possible resolving trend labs will treat clinically Ct noted. worsening phlegmon/edema clinically improving and tolerating diet cont current care. if condition changes need to manage. not ready for d/c ct impressive MRCP ordered (2) Leukocytosis Assessment & Plan: UTI? colitis/enteritis? pancreatitis resolved on Abx trend labs improving (3) Intractable abdominal pain Assessment & Plan: possibly related to duodenitis or pancreatitis labs noted CT noted will follow clinically serial exams diet as tolerated stable MRCP tomorrow thank you Eliel Carlson Jun 27, 2018 13:26
[2018-06-27 15:47] VITALS: BP 133/62
[2018-06-27] MEDS ORDERED: Warfarin Sodium 1mg ORAL SCH (17:00)
[2018-06-27] MEDS: Vitamin D 50,000 units cap ORAL SCH (17:06)
[2018-06-27 20:00] VITALS: BP 141/73
[2018-06-27] MEDS: Donepezil 10mg tab ORAL SCH (22:04)
[2018-06-27] MEDS: Atorvastatin 20mg tab ORAL SCH (22:04)
[2018-06-28] VITALS: BP 126/64
[2018-06-28 04:00] VITALS: BP 132/67
[2018-06-28 07:40] LABS: BASOPHILS % (AUTO) 0.9 % (0.0-2.0); EOSINOPHILS % (AUTO) 3.4 % (0.0-3.0); HEMATOCRIT 41.3 % (37.0-47.0); HEMOGLOBIN 13.7 G/DL (12.0-16.0); LYMPHOCYTES % (AUTO) 14.6 % (20.0-45.0); MEAN CORPUSCULAR VOLUME 90 FL (80-99); MONOCYTES % (AUTO) 6.7 % (1.0-10.0); NEUTROPHILS % (AUTO) 74.3 % (45.0-75.0); PLATELET COUNT 318 K/UL (150-450); RED CELL DISTRIBUTION WIDTH 12.2 % (11.6-14.8)
[2018-06-28 07:46] LABS: INR 1.8 (0.9-1.1)
[2018-06-28 07:57] LABS: ALANINE AMINOTRANSFERASE 18 U/L (12-78); ALBUMIN 2.7 G/DL (3.4-5.0); ALBUMIN/GLOBULIN RATIO 0.5 (1.0-2.7); ALKALINE PHOSPHATASE 46 U/L (46-116); ANION GAP 0 mmol/L (5-15); ASPARTATE AMINO TRANSFERASE 22 U/L (15-37); BILIRUBIN,TOTAL 0.2 MG/DL (0.2-1.0); BLOOD UREA NITROGEN 18 mg/dL (7-18); CALCIUM 9.5 MG/DL (8.5-10.1); CHLORIDE 100 MMOL/L (98-107); CREATININE 0.6 MG/DL (0.55-1.30); POTASSIUM 4.8 MMOL/L (3.5-5.1); SODIUM 141 MMOL/L (136-145)
[2018-06-28 08:00] VITALS: BP 130/75
[2018-06-28 08:00] LABS: CARBON DIOXIDE 41 MMOL/L (21-32)
--- NOTE | 2018-06-28 08:20 | General Progress Note ---
Assessment/Plan Problem List: (1) Abdominal distention Assessment & Plan: likely due to pancreatitis, GS? PENDING MRCP pancrealipase added per GI appreciate GI recs monitor may take time to improve appreciate gi and surgery recs ICD Codes: R14.0 - Abdominal distension (gaseous) SNOMED: 54256501 (2) Acute pancreatitis Assessment & Plan: Lipase 309 CT abd/pelvis reviewed, showing concerns for pancreatitis gen surg recs much appreciated ADAT, will try regular diet IVF prn antiemetics pain control monitor closely repeat ct showing fat stranding with pseudocyst , pending MRCP , may need outpt EUS for cyst evaluation ICD Codes: K85.90 - Acute pancreatitis without necrosis or infection, unspecified SNOMED: 651284170 (3) Intractable nausea and vomiting Assessment & Plan: prn antiemetics due to pancreatitis bowel rest pain control stable ICD Codes: R11.2 - Nausea with vomiting, unspecified SNOMED: 313822917 Qualifiers: Qualified Codes: G43.A1 - Cyclical vomiting, intractable (4) Intractable abdominal pain Assessment & Plan: pain control due to pancreatitis/duodenitis/severe constipation continue bowel care, having a lot of BMs overnight however abd still distended GI consulted for evaluation as well, may need disimpaction ICD Codes: R10.9 - Unspecified abdominal pain SNOMED: 00011261, 095404077 (5) Duodenitis Assessment & Plan: per ct read cefepime flagyl bcx x 2 sent ICD Codes: K29.80 - Duodenitis without bleeding SNOMED: 37034575 (6) Leukocytosis Assessment & Plan: wbc 14 on admit, now improving not septic criteria abx fluids pain control gen surg consulted ICD Codes: D72.829 - Elevated white blood cell count, unspecified SNOMED: 389404100, 385872375 Qualifiers: Qualified Codes: D72.829 - Elevated white blood cell count, unspecified (7) CAD (coronary artery disease) Assessment & Plan: resume home meds stable ICD Codes: I25.10 - Atherosclerotic heart disease of [place] coronary artery without angina pectoris SNOMED: 26974738 Qualifiers: Qualified Codes: I25.10 - Atherosclerotic heart disease of [place] coronary artery without angina pectoris (8) S/P CABG (coronary artery bypass graft) Assessment & Plan: resume home meds when arrives stable ICD Codes: Z95.1 - Presence of aortocoronary bypass graft SNOMED: 40924536, 190499155, 737580336 (9) Constipation Assessment & Plan: continue with bowel care likely main cause of her sx appreciate surg recs Gi consulted, may need manual disimpaction ICD Codes: K59.00 - Constipation, unspecified SNOMED: 91509156 Qualifiers: Qualified Codes: K59.03 - Drug induced constipation (10) Weakness generalized Assessment & Plan: is able to ambulate however poor effort discussed with nursing to ambulate patient cont ambulating ICD Codes: R53.1 - Weakness SNOMED: 58003025 (11) Failure to thrive Assessment & Plan: advance diet as tolerated will try to give regular diet prn antiemetics pain control appreciate gen surg recs 2/2 severe acute pancreatitis with pseudocyst noted on ct. SNOMED: 29239690 Qualifiers: Qualified Codes: R62.7 - Adult failure to thrive (12) Pseudocyst of pancreas Assessment & Plan: will need outpt f/u rrepeat ct in 6 weeks outpt pending MRCP will need outpt EUS for cyst evaluation ICD Codes: K86.3 - Pseudocyst of pancreas SNOMED: 157801319 (13) Pleural effusion Assessment & Plan: seems like patient did not receive enough diuresis reviewed cxr b/l pleural effusions noted inc diuresis dec fluid intake monitor ICD Codes: J90 - Pleural effusion, not elsewhere classified SNOMED: 48941848 (14) Hypokalemia Assessment & Plan: K 2.9 yesterday, replenished, Now K 4.3 continue to monitor ICD Codes: E87.6 - Hypokalemia SNOMED: 47498608 Status: stable Assessment/Plan ppx: coumadin, scd diet:clear liquid diet as tolerated I have have spent over 31 minutes regarding patient care and counseling and 18 minutes of face to face time patient's case has been complicated by acute severe pancreatitis, repeat ct scan still showing inflammatory pancreatic changes along with pseudocyst will need outpt repeat ct scan in 6 weeks Subjective Date patient seen: Jun 28, 2018 Time patient seen: 08:17 Allergies: Coded Allergies: No Known Allergies (Unverified , 06/20/18) Subjective f/u intractable abdominal pain, intractable nausea/vomiting, pancreatitis, duodenitis, constipation, pleural effusions noted to have pancreatic pseudocyst , GI following, will need EUS outpt for cyst eval MRCP pending as well symptomatically improving very slowly, states she ate yesterday still feeling a bit nauseous with abdominal pain, feeling weak no acute events overnight no fevers/chills/diarrhea/constipation ROS: 12 point ros reviewed and negative except for the above Objective Last 24 Hour Vital Signs Date Time Temp Pulse Resp B/P (MAP) Pulse Ox O2 Delivery O2 Flow Rate FiO2 06/28/18 04:00 97.5 70 19 132/67 (88) 93 06/28/18 00:00 97.6 67 18 126/64 (84) 98 06/27/18 21:00 Nasal Cannula 2.0 Nasal Cannula 2.0 06/27/18 20:00 97.2 67 17 141/73 (95) 100 06/27/18 15:47 97.7 72 20 133/62 (85) 96 06/27/18 12:00 98.2 70 19 138/69 (92) 99 06/27/18 09:00 Nasal Cannula 2.0 Nasal Cannula 2.0 Intake and Output 06/27/18 06/28/18 19:00 07:00 Intake Total 720 ml Balance 720 ml Intake Oral 720 ml # Voids 6 2 # Bowel Movements 4 1 Laboratory Tests 06/28/18 07:14: White Blood Count 11.0H, Red Blood Count 4.60, Hemoglobin 13.7, Hematocrit 41.3 , Mean Corpuscular Volume 90, Mean Corpuscular Hemoglobin 29.7, Mean Corpuscular Hemoglobin Concent 33.1, Red Cell Distribution Width 12.2, Platelet Count 318, Mean Platelet Volume 6.2L, Neutrophils (%) (Auto) 74.3, Lymphocytes ( %) (Auto) 14.6L, Monocytes (%) (Auto) 6.7, Eosinophils (%) (Auto) 3.4H, Basophils (%) (Auto) 0.9, Prothrombin Time 18.8H, Prothromb Time International Ratio 1.8H, Sodium Level 141, Potassium Level 4.8, Chloride Level 100, Carbon Dioxide Level 41*H, Anion Gap 0L, Blood Urea Nitrogen 18, Creatinine 0.6, Estimat Glomerular Filtration Rate , Glucose Level 118H, Calcium Level 9.5, Total Bilirubin 0.2, Aspartate Amino Transf (AST/SGOT) 22, Alanine Aminotransferase (ALT/SGPT) 18, Alkaline Phosphatase 46, Total Protein 7.7, Albumin 2.7L, Globulin 5.0, Albumin/Globulin Ratio 0.5L Height (Feet): 5 Height (Inches): 6.00 Weight (Pounds): 168 General Appearance: WD/WN, no apparent distress, alert EENT: PERRL/EOMI, normal ENT inspection, TMs normal, pharynx normal Neck: non-tender, normal alignment, supple, normal inspection Cardiovascular: normal peripheral pulses, normal rate, regular rhythm Respiratory/Chest: chest wall non-tender, lungs clear, normal breath sounds, no respiratory distress, no accessory muscle use Abdomen: normal bowel sounds, soft, no organomegaly, no mass, other - milt ttp midepigastric region Extremities: normal range of motion, non-tender, normal inspection 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
[2018-06-28] MEDS: Docusate 100mg cap ORAL SCH ×3 (08:35→17:43)
[2018-06-28] MEDS: Pancrease Cap ORAL SCH ×3 (08:35→17:43)
[2018-06-28] MEDS: rOPINIRole 0.25mg tab ORAL SCH ×3 (08:35→17:43)
[2018-06-28] MEDS: Amiodarone 200mg tab ORAL SCH (08:35)
[2018-06-28] MEDS: Aspirin Baby 81mg ORAL SCH (08:35)
[2018-06-28] MEDS: ETHINYL ESTRADIOL ORAL SCH (08:36)
[2018-06-28] MEDS: NORETHINDRONE ACETATE ORAL SCH (08:36)
[2018-06-28] MEDS: OMEPRAZOLE 20MG ORAL SCH (08:36)
--- NOTE | 2018-06-28 10:59 | GI Progress Note ---
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 - Pseudocyst of pancreas SNOMED: 006014306 (2) Abdominal bloating ICD Codes: R14.0 - Abdominal distension (gaseous) SNOMED: 261803525 (3) Ileus ICD Codes: K56.7 - Ileus, unspecified SNOMED: 230551199 (4) Constipation ICD Codes: K59.00 - Constipation, unspecified SNOMED: 46533421 Qualifiers: Qualified Codes: K59.03 - Drug induced constipation (5) Abdominal pain ICD Codes: R10.9 - Unspecified abdominal pain SNOMED: 46580733 Qualifiers: Qualified Codes: R10.84 - Generalized abdominal pain (6) Acute pancreatitis ICD Codes: K85.90 - Acute pancreatitis without necrosis or infection, unspecified SNOMED: 254913261 Status: stable Status Narrative Discussed with Dr. Garcia. Assessment/Plan CT AP reviewed >> Findings compatible with acute pancreatitis of the pancreatic head and uncinate, also previously reported. No evidence of necrosis or new peripancreatic fluid collection demonstrated. abdominal distention most likely due to pancreatitis ? due to gallstones MRCP pending on diet with minimal po intake +BM IV hydration encourage turning q2 hours and ambulation as tolerated zofran prn fu labs, CA19-9, lipid panel needs outpatient EGD/colonoscopy screening, EUS to evaluate pancreatic cyst. dc protonix add Pancrease The patient was seen and examined at bedside and all new and available data was reviewed in the patients chart. I agree with the above findings, impression and plan. (Patient seen earlier today. Signature stamp does not reflect patient encounter time.). - Heath Garcia MD Subjective Subjective abdominal bloating Objective Last 24 Hour Vital Signs Date Time Temp Pulse Resp B/P (MAP) Pulse Ox O2 Delivery O2 Flow Rate FiO2 06/28/18 08:00 97.9 78 20 130/75 (93) 93 06/28/18 04:00 97.5 70 19 132/67 (88) 93 06/28/18 00:00 97.6 67 18 126/64 (84) 98 06/27/18 21:00 Nasal Cannula 2.0 Nasal Cannula 2.0 06/27/18 20:00 97.2 67 17 141/73 (95) 100 12/2/18 15:47 97.7 72 20 133/62 (85) 96 06/27/18 12:00 98.2 70 19 138/69 (92) 99 Intake and Output 06/27/18 06/28/18 19:00 07:00 Intake Total 720 ml Balance 720 ml Intake Oral 720 ml # Voids 6 2 # Bowel Movements 4 1 Laboratory Tests Test 06/28/18 07:14 White Blood Count 11.0 K/UL (4.8-10.8) H Red Blood Count 4.60 M/UL (4.20-5.40) Hemoglobin 13.7 G/DL (12.0-16.0) Hematocrit 41.3 % (37.0-47.0) Mean Corpuscular Volume 90 FL (80-99) Mean Corpuscular Hemoglobin 29.7 PG (27.0-31.0) Mean Corpuscular Hemoglobin Concent 33.1 G/DL (32.0-36.0) Red Cell Distribution Width 12.2 % (11.6-14.8) Platelet Count 318 K/UL (150-450) Mean Platelet Volume 6.2 FL (6.5-10.1) L Neutrophils (%) (Auto) 74.3 % (45.0-75.0) Lymphocytes (%) (Auto) 14.6 % (20.0-45.0) L Monocytes (%) (Auto) 6.7 % (1.0-10.0) Eosinophils (%) (Auto) 3.4 % (0.0-3.0) H Basophils (%) (Auto) 0.9 % (0.0-2.0) Prothrombin Time 18.8 SEC (9.30-11.50) H Prothromb Time International Ratio 1.8 (0.9-1.1) H Sodium Level 141 MMOL/L (136-145) Potassium Level 4.8 MMOL/L (3.5-5.1) Chloride Level 100 MMOL/L (98-107) Carbon Dioxide Level 41 MMOL/L (21-32) *H Anion Gap 0 mmol/L (5-15) L Blood Urea Nitrogen 18 mg/dL (7-18) Creatinine 0.6 MG/DL (0.55-1.30) Estimat Glomerular Filtration Rate mL/min (>60) Glucose Level 118 MG/DL (74-106) H Calcium Level 9.5 MG/DL (8.5-10.1) Total Bilirubin 0.2 MG/DL (0.2-1.0) Aspartate Amino Transf (AST/SGOT) 22 U/L (15-37) Alanine Aminotransferase (ALT/SGPT) 18 U/L (12-78) Alkaline Phosphatase 46 U/L (46-116) Total Protein 7.7 G/DL (6.4-8.2) Albumin 2.7 G/DL (3.4-5.0) L Globulin 5.0 g/dL Albumin/Globulin Ratio 0.5 (1.0-2.7) L Height (Feet): 5 Height (Inches): 6.00 Weight (Pounds): 168 General Appearance: WD/WN, no apparent distress, alert Cardiovascular: normal rate Respiratory/Chest: normal breath sounds, no respiratory distress Abdominal Exam: normal bowel sounds, non tender, soft Extremities: normal range of motion, non-tender Vannessa Pizarro NP Jun 28, 2018 10:59
[2018-06-28 12:00] VITALS: BP 110/62
--- NOTE | 2018-06-28 12:34 | Infectious Diseases Prog Note ---
Assessment/Plan Assessment/Plan Abx: Cefepime 06/20- Flagyl 06/20- Assessment: Acute pancreatitis -06/24 CT abd/p: : Findings compatible with acute pancreatitis of the pancreatic head and uncinate, also previously reported. There is slight progression of phlegmon along the adjacent mesenteric root. Extensive disease otherwise similar to previous exam. No evidence of necrosis or new peripancreatic fluid collection demonstrated. Small cystic lesions versus multilobulated single lesion within the in segment 8 process of the pancreas. This may reflect an old pseudocyst or a branch duct intraductal papillary mucinous neoplasm. Inflammatory changes in the pelvis with stranding of the pelvic fat. These are nonspecific, may be related to the pancreatic inflammation (although somewhat remote from such),, or could indicate pelvic inflammatory changes either of the uterus/ovaries or rectum. Mild distal rectal wall thickening, may be artifact of under distention, but could indicate proctitis and possibly explain the above findings -06/20 Abd US: Cholelithiasis, also described on recent CT scan. Mildly ectatic main pancreatic duct, significance uncertain. Note patient has diagnosis of pancreatitis on recent CT. 18 x 17 mm cyst within the uncinate process of the pancreas. Given history of pancreatitis, likely a small pseudocyst. However, a cystic neoplasm such as branch duct intraductal papillary mucinous neoplasm is also a possibility -06/20 CT abd/p : Peripancreatic infiltrative changes with edema of the pancreatic head and uncinate process, as well as reactive wall thickening of the adjacent duodenum. Findings are most likely due to an acute pancreatitis. Please correlate with serum pancreatic enzymes. A primary infectious/ inflammatory duodenitis is less likely. Dilated pancreatic side duct or 2 cm cyst seen within the uncinate process. Cholelithiasis, without evidence of biliary obstruction. Low grade fever, SP Leukocytosis, mild recurrent -Bcx Neg -u/a neg -Cdiff neg CAD s/p CABG valve surgery (details unclear) Plan: -Continue to monitor off abx -12/ SP Cefepime and Flagyl #7 -f/u cx -Monitor CBC/CMP, temperatures -Sx f/u -Aspiration precautions -f/u MRCP Thank you for this consultation. Will continue to follow along with you. Discussed with RN. Subjective Allergies: Coded Allergies: No Known Allergies (Unverified , 06/20/18) Subjective afebrile mild leukocytosis abd pain improving off abx now MRCP p Objective Vital Signs Last 24 Hour Vital Signs Date Time Temp Pulse Resp B/P (MAP) Pulse Ox O2 Delivery O2 Flow Rate FiO2 06/28/18 09:00 Nasal Cannula 2.0 Nasal Cannula 2.0 06/28/18 08:00 97.9 78 20 130/75 (93) 93 06/28/18 04:00 97.5 70 19 132/67 (88) 93 06/28/18 00:00 97.6 67 18 126/64 (84) 98 06/27/18 21:00 Nasal Cannula 2.0 Nasal Cannula 2.0 06/27/18 20:00 97.2 67 17 141/73 (95) 100 06/27/18 15:47 97.7 72 20 133/62 (85) 96 Height (Feet): 5 Height (Inches): 6.00 Weight (Pounds): 168 Objective General Appearance: WD/WN, alert, moderate distress Lines, tubes and drains: peripheral HEENT: normocephalic, atraumatic, anicteric, mucous membranes moist, PERRL Neck: non-tender, normal alignment, supple, normal inspection Respiratory/Chest: chest wall non-tender, lungs clear, normal breath sounds, no respiratory distress, no accessory muscle use Cardiovascular/Chest: normal peripheral pulses Abdomen: normal bowel sounds, soft, no organomegaly, no mass, tender - midepigastric ttp Extremities: normal range of motion, non-tender, normal inspection, no calf tenderness, normal capillary refill Skin Exam: normal pigmentation, warm/dry Laboratory Tests Test 06/28/18 07:14 White Blood Count 11.0 K/UL (4.8-10.8) H Red Blood Count 4.60 M/UL (4.20-5.40) Hemoglobin 13.7 G/DL (12.0-16.0) Hematocrit 41.3 % (37.0-47.0) Mean Corpuscular Volume 90 FL (80-99) Mean Corpuscular Hemoglobin 29.7 PG (27.0-31.0) Mean Corpuscular Hemoglobin Concent 33.1 G/DL (32.0-36.0) Red Cell Distribution Width 12.2 % (11.6-14.8) Platelet Count 318 K/UL (150-450) Mean Platelet Volume 6.2 FL (6.5-10.1) L Neutrophils (%) (Auto) 74.3 % (45.0-75.0) Lymphocytes (%) (Auto) 14.6 % (20.0-45.0) L Monocytes (%) (Auto) 6.7 % (1.0-10.0) Eosinophils (%) (Auto) 3.4 % (0.0-3.0) H Basophils (%) (Auto) 0.9 % (0.0-2.0) Prothrombin Time 18.8 SEC (9.30-11.50) H Prothromb Time International Ratio 1.8 (0.9-1.1) H Sodium Level 141 MMOL/L (136-145) Potassium Level 4.8 MMOL/L (3.5-5.1) Chloride Level 100 MMOL/L (98-107) Carbon Dioxide Level 41 MMOL/L (21-32) *H Anion Gap 0 mmol/L (5-15) L Blood Urea Nitrogen 18 mg/dL (7-18) Creatinine 0.6 MG/DL (0.55-1.30) Estimat Glomerular Filtration Rate mL/min (>60) Glucose Level 118 MG/DL (74-106) H Calcium Level 9.5 MG/DL (8.5-10.1) Total Bilirubin 0.2 MG/DL (0.2-1.0) Aspartate Amino Transf (AST/SGOT) 22 U/L (15-37) Alanine Aminotransferase (ALT/SGPT) 18 U/L (12-78) Alkaline Phosphatase 46 U/L (46-116) Total Protein 7.7 G/DL (6.4-8.2) Albumin 2.7 G/DL (3.4-5.0) L Globulin 5.0 g/dL Albumin/Globulin Ratio 0.5 (1.0-2.7) L Current Medications Medications (Trade) Dose Ordered Sig/Bettina Route PRN Reason Start Time Stop Time Status Last Admin Dose Admin Acetaminophen (Tylenol) 650 mg Q6H PRN ORAL Mild Pain/Temp > 100.5 06/21/18 20:00 07/21/18 19:59 06/26/18 21:25 Amiodarone HCl (Cordarone) 400 mg DAILY ORAL 06/21/18 09:00 07/21/18 08:59 06/28/18 08:35 Amylase/Lipase/ Protease (Pancrease) 2 ea THREE TIMES A DAY ORAL 06/27/18 09:00 07/27/18 08:59 06/28/18 08:35 Aspirin (ASA) 81 mg DAILY ORAL 06/23/18 09:00 07/20/18 08:59 06/28/18 08:35 Atorvastatin Calcium (Lipitor) 20 mg BEDTIME ORAL 06/20/18 21:00 07/20/18 20:59 06/27/18 22:04 Bisacodyl (Dulcolax) 10 mg DAILYPRN PRN RECTAL Constipation 06/23/18 07:45 07/23/18 07:44 06/23/18 17:16 Diphenhydramine HCl (Benadryl) 25 mg HSPRN PRN ORAL Insomnia 06/25/18 21:00 07/25/18 20:59 06/25/18 21:18 Docusate Sodium (Colace) 100 mg THREE TIMES A DAY ORAL 06/21/18 13:00 07/21/18 12:59 06/28/18 08:35 Donepezil HCl (Aricept) 10 mg QHS ORAL 06/20/18 21:00 07/20/18 20:59 06/27/18 22:04 Ergocalciferol (Drisdol) 50,000 intlu ONCE A WEEK ORAL 06/20/18 18:00 07/20/18 17:59 06/27/18 17:06 Furosemide (Lasix) 40 mg DAILY IV 06/26/18 09:00 07/26/18 08:59 06/28/18 08:35 Hydromorphone HCl (Dilaudid) 0.5 mg Q4H PRN IVP For Pain 06/24/18 19:30 07/01/18 19:29 06/25/18 06:38 Ondansetron HCl (Zofran) 4 mg Q6H PRN IVP Nausea & Vomiting 06/20/18 09:00 07/20/18 08:59 Patient Own Medication (Patient's Own Med) 1 ea DAILY ORAL 06/21/18 09:00 07/21/18 08:59 06/28/18 08:36 Patient Own Medication (Patient's Own Med) 1 ea DAILY ORAL 06/21/18 09:00 07/21/18 08:59 06/28/18 08:36 Ropinirole HCl (Requip) 0.25 mg THREE TIMES A DAY ORAL 06/20/18 18:00 07/20/18 17:59 06/28/18 08:35 Senna/Docusate Sodium (Ajnia-Colace) 1 tab BID PRN ORAL Constipation 06/21/18 10:00 07/21/18 09:59 Simethicone (Mylicon) 80 mg QIDPRN PRN ORAL GAS PAIN 06/24/18 13:00 07/24/18 12:59 Sodium Phosphate (Fleet's Sodium Phosl Enema) 133 ml DAILY PRN RECTAL Constipation 06/25/18 11:45 07/25/18 11:44 06/25/18 16:58 Warfarin Sodium (Coumadin per pharmacy) 1 ea DAILY PRN MISC Per rx protocol 06/20/18 16:30 07/20/18 16:29 Warfarin Sodium (Coumadin) 3 mg ONCE ORAL 06/28/18 17:00 06/28/18 19:00 Maria Guadalupe Cordero M.D. Jun 28, 2018 12:34
--- NOTE | 2018-06-28 15:52 | Diagnostic Imaging Report ---
Indication: Abdominal pain Technique: Coronal and axial single shot fast spin-echo breath-hold, axial T2 FRFSE, 2-D thick slab MRCP, AXIAL 2-D FIESTA fat saturated, axial 3-D dual echo breath-hold, water weighted axial LAVA FLEX, revealed 3-D MRCP images were obtained of the abdomen. MIP reconstructions were generated of the bile ducts Comparison: Reference made to CT scan dated 06/24/2018 Findings: Exam is somewhat limited due to respiratory motion artifact. The gallbladder contains a few small signal void filling defects, consistent with small gallstones. Wall does not appear to be thickened. The common bile duct and common hepatic duct are somewhat dilated, measuring up to 10 mm diameter. Only minimal if any intrahepatic biliary ductal dilatation is evident. On the coronal single shot fast spin-echo images, there is suggestion of signal void at the downstream end of the common bile duct, but this area is affected by significant motion artifact and is not corroborated on any the other sequences. On the axial single shot fast spin-echo images as well as the axial FIESTA and T2 images, there is suggestion of slightly hypointense soft tissue at the ampulla which measures approximately 5 7 mm in diameter. As seen on the prior studies, there is a multilobulated cystic lesion versus cluster of cysts, favor the former in the uncinate process of the pancreas. In aggregate, this measures 2.3 cm craniocaudad by 2.2 cm AP by 2.3 cm transverse. This is medial to the main pancreatic duct, and a branch duct connection to the cyst is not clearly evident on any of the sequences. The main pancreatic duct itself is normal in caliber. Bilateral small pleural effusions, right greater than left, are noted. No focal liver lesions. Focal liver lesions described on recent CT scan are not clearly evident on MRI. Mild peripancreatic edema is noted, predominantly in the mesenteric root below the pancreas, although this is marked striking on the CT scan. The spleen, adrenals, kidneys are unremarkable. There is a 14 mm left ovarian cyst incidentally noted 10 mm lung nodule is seen at the right lung base posteriorly Impression: Mildly dilated common bile duct, measuring up to 10 mm diameter. No evidence of choledocholithiasis. There is questionably a small soft tissue mass at the level of the ampulla, but this is far from certain. Further investigation with ERCP may be useful Cholelithiasis Multilobulated cystic lesion (favor) versus clustered cysts in the uncinate process of the pancreas, also previously described. No definite branch duct, so favor that this represents an old pseudocyst, particularly in view of the current history of pancreatitis. However, small branch duct intraductal papillary mucinous neoplasm is also an possibility Evidence of acute pancreatitis, more striking on recent CT scan Bilateral pleural effusions, right greater than left 10 mm right basilar lung nodule, also described on recent CT scan. Consider follow-up chest CT for further evaluation if clinically indicated Incidental finding 14 mm left ovarian cyst
[2018-06-28 16:00] VITALS: BP 117/69
[2018-06-28] MEDS ORDERED: Warfarin Sodium 3mg ORAL SCH (17:00)
[2018-06-28 20:00] VITALS: BP 116/53
[2018-06-28] MEDS: Donepezil 10mg tab ORAL SCH (22:03)
[2018-06-28] MEDS: Atorvastatin 20mg tab ORAL SCH (22:03)
[2018-06-29] VITALS: BP 137/64
[2018-06-29 04:00] VITALS: BP 150/58
[2018-06-29 06:42] LABS: BASOPHILS % (AUTO) 0.9 % (0.0-2.0); EOSINOPHILS % (AUTO) 3.7 % (0.0-3.0); HEMATOCRIT 38.5 % (37.0-47.0); LYMPHOCYTES % (AUTO) 16.7 % (20.0-45.0); MEAN CORPUSCULAR VOLUME 89 FL (80-99); MONOCYTES % (AUTO) 8.9 % (1.0-10.0); NEUTROPHILS % (AUTO) 69.9 % (45.0-75.0); PLATELET COUNT 332 K/UL (150-450); RED BLOOD COUNT 4.32 M/UL (4.20-5.40); WHITE BLOOD COUNT 9.3 K/UL (4.8-10.8)
[2018-06-29 06:49] LABS: INR 1.7 (0.9-1.1)
[2018-06-29 06:57] LABS: ALANINE AMINOTRANSFERASE 16 U/L (12-78); ALBUMIN 2.5 G/DL (3.4-5.0); ALBUMIN/GLOBULIN RATIO 0.5 (1.0-2.7); ALKALINE PHOSPHATASE 42 U/L (46-116); ANION GAP 0 mmol/L (5-15); ASPARTATE AMINO TRANSFERASE 18 U/L (15-37); BILIRUBIN,TOTAL 0.2 MG/DL (0.2-1.0); BLOOD UREA NITROGEN 17 mg/dL (7-18); CALCIUM 9.1 MG/DL (8.5-10.1); CHLORIDE 100 MMOL/L (98-107); CREATININE 0.7 MG/DL (0.55-1.30); POTASSIUM 4.7 MMOL/L (3.5-5.1); SODIUM 142 MMOL/L (136-145)
[2018-06-29 06:59] LABS: CARBON DIOXIDE 43 MMOL/L (21-32)
[2018-06-29 08:00] VITALS: BP 125/65
[2018-06-29] MEDS ORDERED: ONDANSETRON ODT4 MG BC (09:27)
[2018-06-29] MEDS ORDERED: PANCREASE1 EA ORAL (09:27)
[2018-06-29] MEDS ORDERED: PROTONIX40 MG ORAL (09:27)
--- NOTE | 2018-06-29 09:41 | Discharge Summary ---
Discharge Summary Hospital Course Date of Admission Jun 20, 2018 at 03:00 Date of Discharge Admitting Diagnosis ABDOMINAL PAIN KARRIE Salgado is a 78 year old female who was admitted on Jun 20, 2018 at 03:00 for Abdominal Pain Hospital Course 78 yo female with h/o cad s/p cabg presents with severe epigastric pain. States pain is midepigastric, nonradiating, burning, 10/10 in severity, associated with nausea and vomiting. Patient states this started two days before admission. Noted to have leukocytosis, abnormal labs, and CT with possible duodenitis / pancreatic head inflammation. Surgery called to evaluate. Patient was started on broad spectrum abx cefepime/flagyl and ID was consulted. Patient completed course of abx. repeat ct was done which noted old pseudocyst or a branch duct intraductal papillary mucinous neoplasm. MRCP done per GI recs as well showing same concerns of IPMN vs pseudocyst. Patient has improved symptomatically, nausea has improved and patient has finally been able to tolerate diet. discussed wth patient to f/u with PCP for her htn and routine post hospitalization followup, GI for pancreatic cyst and her OB for incidental finding of ovarian cyst. 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 No evidence of choledocholithiasis. There is questionably a small soft tissue mass at the level of the ampulla, but this is far from certain. Further investigation with ERCP may be useful. Cholelithiasis. Multilobulated cystic lesion (favor) versus clustered cysts in the uncinate process of the pancreas, also previously described. No definite branch duct, so favor that this represents an old pseudocyst, particularly in view of the current history of pancreatitis. However, small branch duct intraductal papillary mucinous neoplasm is also an possibility. Evidence of acute pancreatitis, more striking on recent CT scan Bilateral pleural effusions, right greater than left 10 mm right basilar lung nodule, also described on recent CT scan. Consider follow-up chest CT for further evaluation if clinically indicated Incidental finding 14 mm left ovarian cyst -06/24 CT abd/p: : Findings compatible with acute pancreatitis of the pancreatic head and uncinate, also previously reported. There is slight progression of phlegmon along the adjacent mesenteric root. Extensive disease otherwise similar to previous exam. No evidence of necrosis or new peripancreatic fluid collection demonstrated. Small cystic lesions versus multilobulated single lesion within the in segment 8 process of the pancreas. This may reflect an old pseudocyst or a branch duct intraductal papillary mucinous neoplasm. Inflammatory changes in the pelvis with stranding of the pelvic fat. These are nonspecific, may be related to the pancreatic inflammation (although somewhat remote from such),, or could indicate pelvic inflammatory changes either of the uterus/ovaries or rectum. Mild distal rectal wall thickening, may be artifact of under distention, but could indicate proctitis and possibly explain the above findings -06/20 Abd US: Cholelithiasis, also described on recent CT scan. Mildly ectatic main pancreatic duct, significance uncertain. Note patient has diagnosis of pancreatitis on recent CT. 18 x 17 mm cyst within the uncinate process of the pancreas. Given history of pancreatitis, likely a small pseudocyst. However, a cystic neoplasm such as branch duct intraductal papillary mucinous neoplasm is also a possibility -06/20 CT abd/p : Peripancreatic infiltrative changes with edema of the pancreatic head and uncinate process, as well as reactive wall thickening of the adjacent duodenum. Findings are most likely due to an acute pancreatitis. Please correlate with serum pancreatic enzymes. A primary infectious/ inflammatory duodenitis is less likely. Dilated pancreatic side duct or 2 cm cyst seen within the uncinate process. Cholelithiasis, without evidence of biliary obstruction. (1) Abdominal distention Assessment & Plan: likely due to pancreatitis, GS? MRCP completed yesterday evening, results reviewed, concerns for IPMN, f/u outpt with GI for EUS for closer examination pancrealipase added per GI appreciate GI recs monitor may take time to improve appreciate gi and surgery recs ICD Codes: R14.0 - Abdominal distension (gaseous) SNOMED: 87783221 (2) Acute pancreatitis Assessment & Plan: Lipase 309 CT abd/pelvis reviewed, showing concerns for pancreatitis gen surg recs much appreciated tolerated reg diet prn antiemetics pain control monitor closely repeat ct showing fat stranding with pseudocyst , pending MRCP , may need outpt EUS for cyst evaluation ICD Codes: K85.90 - Acute pancreatitis without necrosis or infection, unspecified SNOMED: 344134816 (3) Intractable nausea and vomiting Assessment & Plan: prn antiemetics due to pancreatitis bowel rest pain control stable ICD Codes: R11.2 - Nausea with vomiting, unspecified SNOMED: 412408848 Qualifiers: Qualified Codes: G43.A1 - Cyclical vomiting, intractable (4) Intractable abdominal pain Assessment & Plan: pain control due to pancreatitis/duodenitis/severe constipation resolved ICD Codes: R10.9 - Unspecified abdominal pain SNOMED: 36494177, 373629913 (5) Duodenitis Assessment & Plan: per ct read cefepime flagyl bcx x 2 sent ngtd completed abx course ICD Codes: K29.80 - Duodenitis without bleeding SNOMED: 95891737 (6) Leukocytosis Assessment & Plan: wbc 14 on admit, now improving not septic criteria completed abx course appreciate id recs ICD Codes: D72.829 - Elevated white blood cell count, unspecified SNOMED: 591820352, 959936249 Qualifiers: Qualified Codes: D72.829 - Elevated white blood cell count, unspecified (7) CAD (coronary artery disease) Assessment & Plan: resume home meds stable ICD Codes: I25.10 - Atherosclerotic heart disease of [place] coronary artery without angina pectoris SNOMED: 45616312 Qualifiers: Qualified Codes: I25.10 - Atherosclerotic heart disease of [place] coronary artery without angina pectoris (8) S/P CABG (coronary artery bypass graft) Assessment & Plan: resume home meds when arrives stable ICD Codes: Z95.1 - Presence of aortocoronary bypass graft SNOMED: 68375868, 590986317, 911214135 (9) Constipation Assessment & Plan: continue with bowel care resolved appreciate gi recs ICD Codes: K59.00 - Constipation, unspecified SNOMED: 29489589 Qualifiers: Qualified Codes: K59.03 - Drug induced constipation (10) Weakness generalized Assessment & Plan: is able to ambulate however poor effort discussed with nursing to ambulate patient cont ambulating ambulating well, walking around the hospital without issues ICD Codes: R53.1 - Weakness SNOMED: 83368835 (11) Failure to thrive Assessment & Plan: prn antiemetics pain control appreciate gen surg recs 2/2 severe acute pancreatitis with pseudocyst noted on ct. improving tolerated diet SNOMED: 17035988 Qualifiers: Qualified Codes: R62.7 - Adult failure to thrive (12) Pseudocyst of pancreas Assessment & Plan: will need outpt f/u rrepeat ct in 6 weeks outpt outpt gi f/u will need outpt EUS for cyst evaluation ICD Codes: K86.3 - Pseudocyst of pancreas SNOMED: 190261129 (13) Pleural effusion Assessment & Plan: seems like patient did not receive enough diuresis reviewed cxr b/l pleural effusions noted inc diuresis dec fluid intake monitor ICD Codes: J90 - Pleural effusion, not elsewhere classified SNOMED: 71786375 (14) Hypokalemia Assessment & Plan: resolved ICD Codes: E87.6 - Hypokalemia SNOMED: 27350419 Status: stable ppx: coumadin, scd diet:clear liquid diet as tolerated I have have spent over 31 minutes regarding patient care and counseling and 18 minutes of face to face time patient's case has been complicated by acute severe pancreatitis, repeat ct scan still showing inflammatory pancreatic changes along with pseudocyst will need outpt repeat ct scan in 6 weeks Discharge Medications New Medications: Ondansetron Odt* (Zofran Odt*) 4 Mg Tab.rapdis 4 MG BC EVERY 6 HOURS PRN for 7 Days, #14 TAB 0 Refills Pantoprazole* (Protonix*) 40 Mg Tablet.dr 40 MG ORAL DAILY for 30 Days, #30 TAB Lipase/Amylase/Protease* (Pancrease*) 1 Ea Cap 2 EA ORAL THREE TIMES A DAY for 30 Days, #30 CAP Continued Medications: Amiodarone Hcl* (Amiodarone Hcl*) 400 Mg Tablet 200 MG ORAL DAILY, TAB (This prescription has been renewed) Atorvastatin Calcium* (Atorvastatin Calcium*) 20 Mg Tablet 20 MG ORAL BEDTIME, TAB (This prescription has been renewed) Diltiazem Hcl* (Cardizem Cd*) 120 Mg Cap.er.24h 120 MG ORAL DAILY, CAP (This prescription has been renewed) Do not open, chew or crush capsule; swallow whole Donepezil Hcl* (Donepezil Hcl*) 10 Mg Tab.rapdis 10 MG ORAL DAILY, TAB (This prescription has been renewed) Ergocalciferol (Vitamin D2)* (Vitamin D*) 50,000 Unit Capsule 99910 UNIT ORAL ONCE A WEEK, CAP (This prescription has been renewed) Furosemide* (Lasix*) 40 Mg Tablet 40 MG ORAL DAILY, TAB (This prescription has been renewed) Norethind Ac/Ethinyl Estradiol (Femhrt 0.5 Mg-2.5 Mcg Tablet) 1 Each Tablet 1 EACH PO DAILY, TAB (This prescription has been renewed) Omeprazole (Omeprazole) 20 Mg Capsule.dr 20 MG ORAL DAILY, CAP (This prescription has been renewed) Ropinirole Hcl* (Ropinirole Hcl*) 0.25 Mg Tablet 0.25 MG PO TID, TAB (This prescription has been renewed) Unable to Obtain Medications (Unable To Obtain Meds) 1 Ea Ea (This prescription has been renewed) Warfarin Sod* (Warfarin Sod*) 3 Mg Tablet 3 MG ORAL DAILY, TAB (This prescription has been renewed) Discharge Condition Upon Discharge: improving, stable Discharge Disposition Patient was discharged to home Discharge Diagnoses: (1) Ovarian cyst (2) IPMN (intraductal papillary mucinous neoplasm) (3) Acute pancreatitis (4) Leukocytosis (5) Intractable abdominal pain (6) Intractable nausea and vomiting (7) CAD (coronary artery disease) (8) Cholelithiasis (9) Abdominal pain (10) Duodenitis (11) Constipation (12) Weakness generalized (13) Ileus (14) Abdominal bloating (15) Pseudocyst of pancreas (16) Failure to thrive (17) Pancreatic cyst (18) Pleural effusion (19) Abdominal distention (20) Hypokalemia (21) S/P CABG (coronary artery bypass graft) Liliana Romero MD Jun 29, 2018 09:41
[2018-06-29] MEDS: Aspirin Baby 81mg ORAL SCH (10:02)
[2018-06-29] MEDS: Docusate 100mg cap ORAL SCH ×3 (10:03→18:44)
[2018-06-29] MEDS: Amiodarone 200mg tab ORAL SCH (10:04)
[2018-06-29] MEDS: Pancrease Cap ORAL SCH ×3 (10:05→18:44)
[2018-06-29] MEDS: OMEPRAZOLE 20MG ORAL SCH (10:08)
[2018-06-29] MEDS: NORETHINDRONE ACETATE ORAL SCH (10:08)
[2018-06-29] MEDS: ETHINYL ESTRADIOL ORAL SCH (10:08)
[2018-06-29] MEDS: rOPINIRole 0.25mg tab ORAL SCH ×3 (10:10→18:44)
[2018-06-29 12:00] VITALS: BP 138/60
--- NOTE | 2018-06-29 14:53 | Infectious Diseases Prog Note ---
Assessment/Plan Assessment/Plan Abx: Cefepime 06/20- Flagyl 06/20- Assessment: Acute pancreatitis; improving- ?Ampulla mass -MRCP: : Mildly dilated common bile duct, measuring up to 10 mm diameter. No evidence of choledocholithiasis. There is questionably a small soft tissue mass at the level of the ampulla, but this is far from certain. Further investigation with ERCP may be useful. Cholelithiasis. Multilobulated cystic lesion (favor) versus clustered cysts in the uncinate process of the pancreas, also previously described. No definite branch duct, so favor that this represents an old pseudocyst, particularly in view of the current history of pancreatitis. However, small branch duct intraductal papillary mucinous neoplasm is also an possibility. Evidence of acute pancreatitis, more striking on recent CT scan. Bilateral pleural effusions, right greater than left -06/24 CT abd/p: : Findings compatible with acute pancreatitis of the pancreatic head and uncinate, also previously reported. There is slight progression of phlegmon along the adjacent mesenteric root. Extensive disease otherwise similar to previous exam. No evidence of necrosis or new peripancreatic fluid collection demonstrated. Small cystic lesions versus multilobulated single lesion within the in segment 8 process of the pancreas. This may reflect an old pseudocyst or a branch duct intraductal papillary mucinous neoplasm. Inflammatory changes in the pelvis with stranding of the pelvic fat. These are nonspecific, may be related to the pancreatic inflammation (although somewhat remote from such),, or could indicate pelvic inflammatory changes either of the uterus/ovaries or rectum. Mild distal rectal wall thickening, may be artifact of under distention, but could indicate proctitis and possibly explain the above findings -06/20 Abd US: Cholelithiasis, also described on recent CT scan. Mildly ectatic main pancreatic duct, significance uncertain. Note patient has diagnosis of pancreatitis on recent CT. 18 x 17 mm cyst within the uncinate process of the pancreas. Given history of pancreatitis, likely a small pseudocyst. However, a cystic neoplasm such as branch duct intraductal papillary mucinous neoplasm is also a possibility -06/20 CT abd/p : Peripancreatic infiltrative changes with edema of the pancreatic head and uncinate process, as well as reactive wall thickening of the adjacent duodenum. Findings are most likely due to an acute pancreatitis. Please correlate with serum pancreatic enzymes. A primary infectious/ inflammatory duodenitis is less likely. Dilated pancreatic side duct or 2 cm cyst seen within the uncinate process. Cholelithiasis, without evidence of biliary obstruction. Low grade fever, SP Leukocytosis, mild recurrent, SP -Bcx Neg -u/a neg -Cdiff neg CAD s/p CABG valve surgery (details unclear) Plan: -Continue to monitor off abx -06/27 SP Cefepime and Flagyl #7 -f/u cx -Monitor CBC/CMP, temperatures -Sx, GI f/u -Aspiration precautions Thank you for this consultation. Will continue to follow along with you. Discussed with RN. Subjective Allergies: Coded Allergies: No Known Allergies (Unverified , 06/20/18) Subjective afebrile mild leukocytosis resolved Objective Vital Signs Last 24 Hour Vital Signs Date Time Temp Pulse Resp B/P (MAP) Pulse Ox O2 Delivery O2 Flow Rate FiO2 06/29/18 09:00 Nasal Cannula 2.0 Room Air 06/29/18 08:00 97.2 69 19 125/65 (85) 94 06/29/18 04:00 97.7 63 18 150/58 (88) 92 06/29/18 00:00 98.1 54 17 137/64 (88) 99 06/28/18 21:00 Nasal Cannula 2.0 Nasal Cannula 2.0 06/28/18 20:00 97.7 61 17 116/53 (74) 98 06/28/18 16:00 98.6 70 19 117/69 (85) 99 Height (Feet): 5 Height (Inches): 6.00 Weight (Pounds): 168 Objective General Appearance: WD/WN, alert, moderate distress Lines, tubes and drains: peripheral HEENT: normocephalic, atraumatic, anicteric, mucous membranes moist, PERRL Neck: non-tender, normal alignment, supple, normal inspection Respiratory/Chest: chest wall non-tender, lungs clear, normal breath sounds, no respiratory distress, no accessory muscle use Cardiovascular/Chest: normal peripheral pulses Abdomen: normal bowel sounds, soft, no organomegaly, no mass, tender - midepigastric ttp Extremities: normal range of motion, non-tender, normal inspection, no calf tenderness, normal capillary refill Skin Exam: normal pigmentation, warm/dry Laboratory Tests Test 06/29/18 05:50 White Blood Count 9.3 K/UL (4.8-10.8) Red Blood Count 4.32 M/UL (4.20-5.40) Hemoglobin 13.0 G/DL (12.0-16.0) Hematocrit 38.5 % (37.0-47.0) Mean Corpuscular Volume 89 FL (80-99) Mean Corpuscular Hemoglobin 30.1 PG (27.0-31.0) Mean Corpuscular Hemoglobin Concent 33.8 G/DL (32.0-36.0) Red Cell Distribution Width 12.0 % (11.6-14.8) Platelet Count 332 K/UL (150-450) Mean Platelet Volume 6.0 FL (6.5-10.1) L Neutrophils (%) (Auto) 69.9 % (45.0-75.0) Lymphocytes (%) (Auto) 16.7 % (20.0-45.0) L Monocytes (%) (Auto) 8.9 % (1.0-10.0) Eosinophils (%) (Auto) 3.7 % (0.0-3.0) H Basophils (%) (Auto) 0.9 % (0.0-2.0) Prothrombin Time 17.0 SEC (9.30-11.50) H Prothromb Time International Ratio 1.7 (0.9-1.1) H Sodium Level 142 MMOL/L (136-145) Potassium Level 4.7 MMOL/L (3.5-5.1) Chloride Level 100 MMOL/L (98-107) Carbon Dioxide Level 43 MMOL/L (21-32) *H Anion Gap 0 mmol/L (5-15) L Blood Urea Nitrogen 17 mg/dL (7-18) Creatinine 0.7 MG/DL (0.55-1.30) Estimat Glomerular Filtration Rate mL/min (>60) Glucose Level 108 MG/DL (74-106) H Calcium Level 9.1 MG/DL (8.5-10.1) Total Bilirubin 0.2 MG/DL (0.2-1.0) Aspartate Amino Transf (AST/SGOT) 18 U/L (15-37) Alanine Aminotransferase (ALT/SGPT) 16 U/L (12-78) Alkaline Phosphatase 42 U/L (46-116) L Total Protein 7.1 G/DL (6.4-8.2) Albumin 2.5 G/DL (3.4-5.0) L Globulin 4.6 g/dL Albumin/Globulin Ratio 0.5 (1.0-2.7) L Current Medications Medications (Trade) Dose Ordered Sig/Bettina Route PRN Reason Start Time Stop Time Status Last Admin Dose Admin Acetaminophen (Tylenol) 650 mg Q6H PRN ORAL Mild Pain/Temp > 100.5 06/21/18 20:00 07/21/18 19:59 06/26/18 21:25 Amiodarone HCl (Cordarone) 400 mg DAILY ORAL 06/21/18 09:00 07/21/18 08:59 06/29/18 10:04 Amylase/Lipase/ Protease (Pancrease) 2 ea THREE TIMES A DAY ORAL 06/27/18 09:00 07/27/18 08:59 06/29/18 12:53 Aspirin (ASA) 81 mg DAILY ORAL 06/23/18 09:00 07/20/18 08:59 06/29/18 10:02 Atorvastatin Calcium (Lipitor) 20 mg BEDTIME ORAL 06/20/18 21:00 07/20/18 20:59 06/28/18 22:03 Bisacodyl (Dulcolax) 10 mg DAILYPRN PRN RECTAL Constipation 06/23/18 07:45 07/23/18 07:44 06/23/18 17:16 Diphenhydramine HCl (Benadryl) 25 mg HSPRN PRN ORAL Insomnia 06/25/18 21:00 07/25/18 20:59 06/25/18 21:18 Docusate Sodium (Colace) 100 mg THREE TIMES A DAY ORAL 06/21/18 13:00 07/21/18 12:59 06/29/18 12:53 Donepezil HCl (Aricept) 10 mg QHS ORAL 06/20/18 21:00 07/20/18 20:59 06/28/18 22:03 Ergocalciferol (Drisdol) 50,000 intlu ONCE A WEEK ORAL 06/20/18 18:00 07/20/18 17:59 06/27/18 17:06 Furosemide (Lasix) 40 mg DAILY IV 06/26/18 09:00 07/26/18 08:59 06/29/18 11:12 Hydromorphone HCl (Dilaudid) 0.5 mg Q4H PRN IVP For Pain 06/24/18 19:30 07/01/18 19:29 06/25/18 06:38 Ondansetron HCl (Zofran) 4 mg Q6H PRN IVP Nausea & Vomiting 06/20/18 09:00 07/20/18 08:59 Patient Own Medication (Patient's Own Med) 1 ea DAILY ORAL 06/21/18 09:00 07/21/18 08:59 06/29/18 10:08 Patient Own Medication (Patient's Own Med) 1 ea DAILY ORAL 06/21/18 09:00 07/21/18 08:59 06/29/18 10:08 Ropinirole HCl (Requip) 0.25 mg THREE TIMES A DAY ORAL 06/20/18 18:00 07/20/18 17:59 06/29/18 12:53 Senna/Docusate Sodium (Jania-Colace) 1 tab BID PRN ORAL Constipation 06/21/18 10:00 07/21/18 09:59 Simethicone (Mylicon) 80 mg QIDPRN PRN ORAL GAS PAIN 06/24/18 13:00 07/24/18 12:59 Sodium Phosphate (Fleet's Sodium Phosl Enema) 133 ml DAILY PRN RECTAL Constipation 06/25/18 11:45 07/25/18 11:44 06/25/18 16:58 Warfarin Sodium (Coumadin per pharmacy) 1 ea DAILY PRN MISC Per rx protocol 06/20/18 16:30 07/20/18 16:29 Warfarin Sodium (Coumadin) 4 mg ONCE PO 06/29/18 17:00 06/29/18 19:00 Maria Guadalupe Cordero M.D. Jun 29, 2018 14:53
--- NOTE | 2018-06-29 16:01 | GI Progress Note ---
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 - Pseudocyst of pancreas SNOMED: 928453560 (2) Abdominal bloating ICD Codes: R14.0 - Abdominal distension (gaseous) SNOMED: 452750547 (3) Ileus ICD Codes: K56.7 - Ileus, unspecified SNOMED: 627109533 (4) Constipation ICD Codes: K59.00 - Constipation, unspecified SNOMED: 34703444 Qualifiers: Qualified Codes: K59.03 - Drug induced constipation (5) Abdominal pain ICD Codes: R10.9 - Unspecified abdominal pain SNOMED: 09713105 Qualifiers: Qualified Codes: R10.84 - Generalized abdominal pain (6) Acute pancreatitis ICD Codes: K85.90 - Acute pancreatitis without necrosis or infection, unspecified SNOMED: 672421216 Status: stable Status Narrative Discussed with Dr. Garcia. Assessment/Plan CT AP reviewed >> Findings compatible with acute pancreatitis of the pancreatic head and uncinate, also previously reported. No evidence of necrosis or new peripancreatic fluid collection demonstrated. MRCP reviewed >> patient most likely had gallstone pancreatitis in which the stone has passed. MRCP also showed possible small mass at the level of the ampulla. abdominal distention most likely due to pancreatitis CA19-9 still pending plan for dc today needs outpatient EGD/colonoscopy screening. outpatient EGD/EUS to evaluate pancreatic cyst and/or EGD with side view scope to evaluate the possible small mass at the ampulla encourage turning q2 hours and ambulation as tolerated zofran prn outpatient f/u with surgery for cholecystectomy The patient was seen and examined at bedside and all new and available data was reviewed in the patients chart. I agree with the above findings, impression and plan. (Patient seen earlier today. Signature stamp does not reflect patient encounter time.). - Heath Garcia MD Subjective Subjective abdominal bloating Objective Last 24 Hour Vital Signs Date Time Temp Pulse Resp B/P (MAP) Pulse Ox O2 Delivery O2 Flow Rate FiO2 06/29/18 09:00 Nasal Cannula 2.0 Room Air 06/29/18 08:00 97.2 69 19 125/65 (85) 94 06/29/18 04:00 97.7 63 18 150/58 (88) 92 06/29/18 00:00 98.1 54 17 137/64 (88) 99 06/28/18 21:00 Nasal Cannula 2.0 Nasal Cannula 2.0 06/28/18 20:00 97.7 61 17 116/53 (74) 98 06/28/18 16:00 98.6 70 19 117/69 (85) 99 Intake and Output 06/28/18 06/29/18 19:00 07:00 Intake Total 480 ml Balance 480 ml Intake Oral 480 ml # Voids 3 2 # Bowel Movements 1 Laboratory Tests Test 06/29/18 05:50 White Blood Count 9.3 K/UL (4.8-10.8) Red Blood Count 4.32 M/UL (4.20-5.40) Hemoglobin 13.0 G/DL (12.0-16.0) Hematocrit 38.5 % (37.0-47.0) Mean Corpuscular Volume 89 FL (80-99) Mean Corpuscular Hemoglobin 30.1 PG (27.0-31.0) Mean Corpuscular Hemoglobin Concent 33.8 G/DL (32.0-36.0) Red Cell Distribution Width 12.0 % (11.6-14.8) Platelet Count 332 K/UL (150-450) Mean Platelet Volume 6.0 FL (6.5-10.1) L Neutrophils (%) (Auto) 69.9 % (45.0-75.0) Lymphocytes (%) (Auto) 16.7 % (20.0-45.0) L Monocytes (%) (Auto) 8.9 % (1.0-10.0) Eosinophils (%) (Auto) 3.7 % (0.0-3.0) H Basophils (%) (Auto) 0.9 % (0.0-2.0) Prothrombin Time 17.0 SEC (9.30-11.50) H Prothromb Time International Ratio 1.7 (0.9-1.1) H Sodium Level 142 MMOL/L (136-145) Potassium Level 4.7 MMOL/L (3.5-5.1) Chloride Level 100 MMOL/L (98-107) Carbon Dioxide Level 43 MMOL/L (21-32) *H Anion Gap 0 mmol/L (5-15) L Blood Urea Nitrogen 17 mg/dL (7-18) Creatinine 0.7 MG/DL (0.55-1.30) Estimat Glomerular Filtration Rate mL/min (>60) Glucose Level 108 MG/DL (74-106) H Calcium Level 9.1 MG/DL (8.5-10.1) Total Bilirubin 0.2 MG/DL (0.2-1.0) Aspartate Amino Transf (AST/SGOT) 18 U/L (15-37) Alanine Aminotransferase (ALT/SGPT) 16 U/L (12-78) Alkaline Phosphatase 42 U/L (46-116) L Total Protein 7.1 G/DL (6.4-8.2) Albumin 2.5 G/DL (3.4-5.0) L Globulin 4.6 g/dL Albumin/Globulin Ratio 0.5 (1.0-2.7) L Height (Feet): 5 Height (Inches): 6.00 Weight (Pounds): 168 General Appearance: WD/WN, no apparent distress, alert Cardiovascular: normal rate Respiratory/Chest: normal breath sounds, no respiratory distress Abdominal Exam: normal bowel sounds, non tender, soft Extremities: normal range of motion, non-tender Vannessa Pizarro NP Jun 29, 2018 16:01
[2018-06-29] MEDS ORDERED: Warfarin Sodium 4mg PO SCH (17:00)
== END 2018-06-29 20:00 | disposition home or self-care (01) | DRG 439 ==
LOC: EMR 02:30 → 4E 03:00 → EDBEDREQ 04:07
DX: K85.90 Acute pancreatitis without necrosis or infection, unspecified (principal); K56.7 Ileus, unspecified; K86.3 Pseudocyst of pancreas; K29.80 Duodenitis without bleeding; I25.10 Atherosclerotic heart disease of native coronary artery without angina pectoris; Z95.1 Presence of aortocoronary bypass graft; N83.209 Unspecified ovarian cyst, unspecified side; K80.20 Calculus of gallbladder without cholecystitis without obstruction; R62.7 Adult failure to thrive; E87.6 Hypokalemia; K59.00 Constipation, unspecified; D49.0 Neoplasm of unspecified behavior of digestive system
CPT/HCPCS: 36415; 71045; 74018; 74177; 74181; 76700; 80048; 80053; 80061; 80307; 80329; 81003; 82150; 82270; 83605; 83690; 83735; 84484; 85007; 85025; 85610; 85651; 85730; 86140; 86850; 86900; 86901; 87040; 87324; 93005; 94664; 94760; 96361; 96365; 96368; 96375; 96376; 99285; J2405; J8499

== ENCOUNTER 2019-06-01 19:42 | Emergency (ER) | payer MEDICARE, OTHER ==
[~2019-06-01] VITALS: Ht 165.1 cm; Wt 70.3 kg
[~2019-06-01 19:42] MED LIST: AMIODARONE HCL400 M1 ORAL; ATORVASTATIN CA20 MG ORAL; CARDIZEM CD120 MG ORAL; DONEPEZIL HCL10 M2 ORAL; FEMHRT 0.5 MG-1 EACH PO; FUROSEMIDE40 MG ORAL; OMEPRAZOLE20 M2 ORAL; ONDANSETRON ODT4 MG BC; PANCREASE1 EA ORAL; PROTONIX40 MG ORAL; ROPINIROLE HC0.25 MG PO; UNOBMED; VITAMIN D250000 UNI1 ORAL; WARFARIN SODIUM3 MG ORAL
--- NOTE | 2019-06-01 19:50 | NUR ---
ED Nurse Note: Pt walked in c/o LT big toe pain d/t dropping a cermaic pot on her toe around 1700. 9/10 pain. Pt complains of RT thumb pain. Pt takes coumadin at home. Pt ambulatory with limp and cane
--- NOTE | 2019-06-01 20:03 | Emergency Room Report ---
History of Present Illness General Chief Complaint: Lower Extremity Injury Source: Patient Present Illness HPI 79-year-old female presents to the emergency department complaining of 9 out of 10 severity pain, swelling and bruising localized to the base of the left toe x1 day. Patient reports she dropped a heavy ceramic pot onto her foot and had acute onset of her symptoms. Patient states she is able to bear weight and ambulate however this exacerbates her pain. Patient states she is currently on Coumadin she denies open wounds or bleeding. Patient also reports 6 out of 10 severity pain at the base of the right thumb x2.5 months. Patient denies appreciable trauma or fall she denies swelling, erythema, or warmth. Denies numbness tingling or loss of sensation or gross motor movements of the extremities, incontinence of bowel or bladder. Denies CP, Palpitations, LOC, AMS , dizziness, Changes in Vision, weakness or a sudden severe headache. Allergies: Coded Allergies: No Known Allergies (Unverified , 06/20/18) Patient History Past Medical History: see triage record Past Surgical History: none Pertinent Family History: none Last Menstrual Period: na Now: No Reviewed Nursing Documentation: PMH: Agreed Nursing Documentation-PMH Hx Cardiac Problems: Yes - heart valve surgery Hx Cancer: No Hx Gastrointestinal Problems: No Hx Neurological Problems: No Review of Systems All Other Systems: negative except mentioned in HPI Physical Exam Vital Signs Date Time Temp Pulse Resp B/P (MAP) Pulse Ox O2 Delivery O2 Flow Rate FiO2 06/01/19 19:44 98.8 109 18 136/75 (95) 96 Room Air Sp02 EP Interpretation: reviewed, normal General Appearance: alert, GCS 15, non-toxic, mild distress Head: normocephalic, atraumatic Eyes: bilateral eye normal inspection, bilateral eye PERRL ENT: hearing grossly normal, normal voice Neck: full range of motion Respiratory: lungs clear, normal breath sounds, speaking full sentences Cardiovascular #1: regular rate, rhythm, normal capillary refill Cardiovascular #2: 2+ dorsalis pedis (R), 2+ dorsalis pedis (L) Musculoskeletal: gait/station normal - with cane and showing compensation of the left foot. , normal range of motion, swelling - left great toe, bruising and ttp., tender - Left great toe, and base of the right thumb, no snuff box ttp. no obvious deformities. ROM limited due to pain with exam. Neurologic: alert, oriented x3, responsive, motor strength/tone normal, sensory intact, speech normal, grossly normal Psychiatric: judgement/insight normal Skin: Ecchymosis/Bruising - left great toe, no nail involvement. no open wounds / bleeding Lymphatic: no adenopathy Medical Decision Making SOLE Attestation Dr. Rivas is my supervising Physician whom patient management has been discussed with. Diagnostic Impression: Primary Impression: Fractured great toe Qualified Codes: S92.425A - Nondisplaced fracture of distal phalanx of left great toe, initial encounter for closed fracture Additional Impression: Pain of right thumb ER Course 79-year-old female presents to the emergency department complaining of 9 out of 10 severity pain, swelling and bruising localized to the base of the left toe x1 day. Patient reports she dropped a heavy ceramic pot onto her foot and had acute onset of her symptoms. Patient states she is able to bear weight and ambulate however this exacerbates her pain. Patient states she is currently on Coumadin she denies open wounds or bleeding. Patient also reports 6 out of 10 severity pain at the base of the right thumb x2.5 months. Patient denies appreciable trauma or fall she denies swelling, erythema, or warmth. Denies numbness tingling or loss of sensation or gross motor movements of the extremities, incontinence of bowel or bladder. Denies CP, Palpitations, LOC, AMS , dizziness, Changes in Vision, weakness or a sudden severe headache. Ddx considered but are not limited to Fracture, dislocation, contusion, Sprain/ Strain/Spasm, Hematoma, compartment syndrome/ crush injury. Vital signs: are WNL, pt. is afebrile H&PE are most consistent with musculoskeletal injury will perform imaging to r/ o fractures/dislocations. ORDERS: - X-ray Left toes 3 views, and right hand 3 views - POSITIVE for DISTAL PHALANX FX OF THE LEFT GREAT TOE, no Dislocation, or significant soft tissue injury, per preliminary read in ED, and signed by SOLE Charles, my supervising physician has reviewed, and agrees with my interpretation. ED INTERVENTIONS: - Tylenol PO -[place] PO - Surgical walking shoe/boot splint applied to the left foot by mathematical engineering technician. Pt. remains neurovascularly intact. DISCHARGE: At this time pt. is stable for d/c to home. Will provide printed patient care instructions, and any necessary prescriptions. Care plan and follow up instructions have been discussed with the patient prior to discharge. Other X-Ray Diagnostic Results Other X-Ray Diagnostic Results #1: X-Ray ordered: Left toes # of Views/Limited Vs Complete: 3 View Indication: Pain EP Interpretation: Yes SOLE Xray: Interpretation reviewed, by supervising MD, and agrees with findings. Interpretation: no dislocation, no soft tissue swelling, other - POSITIVE for DISTAL PHALANX FX OF THE LEFT GREAT TOE Impression: Other - abnormal: Fx Electronically Signed by: Eli Charles PA-C Other X-Ray Diagnostic Results #2: X-Ray ordered: Right hand # of Views/Limited Vs Complete: 3 View Indication: Pain EP Interpretation: Yes SOLE Xray: Interpretation reviewed, by supervising MD, and agrees with findings. Interpretation: no dislocation, no soft tissue swelling, no fractures Impression: No acute disease Electronically Signed by: Eli Charles PA-C Last Vital Signs Date Time Temp Pulse Resp B/P (MAP) Pulse Ox O2 Delivery O2 Flow Rate FiO2 06/01/19 19:44 98.8 109 18 136/75 (95) 96 Room Air Disposition: HOME, SELF-CARE Condition: Stable Scripts Hydrocodone Bit/Acetaminophen 5-325* (NORCO 5-325*) 1 Each Tablet 1 TAB ORAL Q6H PRN for For Pain, #12 TAB 0 Refills Prov: Eli Charles 06/01/19 Patient Instructions: Joint Pain, [id number], Toe Fracture Additional Instructions: Take medications as directed. Do not drink alcohol, drive, or operate heavy machinery while taking [place] as this may cause drowsiness. Follow up with an EQUIPMENT SALES SPECIALIST in 3-5 days, even if your symptoms have resolved. If symptoms persist MRI may be required at the discretion of your PCP or Ortho Specialist. --Please review list of primary care clinics, if you do not already have a primary care provider who can give you an Orthopedic Referral. Return sooner to ED if new symptoms occur, or current symptoms become worse. - Please note that this Emergency Department Report was dictated using [employer] technology software, occasionally this can lead to erroneous entry secondary to interpretation by the dictation equipment. Eli Charles Jun 01, 2019 20:03
[2019-06-01] MEDS ORDERED: NORCO 5-325 TA1 EACH ORAL (20:38)
--- NOTE | 2019-06-01 20:55 | NUR ---
ED Nurse Note: pt dc per ermd order, pt given orthopedic boot, and walker. pt refused walker because she states "I have walker at home". pt is accompanied by . ID band removed, pt able to ambulate with her cane with steady gait.
[2019-06-01 20:56] VITALS: BP 132/76
--- NOTE | 2019-06-02 12:23 | Diagnostic Imaging Report ---
Indication: Right hand pain Technique: 3 views right hand Comparison: none Findings: No acute fractures. No dislocations. There are mild degenerative changes of the second through fifth distal interphalangeal joints and the first interphalangeal joint. There is also mild degenerative narrowing of the radiocarpal joint. Small ossific density projected adjacent to the ulnar styloid may reflect an old ununited fracture. Impression: No acute bony trauma Degenerative changes as described This agrees with the preliminary interpretation provided by the emergency room physician
--- NOTE | 2019-06-02 12:25 | Diagnostic Imaging Report ---
Indication: Pain, trauma Technique: 3 views of the left great toe Comparison: none Findings: There is a transverse fracture of the first distal phalanx. This is nondisplaced. No other acute fractures. There is mild bunion formation. Impression: Positive for first distal phalangeal fracture This agrees with the preliminary interpretation provided by the emergency room physician
== END 2019-06-01 20:56 | disposition home or self-care (01) ==
LOC: EMR 20:17
DX: S92.425A Nondisplaced fracture of distal phalanx of left great toe, initial encounter for closed fracture (principal); W22.8XXA Striking against or struck by other objects, initial encounter; Y93.9 Activity, unspecified; Y92.9 Unspecified place or not applicable; Z98.890 Other specified postprocedural states
CPT/HCPCS: 99284